=== PATIENT | female | born 1960 ===

== ENCOUNTER 2020-03-27 16:22 | Emergency (ER) | payer MEDICAID, SELFPAY ==
[2020-03-27 16:38] VITALS: BP 159/73; PULSE 74; RESP 18; TEMP 36.8; O2SAT 96; BMI 27.4
[2020-03-27 19:39] VITALS: BP 169/73; PULSE 72; RESP 18; TEMP 36.6; O2SAT 99
--- NOTE | 2020-03-27 19:58 | ED.FALL ---
HPI - Fall General Chief Complaint: Fall Stated Complaint: mechanical fall, left elbow pain Time Seen by Provider: 03/27/20 19:37 Source: patient Mode of arrival: ambulatory Limitations: no limitations History of Present Illness HPI Narrative: 60 y/o female who presents with left hip, left elbow and back pain after she was tripped up by 2 dogs and fell on the sidewalk today. She hit her head on the snow, did not lose consciousness. She is not on blood thinners. She was able to get up and run away. She reports soreness in her entire left back, hip and elbow (when she bends it fully). She denies headache or neck pain. She is able to ambulate normally. complaint: fall Onset (ago): hour(s) (6) Fall from: standing Fall witnessed: yes, by family and yes, by bystander Place fall occurred: street Loss of consciousness: none Prolonged down time: no Symptoms prior to fall: none Context: tripped/slipped Location of injury: back and pelvis Location of injury - extremities: left: shoulder and elbow Severity: mild Quality: aching Associated symptoms (after fall): denies Related Data Previous Rx's Medication Instructions Recorded cyclobenzaprine 10 mg PO TID PRN #10 tab 03/27/20 ibuprofen 600 mg PO Q8H PRN #20 tab 03/27/20 lidocaine [Lidoderm] 1 patch TOPICAL DAILY #15 ea 03/27/20 Allergies Allergy/AdvReac Type Severity Reaction Status Date / Time No Known Allergies Allergy Unverified 10/31/19 15:21 Review of Systems Review of Systems: Constitutional: No Fever, No Chills Cardiovascular: No Chest Pain, No SOB, No Orthopnea, No Edema Respiratory: No Cough, No Sputum, No Wheezing, No dyspnea Gastrointestinal: No Nausea, No Vomiting, No Diarrhea, No abdominal Pain Musculoskeletal: + joint pain, + Myalgias Skin: No Skin Lesions, No rash Neuro: No Weakness, No Numbness, No Dizziness, No Headache Psych: + Anxiety/Panic, No Depression Heme/Lymph: No Bruising, No Lymphadenopathy PMFSH Social History Social History Alcohol intake: never Smoking Status: Unknown if ever smoked Smoked in Last 30 Days: No Use of substances other than those prescribed or required for medical reasons: No Advance Directives: No Advance Directives Information Provided: No Physical Exam Vital Signs: Vital Signs: Last Vital Signs Temp 97.9 F 03/27/20 19:39 Pulse 72 03/27/20 19:39 Resp 18 03/27/20 19:39 BP 169/73 H 03/27/20 19:39 Pulse Ox 99 03/27/20 19:39 Body Mass Index 27.4 Appearance: Alert. Oriented X3. No acute distress. HEENT: normal inspection CVS: Normal heart rate and rhythm. Pulses normal. Respiratory: No respiratory distress. Skin: Skin warm and dry. Normal skin color. Normal skin turgor. No rashes. Extremities: left sided soft tissue tenderness of the hip Neuro: Oriented X 3. No motor deficit. No sensory deficit. Course Course Course Narrative: 60 y/o presenting with left sided pain after a mechanical fall outside earlier today. Given mechanism and exam findings there is very low suspicion for bony injury, fracture or traumatic intracranial injury. She is ambulating with steady gait and only has soft tissue tenderness and small abrasion to left elbow. Will treat for muscle contusions with NSAID and muscle relaxer. She has been counseled and she agrees with plan. She agrees to follow up with her PCP next week. She is stable for discharge. Critical Care Time Critical Care Time Critical Care Time: No Discharge Plan Discharge Clinical Impression: Abrasion Contusion Qualifiers: Encounter type: initial encounter Contusion area: hip Laterality: left Qualified Code(s): S70.02XA - Contusion of left hip, initial encounter Patient Disposition: Home, Self-Care Instructions: Contusion in Adults (ED), Abrasion (ED) Additional Instructions: No bending, lifting or twisting. Use ice several times per day for 20 minutes at a time for the next 48 hours and then change to heat. Take medications as prescribed to help with pain and discomfort. Follow up with your Primary Care Doctor this week. If your pain worsens, if you develop new severe, headache, numbness, tingling, weakness call 911 or come back to the ER right away for evaluation. Prescriptions: New cyclobenzaprine 10 mg tablet 10 mg PO TID PRN (Reason: muscle spasm) Qty: 10 RF: 0 lidocaine [Lidoderm] 5 % adhesive patch,medicated 1 patch topical DAILY Qty: 15 RF: 0 ibuprofen 600 mg tablet 600 mg PO Q8H PRN (Reason: pain) Qty: 20 RF: 0 Interventions: ED Discharge Assessment Last Done: 03/27/20 20:12 Print Language: English
[2020-03-27] MEDS: Acetaminophen 325 MG TABLET 975 MG PO (20:10)
[2020-03-27] MEDS: Ibuprofen 600 MG TABLET PO (20:10)
== END 2020-03-27 20:18 | disposition home or self-care (01) ==
PROVIDERS: Emergency Provider Emergency Medicine; PCP Nurse Practitioner Family
DX: S70.02XA Contusion of left hip, initial encounter (principal); S50.312A Abrasion of left elbow, initial encounter; W01.0XXA Fall on same level from slipping, tripping and stumbling without subsequent striking against object, initial encounter; Y93.K1 Activity, walking an animal; Y92.480 Sidewalk as the place of occurrence of the external cause; Y99.9 Unspecified external cause status
CPT/HCPCS: 99283; 99284

== ENCOUNTER 2020-12-11 15:16 | Outpatient (REF) | payer MEDICAID, SELFPAY ==
[2020-12-11 16:32] LABS: MANUAL DIFF FLAG NO
[2020-12-11 17:49] LABS: Basophils Percent Auto 0.4 % (0-2); Eosinophils Absolute Auto 0.1 X10*3/uL (0.0-0.4); Eosinophils Percent Auto 1.2 % (0-4); Hematocrit 38.3 % (37-47); Hemoglobin 12.2 g/dl (12.0-16.0); Imm Gran Abs Auto 0.01 X10*3/uL (0.00-0.03); Imm Gran Pct Auto 0.1 % (0.0-0.4); Lymphocytes Absolute Auto 2.3 X10*3/uL (1.2-4.9); Lymphocytes Percent Auto 31.6 % (20-40); Mean Corpuscular HGB Conc 31.9 g/dl (31.0-35.0); Mean Corpuscular Hemoglobin 27.1 pg (27.0-33.0); Mean Corpuscular Volume 85.1 fL (80-98); Mean Platelet Volume 11.8 fL (9.4-12.3); Monocytes Absolute Auto 0.5 X10*3/uL (0.1-1.2); Monocytes Percent Auto 6.8 % (2-11); Neutrophils Absolute Auto 4.4 X10*3/uL (2.0-8.3); Neutrophils Percent Auto 59.9 % (45-73); Platelet Count 199 X10*3/uL (160-400); White Blood Count 7.4 X10*3/uL (4.8-10.8)
[2020-12-11 18:06] LABS: Alanine Aminotransferase 17 U/L (0-31); Alkaline Phosphatase 73 U/L (39-117); Anion Gap 12 (12-20); Aspartate Amino Transferase 21 U/L (5-31); Bilirubin Total 0.3 mg/dL (0.0-1.0); Blood Urea Nitrogen 12 mg/dL (9-16); Calcium 8.9 mg/dL (8.4-10.2); Carbon Dioxide 27 mmol/L (22-29); Chloride 106 mmol/L (96-108); Estimated Glomerular Filt Rate > 60; Glucose Random 102 mg/dL (60-115); Sodium 141 mmol/L (135-145); Total Protein 6.5 g/dL (6.5-8.0)
== END 2020-12-11 15:17 | disposition home or self-care (01) ==
LOC: HO.LAB 15:16
PROVIDERS: PCP Registered Nurse Community Health; Visit Provider Nurse Practitioner
DX: Z01.818 Encounter for other preprocedural examination (principal)
CPT/HCPCS: 36415; 80053; 85025; 99202

== ENCOUNTER 2021-04-22 10:02 | Outpatient (REF) | payer MEDICAID, SELFPAY ==
--- NOTE | ~2021-04-22 | XR_ITS ---
EXAMINATION: XR ANKLE, RIGHT CLINICAL INFORMATION: Pain COMPARISON: 04/21/2009 TECHNIQUE: AP, lateral, and mortise views of the right ankle. FINDINGS: No fracture or dislocation. The ankle mortise is congruent. There is prominent hypertrophic spurring of the plantar aponeurosis and Achilles insertion to the calcaneus. Mild degenerative changes of the midfoot with small osteophytes noted. No joint effusion. The soft tissues are unremarkable. XR/XR ankle RT min 3V IMPRESSION: Mild degenerative change of the midfoot. Large heel spurs.
--- NOTE | ~2021-04-22 | XR_ITS ---
EXAMINATION: XR LUMBOSACRAL SPINE CLINICAL INFORMATION: Pain COMPARISON: 02/23/2011 TECHNIQUE: Three views of the lumbosacral spine. FINDINGS: No fracture or subluxation. Vertebral body height and alignment maintained. Disc spaces are maintained. Small endplate osteophytes are seen at the mid to lower lumbar spine. The sacroiliac joints are symmetric. The visualized sacrum is intact. Normal bowel gas pattern. XR/XR lumbar spine 2-3V IMPRESSION: Mild degenerative changes of the lumbar spine. These have progressed since 2011.
--- NOTE | ~2021-04-22 | XR_ITS ---
EXAMINATION: XR KNEE, RIGHT CLINICAL INFORMATION: Right knee pain. COMPARISON: 04/21/2009 TECHNIQUE: Four views of the right knee. FINDINGS: No fracture or subluxation. Compartmental joint spaces are maintained. Small tricompartmental marginal osteophytes. No joint effusion. Enthesophyte formation of the patella. The soft tissues appear unremarkable. XR/XR knee RT 4V IMPRESSION: Mild tricompartment degenerative changes of the right knee.
== END 2021-04-22 10:03 | disposition home or self-care (01) ==
LOC: HO.XRAY 10:02
PROVIDERS: Absent Provider Registered Nurse Community Health; PCP Registered Nurse Community Health; Visit Provider Emergency Medicine
DX: M25.561 Pain in right knee (principal); M54.41 Lumbago with sciatica, right side; M79.671 Pain in right foot
CPT/HCPCS: 72100; 73564; 73610

== ENCOUNTER → 2021-05-04 14:53 | Outpatient (BNVA) | payer MEDICAID, SELFPAY | PROVIDERS: PCP Registered Nurse Community Health; Visit Provider Nurse Practitioner Family | DX: M47.816 Spondylosis without myelopathy or radiculopathy, lumbar region (principal); M25.561 Pain in right knee; M17.11 Unilateral primary osteoarthritis, right knee; M54.50 Low back pain, unspecified; M53.3 Sacrococcygeal disorders, not elsewhere classified; M25.562 Pain in left knee | CPT/HCPCS: 99202 ==

== ENCOUNTER 2021-05-25 06:07 | Outpatient (REF) | payer MEDICAID, SELFPAY | END 2021-05-25 06:08 | disposition home or self-care (01) | LOC: HO.RADIR 06:07 | PROVIDERS: Visit Provider Anesthesiology | DX: Z13.89 Encounter for screening for other disorder (principal) ==

== ENCOUNTER 2021-06-15 10:53 | Outpatient (REF) | payer MEDICAID, SELFPAY ==
--- NOTE | ~2021-06-15 | MM_ITS ---
EXAMINATION: MM SCREENING DIGITAL BREAST TOMOSYNTHESIS, BILATERAL CLINICAL INFORMATION: Screening. Asymptomatic. The lifetime risk of breast cancer based on the Tyrer-Cuzick Model is 4%. COMPARISON: Mammography: 12/18/2018, 09/12/2017, 08/03/2016 TECHNIQUE: Digital breast tomosynthesis is performed in both the craniocaudal and mediolateral oblique views along with computer-aided detection (CAD). Synthesized 2D images are generated from the tomosynthesis. FINDINGS: There are scattered areas of fibroglandular density (ACR BI-RADS breast composition Category b). There are no significant masses, abnormal calcifications, or other abnormalities. Parenchymal pattern is similar to prior studies. The axilla and skin contours are unremarkable. MM/MM tomosynthesis screening BI IMPRESSION: No mammographic evidence of malignancy. ASSESSMENT: BI-RADS 1: Negative RECOMMENDATION: Routine annual mammography screening. This patient's information was entered into a reminder system with a target due date for their next mammogram.
== END 2021-06-15 10:54 | disposition home or self-care (01) ==
LOC: HO.MAMMO 10:53
PROVIDERS: PCP Registered Nurse Community Health; Visit Provider Registered Nurse Community Health
DX: Z12.31 Encounter for screening mammogram for malignant neoplasm of breast (principal)
CPT/HCPCS: 77063; 77067

== ENCOUNTER 2021-07-09 06:10 | Outpatient (REF) | payer MEDICAID, SELFPAY ==
--- NOTE | ~2021-07-09 | FL_ITS ---
EXAMINATION: XR FLUOROSCOPY WITH IMAGES CLINICAL INFORMATION: Unilateral primary osteoarthritis right knee. COMPARISON: Right knee 04/22/2021 TECHNIQUE: Fluoroscopy performed by Dalia Foley NP Fluoroscopy time: 0.1 minutes DAP: 0.179 Gycm2 Images: 2 FINDINGS: There are 2 digital images obtained revealing needle positioned along the medial and lateral distal femur and medial proximal tibia for pain management. Visualized joint space appears unremarkable. There is mild anterior-superior patellar enthesophyte. No loose body seen. FL/FL guidance in treatment room IMPRESSION: Fluoroscopy guidance was provided to the referrer for pain management of right knee.
== END 2021-07-09 06:11 | disposition home or self-care (01) ==
LOC: HO.RADIR 06:10
PROVIDERS: Visit Provider Internal Medicine
DX: M17.11 Unilateral primary osteoarthritis, right knee (principal)
CPT/HCPCS: 64450; 64454; J2795

== ENCOUNTER → 2021-08-03 13:44 | Outpatient (BNVA) | payer MEDICAID, SELFPAY | PROVIDERS: PCP Registered Nurse Community Health; Visit Provider Nurse Practitioner Family | DX: M70.61 Trochanteric bursitis, right hip (principal); M70.62 Trochanteric bursitis, left hip; M17.11 Unilateral primary osteoarthritis, right knee; M25.561 Pain in right knee; M47.816 Spondylosis without myelopathy or radiculopathy, lumbar region | CPT/HCPCS: 99212 ==

== ENCOUNTER 2021-08-09 07:28 | Day surgery (SDC) | payer MEDICAID, SELFPAY ==
[2021-08-04 09:58] VITALS: BMI 29.8
--- NOTE | 2021-08-06 09:42 | HO.ANESPROP2 ---
Documented by User: Nathalie Sesay NP 08/06/21 09:42 HPI - Anesthesia Eval Consult details Narrative: 61yo F for Colonoscopy PMFSH Active Problems Active Problems: All Active Problems (Updated 08/05/21 @ 19:53 by IRENA Ivory) Greater trochanteric bursitis of both hips (Acute) Colon cancer screening (Acute) Arthritis of knee, right (Acute) Right knee pain (Acute) Lumbar spondylosis (Acute) Myofascial low back pain (Acute) Sacroiliac joint dysfunction of both sides (Acute) Left knee pain (Acute) Past Medical History Medical History Anxiety Asthma Diabetes GERD (gastroesophageal reflux disease) HTN (hypertension) Hx of hemorrhoids Seasonal allergies Family History Family History Mother High blood pressure Diabetes Father High blood pressure Diabetes Social History Social History Alcohol intake: never Advance Directives: No Advance Directives Information Provided: Yes Meds Allergies Allergy/AdvReac Type Severity Reaction Status Date / Time No Known Allergies Allergy Verified 08/09/21 08:07 Home Medications Medication Instructions Recorded Confirmed Last Taken Type albuterol sulfate 90 mcg/actuation 2 puff PO Q4-6H PRN 12/11/20 Unknown History aerosol inhaler (ProAir HFA) cholecalciferol (vitamin D3) 50 50 mcg PO DAILY 12/11/20 Unknown History mcg (2,000 unit) capsule cholecalciferol (vitamin D3) 50 50 mcg PO DAILY 12/11/20 Unknown History mcg (2,000 unit) tablet fluticasone propionate 110 2 puff inhalation BID 12/11/20 Unknown History mcg/actuation HFA aerosol inhaler (Flovent HFA) fluticasone propionate 50 2 spray intranasal DAILY 12/11/20 Unknown History mcg/actuation nasal spray,suspension lisinopril 20 mg tablet 20 mg PO DAILY 12/11/20 Unknown History loratadine 10 mg tablet 10 mg PO DAILY PRN 12/11/20 Unknown History metformin 500 mg tablet 500 mg PO 12/11/20 Unknown History omeprazole 20 mg capsule,delayed mg PO QAM 12/11/20 Unknown History release risperidone 1 mg tablet 1 mg PO BEDTIME 12/11/20 Unknown History sertraline 100 mg tablet 100 mg PO DAILY 12/11/20 Unknown History tramadol 50 mg tablet 50 mg PO TID-QID 12/11/20 Unknown History Exam Exam Date and Time: August 06, 2021 0942 Height,Weight and Vital Signs: Height 5 ft 2 in Weight 73.936 kg Assessment and Plan Assessment Anesthesia Assessment: Chart Reviewed Documented by User: Cordelia Perkins MD 08/09/21 08:22 [facility] Past Medical History Medical History Anxiety Asthma Diabetes GERD (gastroesophageal reflux disease) HTN (hypertension) Hx of hemorrhoids Seasonal allergies Family History Family History Mother High blood pressure Diabetes Father High blood pressure Diabetes Family history of problems with anesthesia: No Surgical History History of Problems with Anesthesia: No Social History Social History Alcohol intake: never Advance Directives: No Advance Directives Information Provided: Yes Meds Allergies Allergy/AdvReac Type Severity Reaction Status Date / Time No Known Allergies Allergy Verified 08/09/21 08:07 Home Medications Medication Instructions Recorded Confirmed Last Taken Type albuterol sulfate 90 mcg/actuation 2 puff PO Q4-6H PRN 12/11/20 Unknown History aerosol inhaler (ProAir HFA) cholecalciferol (vitamin D3) 50 50 mcg PO DAILY 12/11/20 Unknown History mcg (2,000 unit) capsule cholecalciferol (vitamin D3) 50 50 mcg PO DAILY 12/11/20 Unknown History mcg (2,000 unit) tablet fluticasone propionate 110 2 puff inhalation BID 12/11/20 Unknown History mcg/actuation HFA aerosol inhaler (Flovent HFA) fluticasone propionate 50 2 spray intranasal DAILY 12/11/20 Unknown History mcg/actuation nasal spray,suspension lisinopril 20 mg tablet 20 mg PO DAILY 12/11/20 Unknown History loratadine 10 mg tablet 10 mg PO DAILY PRN 12/11/20 Unknown History metformin 500 mg tablet 500 mg PO 12/11/20 Unknown History omeprazole 20 mg capsule,delayed mg PO QAM 12/11/20 Unknown History release risperidone 1 mg tablet 1 mg PO BEDTIME 12/11/20 Unknown History sertraline 100 mg tablet 100 mg PO DAILY 12/11/20 Unknown History tramadol 50 mg tablet 50 mg PO TID-QID 12/11/20 Unknown History Exam Airway Mallampati Class: II (Only 3 teeth present) TM Dist: >3cm Neck ROM: Full Heart: rrr Lungs: cta Assessment and Plan Assessment Anesthesia Assessment: Anesthesia Plan Discussed and Chart Reviewed Final Anesthetic Review Family History of Problems with Anesthesia: No History of Problems with Anesthesia: No NPO: Yes ASA Class: III Final Preanesthetic Review: No Changes in Pt Med Stat, Meds/Allgs Chart Reviewed and Consent Obtained/Reviewed Patient Risk: Intermediate Procedure Risk: Intermediate Anesthetic Plan Anesthetic Plan: MAC: Disposition: Standard PACU
--- NOTE | 2021-08-09 07:22 | P.HPSUR_ITS ---
Pre-Procedural Eval Section A Date of Service: 08/09/21 The patient is an INPATIENT: No The History & Physical has been completed within 30 days and I have reviewed it.: No Section B Chief Complaint: screening Details of Present Illness: Colon cancer screening, chronic constipation Relevant Family History (Specify if Yes): No Relevant Social History: None Present Medications: see Short Stay Collaborative assessment Medical History: Significant History (Hypertension Obesity Asthma GERD Depression/anxiety Allergic rhinitis Osteoarthritis of multiple joints Overactive bladder HISTORY OF HEPATITIS C - pt denies Constipation Hemorrhoids- external Diabetes) History of Previous Operations: Relevant previous surgery/procedure and date(s) (Status post tubal ligation) Allergies: Allergies Allergy/AdvReac Type Severity Reaction Status Date / Time No Known Allergies Allergy Verified 08/03/21 13:58 Review of Systems Sugical H&P ROS: Negative: Constitution, Cardiovascular and Respiratory and Yes, Specify: Gastrointestinal (hemorrhoids) Exam Surgical H&P Exam: Normal: Heart, Normal: Lungs, Normal: Extremities and Normal: Abdomen Plan Diagnosis/Plan: Unchanged I have reviewed the history and physical and performed a pertinent physical examination on my patient. No changes have occurred unless specified.
[2021-08-09 07:43] VITALS: BMI 29.2
[2021-08-09] MEDS: Sodium Phosphate,Mono-Dibasic 133 ML ENEMA PR (07:55)
[2021-08-09 08:01] LABS: Glucose, Whole Blood 86 mg/dL (60-115)
[2021-08-09 08:05] VITALS: BP 159/83; PULSE 69; RESP 16; TEMP 36.3; O2SAT 99
[2021-08-09] MEDS: Lactated Ringers 1,000 ML 100 ML IVCONT (08:17)
--- NOTE | 2021-08-09 08:25 | PM.OP ---
Brief Operative Note Date of Service: 08/09/21 Pre-op diagnosis: Colon cancer screening, prolapsing hemorrhoids Post-op diagnosis: other (Colon polyp, diverticulosis, hemorrhoids, prominent ileocecal valve) Procedure: COLONOSCOPY TILL CECUM WITH BIOPSIES AND SNARE POLYPECTOMY Consent: Indications for the procedure and potential complications of bleeding, perforation, reaction to medications and missed diagnosis were discussed with the patient and informed consent was obtained. Instrument: Olympus PCF H 190 L variable stiffness pediatric colonoscope Monitoring: Vital signs and clinical assessment, intermittent blood pressure monitoring, continuous EKG monitoring, Pulse oximetry and Carbon Dioxide monitoring were done throughout the procedure. Colon withdrawl time was 17 minutes. Procedure: The patient was placed in the left lateral decubitis position and pre-procedure medications were administered. After a digital rectal examination of the ano-rectum, the video colonoscope was inserted into the rectum and advanced through the colon to the cecum. The colonoscope was slowly withdrawn in a retrograde panoramic fashion and the colon mucosa was carefully examined including a retroflexed view of the rectum. Findings and interventions are described below. Procedure Difficulty: Without difficulty Findings: Terminal Ileum: Not evaluated Cecum: Prominent ICV - biopsies obtained Ascending Colon: Normal Transverse Colon: Normal Descending Colon: Moderate diverticulosis Sigmoid Colon: Moderate diverticulosis Rectum: A 7-8 mm sessile polyp removed with the cold snare Ano-rectum: Moderate internal hemorrhoids Colon preparation: Good Impression and Post Procedure Diagnosis: Colonoscopy Findings: One small polyp removed Moderate diverticulosis seen in the left colon Moderate hemorrhoids on retroflexed exam. Plan: Await pathology results Patient has an appointment on 09/01/21 in the GI Clinic with Kelley Gonzalez NP. Repeat Colonoscopy interval based on path results - in 5 years if polyps are adenomatous and 10 years if polyps are hyperplastic. Above findings were reviewed with the patient and colon polyps, hemorrhoids and diverticulosis handouts were given in the discharge area. Pt was advised to use preparation H p.r.n. for hemorrhoids in case of bleeding or pain. Surgeon: Uche Montalvo MD Anesthesia: MAC (Dr Garsia) Was an Operations Project Manager used for this Procedure?: Yes Operations Project Manager: Radha Hallman Estimated blood loss (mL): 0 Pathology: other ( A. ileocecal valve bxs B. rectal polyp) Condition: stable Disposition: PACU
[2021-08-09 09:23] VITALS: BP 109/57; PULSE 65; RESP 19; TEMP 36.4; O2SAT 99
--- NOTE | 2021-08-09 09:29 | P.OP_ITS ---
Operative Note Operative Note Date of Service: 08/09/21 Narrative: Pre-op diagnosis: Colon cancer screening, prolapsing hemorrhoids Post-op diagnosis:?other (Colon polyp, diverticulosis, hemorrhoids, prominent ileocecal valve) Procedure: COLONOSCOPY TILL CECUM WITH BIOPSIES AND SNARE POLYPECTOMY Consent: Indications for the procedure and potential complications of bleeding, perforation, reaction to medications and missed diagnosis were discussed with the patient and informed consent was obtained. Instrument: Olympus PCF H 190 L variable stiffness pediatric colonoscope Monitoring: Vital signs and clinical assessment, intermittent blood pressure monitoring, continuous EKG monitoring, Pulse oximetry and Carbon Dioxide monitoring were done throughout the procedure. Colon withdrawl time was 17 minutes. Procedure: The patient was placed in the left lateral decubitis position and pre-procedure medications were administered. After a digital rectal examination of the ano-rectum, the video colonoscope was inserted into the rectum and advanced through the colon to the cecum. The colonoscope was slowly withdrawn in a retrograde panoramic fashion and the colon mucosa was carefully examined including a retroflexed view of the rectum. Findings and interventions are described below. Procedure Difficulty: Without difficulty Findings: Terminal Ileum: Not evaluated Cecum:? Prominent ICV - biopsies obtained Ascending Colon:? Normal Transverse Colon:? Normal Descending Colon:? Moderate diverticulosis Sigmoid Colon:? Moderate diverticulosis Rectum: A 7-8 mm sessile polyp removed with the cold snare Ano-rectum:? Moderate internal hemorrhoids Colon preparation:? Good? Impression and Post Procedure Diagnosis: Colonoscopy Findings: One small polyp removed Moderate diverticulosis seen in the left colon Moderate hemorrhoids on retroflexed exam. Plan: Await pathology results Patient has an appointment on 09/01/21 in the GI Clinic with? Kelley Gonzalez NP. Repeat Colonoscopy interval based on path results - in 5 years if polyps are adenomatous and 10 years if polyps are hyperplastic. Above findings were reviewed with the patient and colon polyps, hemorrhoids and diverticulosis handouts were given in the discharge area. Pt was advised to use preparation H p.r.n. for hemorrhoids in case of bleeding or pain. Surgeon: Uche Montalvo MD Anesthesia:?MAC (Dr Garsia) Was an Laydown Machine Operator used for this Procedure?:?Yes Laydown Machine Operator:?Radha Hallman Estimated blood loss (mL):?0 Pathology:?other ( A. ileocecal valve bxs? B. rectal polyp) Condition:?stable Disposition:?PACU
[2021-08-09 09:38] VITALS: BP 133/69; PULSE 53; RESP 21; O2SAT 100
[2021-08-09 09:53] VITALS: BP 138/67; PULSE 54; RESP 20; TEMP 36.4; O2SAT 100
== END 2021-08-09 11:06 | disposition home or self-care (01) ==
PROVIDERS: PCP Registered Nurse Community Health; Visit Provider Internal Medicine Gastroenterology
PROC: 0DJD8ZZ Inspection of Lower Intestinal Tract, Via Natural or Artificial Opening Endoscopic (ICD-10-PCS; CPT 45378; principal; 2021-08-09 08:30)
DX: Z12.11 Encounter for screening for malignant neoplasm of colon (principal); D12.8 Benign neoplasm of rectum; K57.30 Diverticulosis of large intestine without perforation or abscess without bleeding; K64.8 Other hemorrhoids; K59.04 Chronic idiopathic constipation; K21.9 Gastro-esophageal reflux disease without esophagitis; I10 Essential (primary) hypertension; J45.909 Unspecified asthma, uncomplicated; F41.8 Other specified anxiety disorders; E11.9 Type 2 diabetes mellitus without complications; Z79.1 Long term (current) use of non-steroidal anti-inflammatories (NSAID); Z79.51 Long term (current) use of inhaled steroids; Z79.84 Long term (current) use of oral hypoglycemic drugs; Z79.899 Other long term (current) drug therapy
CPT/HCPCS: 45385; 45380; 82947; 88305

== ENCOUNTER 2021-08-24 05:58 | Outpatient (REF) | payer MEDICAID, SELFPAY | END 2021-08-24 05:59 | disposition home or self-care (01) | LOC: HO.RADIR 05:58 | PROVIDERS: Visit Provider Anesthesiology | DX: M70.62 Trochanteric bursitis, left hip (principal); M17.11 Unilateral primary osteoarthritis, right knee; M25.562 Pain in left knee; M70.61 Trochanteric bursitis, right hip | CPT/HCPCS: 64447 ==

== ENCOUNTER → 2021-08-31 08:46 | Outpatient (BNVA) | payer MEDICAID, SELFPAY | PROVIDERS: PCP Registered Nurse Community Health; Visit Provider Nurse Practitioner Family | DX: M25.561 Pain in right knee (principal); M17.11 Unilateral primary osteoarthritis, right knee | CPT/HCPCS: 99212 ==

== ENCOUNTER → 2021-09-01 09:44 | Outpatient (BNVA) | payer MEDICAID, SELFPAY | PROVIDERS: PCP Registered Nurse Community Health; Visit Provider Nurse Practitioner | DX: D12.8 Benign neoplasm of rectum (principal); Z98.890 Other specified postprocedural states | CPT/HCPCS: 99212 ==

== ENCOUNTER 2021-11-25 11:31 | Outpatient (REF) | payer MEDICAID, SELFPAY ==
--- NOTE | ~2021-11-25 | XR_ITS ---
EXAMINATION: XR BILATERAL HIPS WITH AP PELVIS CLINICAL INFORMATION: Unilateral primary osteoarthritis. COMPARISON: None TECHNIQUE: AP view of the pelvis and single views of each hip were obtained. FINDINGS: AP pelvis: There is a normal symmetry of SI joints and hip joints. No bony erosive changes, fracture, lytic or sclerotic process seen. Right hip: 2 views of right hip reveal maintained hip joint space. No bony erosive changes. The soft tissues are normal. Left hip: 2 views of left ribs reveal no fracture, dislocation or bony erosive changes. The soft tissues are normal. XR/XR hips TEVIN min 3V IMPRESSION: 1. Unremarkable AP pelvis and bilateral hip exam. No visible acute fracture or dislocation seen in either hip.
== END 2021-11-25 11:32 | disposition home or self-care (01) ==
LOC: HO.XRAY 11:31
PROVIDERS: Visit Provider Anesthesiology
DX: M16.10 Unilateral primary osteoarthritis, unspecified hip (principal); M17.11 Unilateral primary osteoarthritis, right knee
CPT/HCPCS: 73522; 99212

== ENCOUNTER → 2022-04-13 14:20 | Outpatient (BNVA) | payer MEDICAID, SELFPAY | PROVIDERS: PCP Registered Nurse Community Health; Visit Provider Anesthesiology | DX: M76.31 Iliotibial band syndrome, right leg (principal); M46.1 Sacroiliitis, not elsewhere classified; M53.3 Sacrococcygeal disorders, not elsewhere classified; M16.11 Unilateral primary osteoarthritis, right hip; M25.561 Pain in right knee; M17.11 Unilateral primary osteoarthritis, right knee; G89.29 Other chronic pain | CPT/HCPCS: 99212 ==

== ENCOUNTER 2022-05-10 06:13 | Outpatient (REF) | payer MEDICAID, SELFPAY | END 2022-05-10 06:14 | disposition home or self-care (01) | LOC: CF 06:13 | PROVIDERS: Visit Provider Anesthesiology | DX: Z13.89 Encounter for screening for other disorder (principal) ==

== ENCOUNTER 2022-06-28 06:11 | Outpatient (REF) | payer MEDICAID, SELFPAY ==
--- NOTE | ~2022-06-28 | FL_ITS ---
EXAMINATION: XR FLUOROSCOPY WITH IMAGES CLINICAL INFORMATION: Sacrococcygeal disorders. COMPARISON: None available. TECHNIQUE: Fluoroscopy Supervised By: Dr. Gianfranco Caro. Fluoroscopy Time: 0.1 minutes. Cumulative Dose: 1.47 mGy. DAP: 0.401 Gy-cm2. Images: 1. FINDINGS: Single needle is seen overlying the right sacroiliac joint with some contrast within the soft tissues and question vascular or lymphatic. FL/FL guidance in treatment room IMPRESSION: Intraoperative fluoroscopy for pain management procedure.
== END 2022-06-28 06:12 | disposition home or self-care (01) ==
LOC: CF 06:11
PROVIDERS: Visit Provider Anesthesiology
DX: M53.3 Sacrococcygeal disorders, not elsewhere classified (principal); G89.29 Other chronic pain; M46.1 Sacroiliitis, not elsewhere classified
CPT/HCPCS: 27096

== ENCOUNTER 2022-08-12 18:32 | Emergency (ER) | payer MEDICAID, SELFPAY ==
--- NOTE | 2022-08-12 18:45 | ECG_ITS ---
Test Reason : SYNCOPE Blood Pressure : / mmHG Vent. Rate : 080 BPM Atrial Rate : 080 BPM P-R Int : 140 ms QRS Dur : 088 ms QT Int : 356 ms P-R-T Axes : 038 013 019 degrees QTc Int : 410 ms Normal sinus rhythm Minimal voltage criteria for LVH, may be normal variant ( R in aVL ) Borderline ECG No previous ECGs available Referred By: Generic ED Physician Electronically Signed By:Surjit Pate
[2022-08-12 18:46] VITALS: BP 118/66; O2SAT 93
[2022-08-12 18:50] VITALS: BP 113/71; PULSE 86; RESP 20; TEMP 36.9; O2SAT 95; BMI 33.4
[2022-08-12 19:21] LABS: Anion Gap 13 (12-20); Blood Urea Nitrogen 17 mg/dL (9-16); Calcium 9.8 mg/dL (8.4-10.2); Carbon Dioxide 25 mmol/L (22-29); Chloride 107 mmol/L (96-108); Creatinine Clr Calc Pharmacy 73.8; Estimated Glomerular Filt Rate > 60; Ethanol 21 mg/dL; Glucose Random 132 mg/dL (60-115); Potassium 4.1 mmol/L (3.3-5.1); Sodium 141 mmol/L (135-145)
[2022-08-12 19:31] LABS: MANUAL DIFF FLAG NO
[2022-08-12 19:33] LABS: Basophils Percent Auto 0.5 % (0-2); Eosinophils Absolute Auto 0.1 X10*3/uL (0.0-0.4); Eosinophils Percent Auto 0.9 % (0-4); Hematocrit 35.1 % (37.0-47.0); Hemoglobin 11.2 g/dl (12.0-16.0); Imm Gran Abs Auto 0.01 X10*3/uL (0.00-0.03); Imm Gran Pct Auto 0.2 % (0.0-0.4); Lymphocytes Absolute Auto 1.2 X10*3/uL (1.2-4.9); Lymphocytes Percent Auto 20.7 % (20-40); Mean Corpuscular HGB Conc 31.9 g/dl (31.0-35.0); Mean Corpuscular Hemoglobin 26.7 pg (27.0-33.0); Mean Corpuscular Volume 83.6 fL (80.0-98.0); Mean Platelet Volume 11.4 fL (9.4-12.3); Monocytes Absolute Auto 0.4 X10*3/uL (0.1-1.2); Monocytes Percent Auto 6.1 % (2-11); Neutrophils Absolute Auto 4.2 x10*3/uL (2.0-8.3); Neutrophils Percent Auto 71.6 % (45-73); Platelet Count 163 X10*3/uL (160-400); Red Cell Distribution Width 14.6 % (11.0-16.0); White Blood Count 5.9 X10*3/uL (4.8-10.8)
[2022-08-12 19:37] LABS: Alanine Aminotransferase 15 U/L (0-31); Alkaline Phosphatase 66 U/L (39-117); Aspartate Amino Transferase 20 U/L (5-31); Bilirubin Direct 0.1 mg/dL (0.0-0.5); Bilirubin Total 0.3 mg/dL (0.0-1.0); Total Protein 6.7 g/dL (6.5-8.0)
[2022-08-12 19:40] LABS: Troponin-I High Sensitivity < 2.7 ng/L (<3.5-17.0)
--- NOTE | 2022-08-12 20:11 | ED.SYNCOPE ---
HPI - Syncope General Chief Complaint: Syncope Stated Complaint: rt side pain loc Time Seen by Provider: 08/12/22 19:10 Source: patient and family Mode of arrival: EMS Limitations: no limitations History of Present Illness HPI narrative: Patient is a 62-year-old female who presents emergency department via EMS for a syncopal episode. Her sister is present at bedside. Reportedly patient was outdoors in the heat, she had a beer and smokes marijuana before heading inside into her home. While her sister was doing her hair she said that she suddenly felt dizzy and then had a syncopal episode. Per her sister, she was not responsive for a few seconds. She tapped the patient on her cheek and then she awoke. She was sitting in a chair when this occurred there is no fall or injury. At this time she denies any physical complaints aside from chronic right back and hip pain. She denies headache, vision changes, neck pain or neck stiffness, dizziness, lightheadedness, chest pain, shortness of breath, difficulty breathing, nausea, vomiting, abdominal pain. Related Data Home Medications Medication Instructions Recorded Confirmed albuterol sulfate 90 mcg/actuation 2 puff PO Q4-6H PRN 12/11/20 aerosol inhaler (ProAir HFA) cholecalciferol (vitamin D3) 50 50 mcg PO DAILY 12/11/20 mcg (2,000 unit) tablet fluticasone propionate 110 2 puff inhalation BID 12/11/20 mcg/actuation HFA aerosol inhaler (Flovent HFA) fluticasone propionate 50 2 spray intranasal DAILY 12/11/20 mcg/actuation nasal spray,suspension lisinopril 20 mg tablet 20 mg PO DAILY 12/11/20 loratadine 10 mg tablet 10 mg PO DAILY PRN 12/11/20 metformin 500 mg tablet 500 mg PO 12/11/20 omeprazole 20 mg capsule,delayed mg PO QAM 12/11/20 release risperidone 1 mg tablet 1 mg PO BEDTIME 12/11/20 sertraline 100 mg tablet 100 mg PO DAILY 12/11/20 Previous Rx's Medication Instructions Recorded ibuprofen 600 mg tablet 600 mg PO Q8H PRN pain #20 tabs 03/27/20 lidocaine 5 % topical patch 1 patch topical DAILY #15 ea 03/27/20 (Lidoderm) tizanidine 4 mg tablet 4 mg PO Q8H PRN for muscle spasm 07/23/21 30 days #90 tabs acetaminophen 500 mg tablet 1,000 mg PO Q8H PRN for pain #180 08/03/21 tabs hydrocortisone 1 % topical cream 1 appl topical BID-QID PRN skin 08/10/21 (Preparation H Hydrocortisone) irritation 90 days #453.6 grams Allergies Allergy/AdvReac Type Severity Reaction Status Date / Time No Known Allergies Allergy Verified 04/13/22 14:21 Review of Systems Review of Systems: Yes all other systems are reviewed and are negative [facility] Past Medical History Attestation statement: The following information was validated with the patient. Source: old records reviewed Medical History Anxiety Asthma Colon cancer screening Diabetes GERD (gastroesophageal reflux disease) HTN (hypertension) Hx of hemorrhoids Seasonal allergies Surgical History Hx of colonoscopy Family History Family History Mother High blood pressure Diabetes Father High blood pressure Diabetes Social History Social History Alcohol intake: current Alcohol intake frequency: does not drink Alcohol type: beer Patient Tobacco Use Status: Never used Tobacco Use of substances other than those prescribed or required for medical reasons: Yes Substance Use Type: Marijuana Last Used Substance: Hours (ago) Advance Directives: No Advance Directives Information Provided: No Physical Exam Vital Signs: Vital Signs: Last Vital Signs Temp 97.7 F 08/12/22 23:53 Pulse 61 08/12/22 23:53 Resp 12 08/12/22 23:53 BP 122/64 08/12/22 23:53 Pulse Ox 98 08/12/22 23:53 O2 Del Method Room Air 08/12/22 23:53 BMI result Body Mass Index 33.4 Appearance: Alert.?Oriented to person, place and time. No acute distress.?Normal affect. Eyes: Pupils equal, round and reactive to light.? ENT: Pharynx normal.?? Neck: Normal inspection.? Neck supple.?? CVS: Heart sounds normal. Normal heart rate and rhythm.? Pulses normal.?? Respiratory: No respiratory distress.? Lung sounds clear to auscultation bilaterally?? Abdomen: Soft and non-tender. Normoactive bowel sounds. No pulsatile mass.?? Skin: Skin warm and dry.? Normal skin color.? Extremities: No lower extremity edema.? No calf ttp? Neuro: Moves all extremities spontaneously. Sensation intact bilaterally. CN II-XII intact. No focal neuro deficits. Ambulates with normal steady gait. Course Reevaluation(s) Reevaluation #1: CBC reveals no leukocytosis, patient has a mild normocytic anemia, no active concerns for bleeding. CMP is overall unremarkable. Initial troponin <2.7, EKG revealing normal sinus rhythm no acute ischemic findings, not consistent with ACS/ STEMI, however given time of onset will obtain delta troponin for further evaluation. Orthostatic vital signs were negative. I suspect that the syncopal episode was likely in part due to her consumption of alcoholic beverage in addition to marijuana as she has reported that this has happened in the past when consuming both. Plan to obtain D-dimer to exclude pulmonary embolism, although she is not in any apparent respiratory distress has no hypoxia, or tachycardia. Reviewed this case with ED attending Dr. Castle, who agrees with plan of care. Time: 21:30 Reevaluation #2: Delta troponin 2.7, not consistent with ACS at this time., D-dimer 176 not consistent with pulmonary embolism. Patient has been without symptom all G while in the emergency department, she is ambulatory with a steady gait. Conscious alert and oriented x4. Stable for discharge, advised outpatient follow-up with primary care provider. Discussed strict return precautions. All questions answered. Time: 23:01 Medical Decision Making Medical Decision Making MDM Narrative: Patient is a 62-year-old female with past medical history of bilateral sacroiliitis, hip arthritis, diabetes, GERD, hypertension, asthma presenting to emergency department for evaluation after a syncopal episode without any fall or injury. At the time of my examination patient is well-appearing, nontoxic, afebrile. She is conscious alert and oriented x4, no focal neurological deficits. Will obtain CBC to evaluate for leukocytosis/ anemia, CMP and lipase to evaluate for abnormal electrolytes /abnormal renal function/ abnormal hepatic/biliary function, EKG and troponin to evaluate for ischemia/ACS. Differential Diagnosis Differential Diagnoses: The differential diagnosis associated with the presentation includes (ACS, pulmonary embolism, electrolyte abnormality, seizure, vasovagal syncope, orthostatic hypotension, polysubstance reaction) Admission/Observation Consideration of admission/observation: Escalation of care including admission/observation considered (I considered hospitalization for ACS syncope, however after review of laboratory findings and EKG as per course, do not feel that admission is warranted at this time.) Lab Data MDM Lab Attestation statement: I reviewed the patient's lab results. (Please see course for additional details) 08/12/22 18:56 08/12/22 18:56 Labs: Lab Results 08/12/22 08/12/22 08/12/22 Range/Units 18:56 18:56 18:56 WBC 5.9 (4.8-10.8) X10*3/uL RBC 4.20 (4.20-5.50) X10*6/uL Hgb 11.2 L (12.0-16.0) g/dl Hct 35.1 L (37.0-47.0) % MCV 83.6 (80.0-98.0) fL MCH 26.7 L (27.0-33.0) pg MCHC 31.9 (31.0-35.0) g/dl RDW 14.6 (11.0-16.0) % Plt Count 163 (160-400) X10*3/uL MPV 11.4 (9.4-12.3) fL Immature Gran % (Auto) 0.2 (0.0-0.4) % Neut % (Auto) 71.6 (45-73) % Lymph % (Auto) 20.7 (20-40) % [place] % (Auto) 6.1 (2-11) % Eos % (Auto) 0.9 (0-4) % Baso % (Auto) 0.5 (0-2) % Lymph # (Auto) 1.2 (1.2-4.9) X10*3/uL [place] # (Auto) 0.4 (0.1-1.2) X10*3/uL Eos # (Auto) 0.1 (0.0-0.4) X10*3/uL Baso # (Auto) 0.0 (0.0-0.2) X10*3/uL Abs Immat Gran (auto) 0.01 (0.00-0.03) X10*3/uL Absolute Neuts (auto) 4.2 (2.0-8.3) x10*3/uL Absolute Nucleated RBC 0.000 (0.0-0.012) X10*3/uL Nucleated RBC % (auto) 0.0 (0.0-0.2) /100WBC D-Dimer High Sensitivty NG/ML Sodium 141 (135-145) mmol/L Potassium 4.1 (3.3-5.1) mmol/L Chloride 107 (96-108) mmol/L Carbon Dioxide 25 (22-29) mmol/L Anion Gap 13 (12-20) BUN 17 H (9-16) mg/dL Creatinine 0.66 (0.5-1.4) mg/dL Estim Creat Clear Calc 73.8 Estimated GFR > 60 Random Glucose 132 H (60-115) mg/dL Calcium 9.8 D (8.4-10.2) mg/dL Total Bilirubin 0.3 (0.0-1.0) mg/dL Direct Bilirubin 0.1 (0.0-0.5) mg/dL AST 20 (5-31) U/L ALT 15 (0-31) U/L Alkaline Phosphatase 66 (39-117) U/L Troponin I High Sens < 2.7 (<3.5-17.0) ng/L Total Protein 6.7 (6.5-8.0) g/dL Albumin 4.0 (3.5-5.0) g/dL Ethyl Alcohol 21 mg/dL 08/12/22 08/12/22 Range/Units 21:52 21:52 WBC (4.8-10.8) X10*3/uL RBC (4.20-5.50) X10*6/uL Hgb (12.0-16.0) g/dl Hct (37.0-47.0) % MCV (80.0-98.0) fL MCH (27.0-33.0) pg MCHC (31.0-35.0) g/dl RDW (11.0-16.0) % Plt Count (160-400) X10*3/uL MPV (9.4-12.3) fL Immature Gran % (Auto) (0.0-0.4) % Neut % (Auto) (45-73) % Lymph % (Auto) (20-40) % [place] % (Auto) (2-11) % Eos % (Auto) (0-4) % Baso % (Auto) (0-2) % Lymph # (Auto) (1.2-4.9) X10*3/uL [place] # (Auto) (0.1-1.2) X10*3/uL Eos # (Auto) (0.0-0.4) X10*3/uL Baso # (Auto) (0.0-0.2) X10*3/uL Abs Immat Gran (auto) (0.00-0.03) X10*3/uL Absolute Neuts (auto) (2.0-8.3) x10*3/uL Absolute Nucleated RBC (0.0-0.012) X10*3/uL Nucleated RBC % (auto) (0.0-0.2) /100WBC D-Dimer High Sensitivty 176 NG/ML Sodium (135-145) mmol/L Potassium (3.3-5.1) mmol/L Chloride (96-108) mmol/L Carbon Dioxide (22-29) mmol/L Anion Gap (12-20) BUN (9-16) mg/dL Creatinine (0.5-1.4) mg/dL Estim Creat Clear Calc Estimated GFR Random Glucose (60-115) mg/dL Calcium (8.4-10.2) mg/dL Total Bilirubin (0.0-1.0) mg/dL Direct Bilirubin (0.0-0.5) mg/dL AST (5-31) U/L ALT (0-31) U/L Alkaline Phosphatase (39-117) U/L Troponin I High Sens < 2.7 (<3.5-17.0) ng/L Total Protein (6.5-8.0) g/dL Albumin (3.5-5.0) g/dL Ethyl Alcohol mg/dL Independent Interpretation I performed an independent interpretation of an: EKG Interpretation: Rate: 80 Rhythm:? Normal sinus rhythm [place]:? Normal Normal P waves.? Normal ARIADNA.?? Normal QRS complex.?? ST T wave :??No ST elevation, no ST depression prior studies:? None available for review The study has been interpreted contemporaneously by me. Independent Historian Clinical information obtained from an independent historian. History obtained from or confirmed by: Other (Patient's sister is present at bedside who confirms history.) Chronic Conditions Patient?s care impacted by: Diabetes and Hypertension Discharge Plan Discharge Clinical Impression: Syncope Patient Disposition: Home, Self-Care Instructions: Syncope (ED) Additional Instructions: As discussed, your blood work today was overall normal. Please refrain from drinking alcohol and smoking marijuana as this is most likely what contributed to this episode. Contact your primary care provider to arrange for a follow-up visit in 1-3 days. You may return back to emergency department any new or worsening symptoms or concerns. This includes but is not limited to persistent dizziness, lightheadedness, passing out episodes, chest pain, shortness of breath, difficulty breathing, numbness tingling of your arms or legs, weakness. Prescriptions: No Action tizanidine 4 mg tablet 4 mg PO Q8H PRN (Reason: for muscle spasm) 30 Days Qty: 90 0RF hydrocortisone [Preparation H Hydrocortisone] 1 % cream 1 appl topical BID-QID PRN (Reason: skin irritation) 90 Days Qty: 453.6 1RF lidocaine [Lidoderm] 5 % adhesive patch,medicated 1 patch topical DAILY Qty: 15 0RF Rx Instructions: leave on most painful area for up to 12 hrs ibuprofen 600 mg tablet 600 mg PO Q8H PRN (Reason: pain) Qty: 20 0RF Flovent HFA 110 mcg/actuation HFA aerosol inhaler 2 puff inhalation BID loratadine 10 mg tablet 10 mg PO DAILY PRN risperidone 1 mg tablet 1 mg PO BEDTIME sertraline 100 mg tablet 100 mg PO DAILY lisinopril 20 mg tablet 20 mg PO DAILY cholecalciferol (vitamin D3) 50 mcg (2,000 unit) tablet 50 mcg PO DAILY omeprazole 20 mg capsule,delayed release(DR/EC) PO QAM metformin 500 mg tablet 500 mg PO albuterol sulfate [ProAir HFA] 90 mcg/actuation HFA aerosol inhaler 2 puff PO Q4-6H PRN fluticasone propionate 50 mcg/actuation spray,suspension 2 spray intranasal DAILY acetaminophen 500 mg tablet 1,000 mg PO Q8H PRN (Reason: for pain) Qty: 180 3RF Referrals: [facility] [Primary Care Provider] - Interventions: ED Discharge Assessment Last Done: 08/13/22 00:08 Discharge Date/Time: 08/13/22 00:09
[2022-08-12 20:32] VITALS: BP 116/59; PULSE 78; RESP 20; TEMP 36.7; O2SAT 95
[2022-08-12 20:34] VITALS: BP 119/54; PULSE 86
[2022-08-12 20:36] VITALS: BP 108/54; PULSE 98
[2022-08-12 22:22] LABS: Troponin-I High Sensitivity < 2.7 ng/L (<3.5-17.0)
[2022-08-12 22:27] LABS: D Dimer High Sensitivity 176 NG/ML
[2022-08-12 23:53] VITALS: BP 122/64; PULSE 61; RESP 12; TEMP 36.5; O2SAT 98
== END 2022-08-13 00:09 | disposition home or self-care (01) ==
PROVIDERS: Nurse Practitioner Family; Student in an Organized Health Care Education/Training Program; Emergency Provider Emergency Medicine
DX: R55 Syncope and collapse (principal); I10 Essential (primary) hypertension; E11.9 Type 2 diabetes mellitus without complications; F12.90 Cannabis use, unspecified, uncomplicated; Z79.84 Long term (current) use of oral hypoglycemic drugs; Z79.899 Other long term (current) drug therapy
CPT/HCPCS: 36415; 80048; 80076; 80307; 84484; 85025; 85379; 93005; 99283; 99284

== ENCOUNTER 2022-10-25 14:50 | Outpatient (REF) | payer MEDICAID, SELFPAY ==
--- NOTE | ~2022-10-25 | XR_ITS ---
EXAMINATION: XR FOOT, RIGHT CLINICAL INFORMATION: Pain for years, calcaneal spur. COMPARISON: None available. TECHNIQUE: AP, lateral, and oblique views of the right foot. FINDINGS: No fracture or dislocation. Sclerosis and joint space narrowing first carpometacarpal joint. Proximal foot dorsal soft tissues swelling with tarsal spurring. Calcaneal spurring. Soft tissue prominence and calcification in the region of the Achilles tendon. XR/XR foot RT min 3V IMPRESSION: Calcaneal spurring. Achilles tendinopathy.
== END 2022-10-25 14:51 | disposition home or self-care (01) ==
LOC: HO.HHCX 14:50
PROVIDERS: Visit Provider Student in an Organized Health Care Education/Training Program
DX: M77.31 Calcaneal spur, right foot (principal)
CPT/HCPCS: 73630

== ENCOUNTER 2023-07-07 11:26 | Outpatient (REF) | payer MEDICAID, SELFPAY ==
[2023-07-07 13:45] LABS: Alanine Aminotransferase 23 U/L (0-31); Alkaline Phosphatase 72 U/L (39-117); Anion Gap 9 (12-20); Aspartate Amino Transferase 24 U/L (5-31); Bilirubin Total 0.3 mg/dL (0.0-1.0); Blood Urea Nitrogen 15 mg/dL (9-16); Calcium 8.9 mg/dL (8.4-10.2); Carbon Dioxide 27 mmol/L (22-29); Chloride 108 mmol/L (96-108); Cholesterol 127 mg/dL (<200); Estimated Glomerular Filt Rate > 60; Glucose Random 87 mg/dL (60-115); HDL Cholesterol 48 mg/dL (>40); LDL Cholesterol Calculated 57 mg/dL (<100); Potassium 4.1 mmol/L (3.3-5.1); Sodium 140 mmol/L (135-145); Total Protein 6.7 g/dL (6.5-8.0); Triglycerides 111 mg/dL (<150)
[2023-07-07 13:52] LABS: Estimated Average Glucose 114 mg/dL; Hemoglobin A1c % 5.6 % (<6.0)
== END 2023-07-07 11:27 | disposition home or self-care (01) ==
LOC: HO.HHCL 11:26
PROVIDERS: Visit Provider General Practice
DX: I10 Essential (primary) hypertension (principal)
CPT/HCPCS: 36415; 80053; 80061; 83036

== ENCOUNTER 2023-11-08 15:30 | Outpatient (REF) | payer MEDICAID, SELFPAY ==
[2023-11-08 16:24] LABS: MANUAL DIFF FLAG NO
[2023-11-08 16:29] LABS: Basophils Percent Auto 0.4 % (0-2); Eosinophils Absolute Auto 0.1 X10*3/uL (0.0-0.4); Eosinophils Percent Auto 0.9 % (0-4); Hematocrit 38.7 % (37.0-47.0); Hemoglobin 12.3 g/dl (12.0-16.0); Imm Gran Abs Auto 0.02 X10*3/uL (0.00-0.03); Imm Gran Pct Auto 0.3 % (0.0-0.4); Lymphocytes Absolute Auto 1.5 X10*3/uL (1.2-4.9); Lymphocytes Percent Auto 22.8 % (20-40); Mean Corpuscular HGB Conc 31.8 g/dl (31.0-35.0); Mean Corpuscular Hemoglobin 26.7 pg (27.0-33.0); Mean Corpuscular Volume 84.1 fL (80.0-98.0); Mean Platelet Volume 11.1 fL (9.4-12.3); Monocytes Absolute Auto 0.6 X10*3/uL (0.1-1.2); Monocytes Percent Auto 8.6 % (2-11); Neutrophils Absolute Auto 4.5 x10*3/uL (2.0-8.3); Platelet Count 192 X10*3/uL (160-400); Red Cell Distribution Width 13.8 % (11.0-16.0); White Blood Count 6.7 X10*3/uL (4.8-10.8)
[2023-11-08 16:47] LABS: Alanine Aminotransferase 21 U/L (0-31); Albumin Level 4.4 g/dL (3.5-5.0); Alkaline Phosphatase 74 U/L (39-117); Anion Gap 10 (12-20); Aspartate Amino Transferase 23 U/L (5-31); Bilirubin Total 0.3 mg/dL (0.0-1.0); Blood Urea Nitrogen 14 mg/dL (9-16); Calcium 9.8 mg/dL (8.4-10.2); Carbon Dioxide 26 mmol/L (22-29); Chloride 108 mmol/L (96-108); Estimated Glomerular Filt Rate > 60; Glucose Random 104 mg/dL (60-115); Potassium 3.9 mmol/L (3.3-5.1); Sodium 140 mmol/L (135-145); Total Protein 7.4 g/dL (6.5-8.0)
[2023-11-08 17:31] LABS: Folate 14.3 ng/mL (> or = 4.0); Vitamin B12 489 pg/mL (200-900)
[2023-11-09 05:41] LABS: HIV AB/AG Nonreactive (Nonreactive); HIV Num 1 0.05 S/CO (0.00-0.99); ~HepC Num1 1.86 S/CO (0.00-0.79); ~Hepatitis C Antibody Reactive (Nonreactive)
[2023-11-10 07:28] LABS: RPR Rapid Plasma Reagin NON-REACTIVE (NON-REACTIVE)
[2023-11-13 21:07] LABS: HCV Log PCR <1.18 NOT DETECTED Log IU/mL (NOT DETECTED); HepC Viral Load <15 NOT DETECTED IU/mL (NOT DETECTED)
== END 2023-11-08 15:31 | disposition home or self-care (01) ==
LOC: HO.HHCL 15:30
PROVIDERS: Visit Provider General Practice
DX: I10 Essential (primary) hypertension (principal); Z11.3 Encounter for screening for infections with a predominantly sexual mode of transmission; R20.2 Paresthesia of skin
CPT/HCPCS: 36415; 80053; 82607; 82746; 85025; 86592; 86803; 87389; 87522

== ENCOUNTER 2023-12-01 11:52 | Outpatient (REF) | payer MEDICAID, SELFPAY | END 2023-12-01 11:53 | disposition home or self-care (01) | LOC: HO.SH 11:52 | PROVIDERS: Visit Provider General Practice | DX: Z01.118 Encounter for examination of ears and hearing with other abnormal findings (principal); H90.6 Mixed conductive and sensorineural hearing loss, bilateral | CPT/HCPCS: 92557; 92567 ==

== ENCOUNTER 2023-12-01 16:06 | Outpatient (REF) | payer MEDICAID, SELFPAY | END 2023-12-01 16:07 | disposition home or self-care (01) | LOC: HO.HOSX 16:06 | PROVIDERS: Visit Provider Physician Assistant | DX: Z13.89 Encounter for screening for other disorder (principal) ==

== ENCOUNTER 2023-12-27 11:25 | Outpatient (REF) | payer MEDICAID, SELFPAY | END 2023-12-27 11:26 | disposition home or self-care (01) | LOC: HO.HOSX 11:25 | PROVIDERS: Visit Provider Physician Assistant | DX: M25.551 Pain in right hip (principal); M53.3 Sacrococcygeal disorders, not elsewhere classified; M70.61 Trochanteric bursitis, right hip; M70.62 Trochanteric bursitis, left hip | CPT/HCPCS: 73502; 99212 ==

== ENCOUNTER 2023-12-27 13:52 | Outpatient (AMB) | payer MEDICAID, SELFPAY ==
--- NOTE | 2023-12-27 14:00 | MHC.OFFVIS ---
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 Patient reports her pain has been present for about a year, with her right side being the worse. Patient received a hip injection through pain management with about 3 month relief. Currently she has intermittent pain. States that she has to walk to places and this increases her pain. Her pain is located at the post posterior aspect of hip as well as tingling sensation. RIGHT DIAGNOSTIC SIJ INJECTION 06/30/22 Help Desk Rep Required: Yes Help Desk Rep Services: Help Desk Rep Present Help Desk Rep Name: mauro [id number] Allergies No Known Allergies Allergy (Verified 12/27/23 14:07) Medication List - Last Reconciled 12/27/23 by Paras Dickens PA-C acetaminophen 1,000 mg (2 x 500 mg) PO Q8H PRN albuterol sulfate 90 mcg/actuation (ProAir HFA) 2 puffs PO Q4-6H PRN cholecalciferol (vitamin D3) 50 mcg PO DAILY fluticasone propionate 50 mcg/actuation 2 sprays intranasal DAILY fluticasone propionate 110 mcg/actuation (Flovent HFA) 2 puffs inhalation BID hydrocortisone 1% (Preparation H Hydrocortisone) 1 appl topical BID-QID PRN 90 days ibuprofen 600 mg PO Q8H PRN lidocaine 5% (Lidoderm) 1 patch topical DAILY lisinopril 20 mg PO DAILY loratadine 10 mg PO DAILY PRN metformin 500 mg PO omeprazole mg PO QAM risperidone 1 mg PO BEDTIME sertraline 100 mg PO DAILY tizanidine 4 mg PO Q8H PRN 30 days HPI HPI 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 She reports the pain is more so on the right side than the left side of her hip. She is unable to sleep because of the pain and has to change position. She has received injection to the back from the pain management without any relief. She denies getting physical therapy for the hips or back. ON LICENSE OF [facility] Medical History Anxiety Asthma Colon cancer screening Diabetes GERD (gastroesophageal reflux disease) HTN (hypertension) Hx of hemorrhoids Seasonal allergies Surgical History Hx of colonoscopy Family History Mother High blood pressure Diabetes Father High blood pressure Diabetes Social History Alcohol intake: current Alcohol intake frequency: does not drink Alcohol type: beer Patient Tobacco Use Status: Never used Tobacco Substance Use Type: Marijuana Review of Systems Const All systems reviewed & are unremarkable except as noted in HPI and below Physical Exam Extrem Other: Bilateral hip: Normal to inspection. No pain with ROM of the hip. Pain along the greater trochanter. No pain with hip flexion or abduction. Positive tenderness along the SI joint, Positive SLR. NVI. Results Reviewed Results Reviewed: Xrays were obtained in the office today and personally reviewed by me of bilat hip show mild oa Assessment & Plan Assessment & Plan (1) Sacroiliac joint dysfunction of both sides: Code(s): M53.3 - Sacrococcygeal disorders, not elsewhere classified Category: Medical (2) Greater trochanteric bursitis of both hips: Code(s): M70.61 - Trochanteric bursitis, right hip; M70.62 - Trochanteric bursitis, left hip Category: Medical Plan A referral to physical therapy was placed for her low back pain and bilat hip. If she continues to have pain with activities s/p therapy, Follow up with Dr. Caro for follow up on injections Scribed for Paras Dickens PA-C, by Pablo Diamond medical assistant supervisor, on 12/27/2023 at 14:00 PM EST. I, Paras Dickens PA-C, have personally reviewed and agree with the information entered by the scribe. Orders: Orders XR hip LT min 2V Today M25.552 - Pain in left hip XR hip RT min 2V Today M25.551 - Pain in right hip PT Evaluation and Treatment Today M53.3 - Sacrococcygeal disorders, not elsewhere classified, M70.61 - Trochanteric bursitis, right hip, M70.62 - Trochanteric bursitis, left hip Coding Level of Care Code Est Pt Level 3 (51138) Complex EM visit Add On G2211 Diagnoses Sacroiliac joint dysfunction of both sides M53.3 Greater trochanteric bursitis of both hips M70.61; M70.62
== END 2023-12-27 14:53 | disposition home or self-care (01) ==
PROVIDERS: Visit Provider Physician Assistant
DX: M53.3 Sacrococcygeal disorders, not elsewhere classified (principal); M70.61 Trochanteric bursitis, right hip; M70.62 Trochanteric bursitis, left hip
CPT/HCPCS: 99213

== ENCOUNTER 2024-03-19 | Outpatient (REF) | payer MEDICAID, SELFPAY ==
[2024-03-20 11:48] LABS: Appearance Urine Clear; Color Urine Yellow; Glucose Urine UA Negative (Negative); Leukocyte Esterase Urine Negative (Negative); Nitrite Urine Negative (Negative); PH 6.5 (5.0-9.0); Specific Gravity - Urine 1.025 (1.005-1.025); Urine Blood Negative (Negative); Urine Ketones Negative (Negative); Urine Protein Negative (Neg-Trace)
[2024-03-20 11:51] LABS: Bacteria Urine None Seen (None Seen); Hyaline Casts Urine 0-2 /LPF (0-2); RBC Urine 0-2 /HPF (0-2); Squamous Epithelial Cell Urine 0-2 /HPF (0-2); WBC Urine 0-5 /HPF (0-5)
--- OUTSIDE RECORDS SUMMARY | 2024-03-20 13:12 | XMS_ITS | Encounter Summary ---
Author Organization [employer] Address [address] [facility] [address] [place] [address] Care Team Providers Care Coin Machine Assembler Name Role Phone Sanaz Pope MD Primary Care Provider [phone] Encounter Details Date Type Department Care Team (Late st Contact Info) Description 03/07/2023 Orders Only [facility] MEDICINE [address], [place] [id number] Sanaz Pope MD [address] [place], [place] [phone] Primary osteoarthritis involving multiple joints (Primary Dx) Social History Tobacco Use Types Packs/Day Years Used Date Smoking Tobacco: Never Smokeless Tobacco: Never Alcohol Use Standard Drinks/Week Comments Never 0 (1 standard drink = 0.6 oz pur e alcohol) Housing Stability Answer Date Recorded What is your housing situation today? I have alverto faustin 12/01/[address] you li ve. Do you have problems with any of the following? None of the above 12/01/2022 Food Insecurity Answer Date Recorded Within the past 12 months, y ou worried that your food would run out before you got money to buy more: Never True 12/01/2022 Within the past 12 months,th e food you bought just didn't last and you didn't have enough money to get more: Never True Transportation Answer Date Recorded In the past 12 months, has l ack of transportation kept you from medical appts, meetings, work or from getting things needed for daily living? No 12/01/2022 Utilities Answer Date Recorded In the past 12 months, has t he electric, gas, oil or water company threatened to shut off services in your home? No 12/01/2022 Depression Answer Date Recorded Patient Health Questionnaire-2 Score 2 02/08/2022 Comments Unknown Sex and Gender Information Value Date Recorded Sex Assigned at Female 12/13/2021 10:15 AM EDT Legal Sex Female 10:15 AM EDT Gender Identity Female 12/13/2021 10:15 AM EDT Sexual Orientation Straight 12/13/2021 10 :15 AM EDT documented as of this encounter Plan of Treatment Upcoming Encounters Date Type Department Care Team (Late st Contact Info) Description 03/21/2024 1:00 PM EST Office Visit [facility] WALK-IN CENTER [address] [place] [address] 04/05/2024 10:30 AM EST Office Visit [facility] OPTOMETRY [address] [place] [address] Lucien, Anamika, OD [address] [place] [address] documented as of this encounter Visit Diagnoses Diagnosis Primary osteoarthritis involving multiple joints- Primary documented in this encounter Care Teams Coin Machine Assembler Relationship Specialty Start Date End Date Sanaz Pope MD [address] [place] [address] PCP - General Family Medicine 10/13/21 documented as of this encounter
--- OUTSIDE RECORDS SUMMARY | 2024-03-20 13:12 | XMS_ITS | Encounter Summary ---
Author Organization [employer] Address [address] [facility] 7t [place] [address] Care Team Providers Care Dental Hygienist Name Role Phone Sanaz Pope MD Primary Care Provider [phone] Encounter Details Date Type Department Care Team (Late Contact Info) Description 02/09/2022 Orders Only [facility] [address] [place] [address] [phone] Sanaz Pope MD [address] [place], [place] [phone] Hyperlipidemia, unspecified hyperlipidemia type (Primary Dx) Social History Tobacco Use Types Packs/Day Years Used Date Smoking Tobacco: Never Smokeless Tobacco: Never Alcohol Use Standard Drinks/Week Comments Never 0 (1 standard drink = 0.6 oz pur e alcohol) Depression Answer Date Recorded Patient Health Questionnaire-2 Score 2 02/08/2022 Comments Unknown Sex and Gender Information Value Date Recorded Sex Assigned at Female 12/13/2021 10:15 AM EDT Legal Sex Female 10:15 AM EDT Gender Identity Female 12/13/2021 10:15 AM EDT Sexual Orientation Straight 12/13/2021 10 :15 AM EDT COVID-19 Exposure Response Date Recorded In the last 10 days, have yo u been in contact with someone who was confirmed or suspected to have Coronavirus/COVID-19? No / Unsure 02/08/2022 11:01 AM EST documented as of this encounter Plan of Treatment Upcoming Encounters Date Type Department Care Team ([facility] Contact Info) Description 03/21/2024 1:00 PM EST Office Visit [facility] [address] [place], [place] [phone] 04/05/2024 10:30 AM EST Office Visit [facility] [address] [place] [address] Anamika Mcgraw, OD [address] [place] [address] documented as of this encounter Procedures Procedure Name Priority Date/Time Associated Diagnosis Comments D DIMER HIGH SENSITIVITY Routine 08/12/2022 9:52 PM EDT Hyperlipidemia, unspecified hyperlipidemia type HIGH SENSITIVITY TROPONIN I Routine 08/12/2022 9:52 PM EDT Hyperlipidemia, unspecified hyperlipidemia type HIGH SENSITIVITY TROPONIN I Routine 08/12/2022 6:56 PM EDT Hyperlipidemia, unspecified hyperlipidemia type ETHANOL Routine 08/12/2022 6:56 PM EDT Hyperlipidemia, unspecified hyperlipidemia type CBC WITH AUTO DIFFERENTIAL Routine 08/12/2022 6:56 PM EDT Hyperlipidemia, unspecified hyperlipidemia type HEPATIC FUNCTION PANEL Routine 08/12/2022 6:56 PM EDT Hyperlipidemia, unspecified hyperlipidemia type BASIC METABOLIC PANEL Routine 08/12/2022 6:56 PM EDT Hyperlipidemia, unspecified hyperlipidemia type documented in this encounter Results * D Dimer High Sensitivity (08/12/2022 9:52 PM EDT) Pathologist [facility] D Dimer High Sensitivity 176 NG/ML [facility] Comment:D-DIMER HS REFERENCE RANGENote: Our assay reports D-Dimer Units (D- DU).The cut-off value for venous thromboembolic (VTE) disease is230 ng/mL. This value has a very high negative predictivevalue when the patient has a low to moderate clinicalprobability of VTE.The upper limit of normal is 243 ng/mL. 08/12/2022 9:52 PM EDT 08/12/2022 9:57 PM EDT [facility] External Provider LAB BLO OD ORDERABLES Final Result Performing Organization Address [facility] Co de Phone Number [facility] [address] [place] [phone] * High Sensitivity Troponin I (08/12/2022 9:52 PM EDT) TROPONIN I HIGH SENSITIVITY <2.7 <3.5 - 17.0 ng/L [facility] Comment:The Mcgarry high sens itivity Troponin-I results should beused in conjunction with other diagnostic information suchas ECG, clinical observations and information, and patientsymptoms to aid in the diagnosis of [place]. 08/12/2022 9:52 PM EDT 08/12/2022 9:57 PM EDT [facility] External Provider LAB BLO OD ORDERABLES Final Result Performing Organization Address [facility] Phone Number [facility] [address] [place] [phone] * High Sensitivity Troponin I (08/12/2022 6:56 PM EDT) [facility] Signature TROPONIN I HIGH SENSITIVITY <2.7 <3.5 - 17.0 ng/L [facility] Comment:The Mcgarry high sens itivity Troponin-I results should beused in conjunction with other diagnostic information suchas ECG, clinical observations and information, and patientsymptoms to aid in the diagnosis of FL. 08/12/2022 6:56 PM EDT 08/12/2022 6:59 PM EDT [facility] External Provider LAB BLO OD ORDERABLES Final Result Performing Organization Address [facility] Co de Phone Number [facility] [address] [place] [phone] * Hepatic Function Panel (08/12/2022 6:56 PM EDT) Bilirubin, Total 0.3 0.0 - 1.0 mg/dL [facility] Bilirubin, Direct 0.1 0.0 - 0.5 mg/dL [facility] Aspartate Amino Transferase 20 5 - 31 U/L [facility] Alanine Aminotransferase 15 0 - 31 U/L [facility] Total Protein 6.7 6.5 - 8.0 g/dL [facility] Albumin Level 4.0 3.5 - 5.0 g/dL [facility] Alkaline Phosphatase 66 39 - 117 U/L [facility] 08/12/2022 6:56 PM EDT 08/12/2022 6:59 PM EDT us [facility] External Provider LAB BLO OD ORDERABLES Final Result [facility] [address] [place], [place] [phone] * (ABNORMAL) CBC auto differential (08/12/2022 6:56 PM EDT) White Blood Count 5.9 4.8 - 10.8 X10*3/uL [facility] Red Blood Count 4.20 4.20 - 5.50 X10*6/uL [facility] Hemoglobin 11.2(L) 12.0 - 16.0 g/dl [facility] Hematocrit 35.1(L) 37.0 - 47.0 % [facility] Mean Corpuscular Volume 83.6 80.0 - 98.0 fL [facility] Mean Corpuscular Hemoglobin 26.7(L) 27.0 - 33.0 pg [facility] Mean Corpuscular HGB Conc 31.9 31.0 - 35.0 g/dl [facility] Red Cell Distribution Width 14.6 11.0 - 16.0 % [facility] Platelet Count 163 160 - 400 X10*3/uL [facility] Mean Platelet Volume 11.4 9.4 - 12.3 fL [facility] Neutrophils Percent Auto 71.6 45 - 73 % [facility] Imm Gran Pct Auto 0.2 0.0 - 0.4 % [facility] Lymphocytes Percent Auto 20.7 20 - 40 % [facility] Monocytes Percent Auto 6.1 2 - 11 % [facility] Eosinophils Percent Auto 0.9 0 - 4 % [facility] Basophils Percent Auto 0.5 0 - 2 % [facility] NRBC Pct Auto 0.0 0.0 - 0.2 /100WBC [facility] Neutrophils Absolute Auto 4.2 2.0 - 8.3 x10*3/uL [facility] Imm Gran Abs Auto 0.01 0.00 - 0.03 X10*3/uL [facility] Lymphocytes Absolute Auto 1.2 1.2 - 4.9 X10*3/uL [facility] Monocytes Absolute Auto 0.4 0.1 - 1.2 X10*3/uL [facility] Eosinophils Absolute Auto 0.1 0.0 - 0.4 X10*3/uL [facility] Basophils Absolute Auto 0.0 0.0 - 0.2 X10*3/uL [facility] NRBC Abs Auto 0.000 0.0 - 0.012 X10*3/uL [facility] 08/12/2022 6:56 PM EDT 08/12/2022 7:29 PM EDT us [facility] External Provider LAB BLO OD ORDERABLES Final Result [facility] [address] [place] [phone] * Ethanol (08/12/2022 6:56 PM EDT) ETHANOL (MG/DL) IN SER/PLAS 21 mg/dL [facility] Comment:Serum/plasma ethanol results are to be used formedical/treatment purposes only. 08/12/2022 6:56 PM EDT 08/12/2022 6:59 PM EDT [facility] External Provider LAB BLO OD ORDERABLES Final Result [facility] [address] [place] [phone] * (ABNORMAL) Basic Metabolic Panel (08/12/2022 6:56 PM EDT) Sodium 141 135 - 145 mmol/L [facility] Potassium 4.1 3.3 - 5.1 mmol/L [facility] Chloride 107 96 - 108 mmol/L [facility] Carbon Dioxide 25 22 - 29 mmol/L [facility] Anion Gap 13 12 - 20 [facility] Urea Nitrogen (BUN) 17(H) 9 - 16 mg/dL [facility] Creatinine, Serum 0.66 0.5 - 1.4 mg/dL [facility] Creatinine Clr Calc Pharmacy 73.8 [facility] Comment:Provided height and weight: 147.32 cm,72.575 kg.eGFR (calculated from the MDRD study equation) and eCrCl(calculated from the Cockcroft-Gault equation) are based ondifferent parameters and may not yield comparable results.If eCrCl result is absurd, please check patient'sheight/weight. Estimated Glomerular Filt Rate >60 [facility] Comment:NOTE: For -Am erican individuals, multiply the result by 1.210.Chronic Kidney Disease: Estimated GFR < 60 mL/min/[id number] Kidney Disease: Estimated GFR < 15 mL/min/1.73m2 Glucose 132(H) 60 - 115 mg/dL [facility] Calcium 9.8 8.4 - 10.2 mg/dL [facility] 08/12/2022 6:56 PM EDT 08/12/2022 6:59 PM EDT [facility] External Provider LAB BLO OD ORDERABLES Final Result [facility] [address] [place] [phone] documented in this encounter Visit Diagnoses Diagnosis Hyperlipidemia, unspecified hyperlipidemia type- Primary documented in this encounter Care Teams Dental Hygienist Relationship Specialty Start Date End Date Sanaz Pope MD [address] [place] [address] PCP - General Family Medicine 10/13/21 documented as of this encounter
--- OUTSIDE RECORDS SUMMARY | 2024-03-20 13:12 | XMS_ITS | Encounter Summary ---
Author Organization [facility] [facility] Address [address] [facility] 7t [place] [address] Care Team Providers Care Plastics Scientist Name Role Phone Sanaz Pope MD Primary Care Provider [phone] Reason for Referral * Consultation (Routine) - Closed Specialty Diagnoses / Procedures Referred By Contac t Referred To Contact Otolaryngology Diagnoses Mixed conductive and sensorineural hearing loss of both ears Sanaz Pope MD [address] [place] [address] Phone: tel: fax: [facility] [address] Phone: tel: fax: Referral ID Status Reason Start Date Expiration Date V isits Requested Visits Authorized [id number] Closed Specialty Services Required 01/29/2024 01/28/2025 6 6 Encounter Details Date Type Department Care Team (Late st Contact Info) Description 01/21/2024 Orders Only [facility] [address] [place], [place] [phone] Sanaz Pope MD [address] [place], [place] [phone] Mixed conductive and sensorineural hearing loss of both ears (Primary Dx) Social History Tobacco Use Types Packs/Day Years Used Date Smoking Tobacco: Never Smokeless Tobacco: Never Alcohol Use Standard Drinks/Week Comments Never 0 (1 standard drink = 0.6 oz pur e alcohol) Depression Answer Date Recorded Patient Health Questionnaire-9 Score 11 07/07/2023 Patient Health Questionnaire-9 Score 11 07/07/2023 Last PHQ-9: Questionnaire Data Not on file 0 07/07/2023 Housing Stability Answer Date Recorded What is your housing situation today? I have alverto faustin 11/08/[address] you li ve. Do you have problems with any of the following? None of the above 11/08/2023 Food Insecurity Answer Date Recorded Within the past 12 months, y ou worried that your food would run out before you got money to buy more: Sometimes True 2023 Within the past 12 months,th e food you bought just didn't last and you didn't have enough money to get more: Sometimes True 11/08/2023 Transportation Answer Date Recorded In the past 12 months, has l ack of transportation kept you from medical appts, meetings, work or from getting things needed for daily living? No 11/08/2023 Utilities Answer Date Recorded In the past 12 months, has t he electric, gas, oil or water company threatened to shut off services in your home? No 11/08/2023 Depression Answer Date Recorded Patient Health Questionnaire-2 Score 6 07/07/2023 Internet Access Answer Date Recorded Internet Access Q1 Yes 11/08/2023 Internet Access Q2 Not on file 11/08/2023 Comments Unknown Sex and Gender Information Value [...] Description 03/21/2024 1:00 PM EST Office Visit [facility] [address] [place], [place] [phone] 04/05/2024 10:30 AM EST Office Visit [facility] [address] [place] [address] Lucien, Anamika, OD [address] [place] [address] Scheduled Referrals Name Type Priority Associated Diagnoses Orde r Schedule Referral to ENT Outpatient Referral Routine Mixed conductive and sensorineural hearing loss of both ears Expected: 01/21/2024 (Approximate), Expires: 01/20/2025 documented as of this encounter Visit Diagnoses Diagnosis Mixed conductive and sensorineural hearing loss of both ears- Primary documented in this encounter Additional Health Concerns Assessment Noted Time PHQ-9 Depression Total Score: 11 024 11:56 AM EDT documented as of this encounter Care Teams Plastics Scientist Relationship Specialty Start Date End Date Sanaz Pope MD [address] [place] [phone] PCP - General Family Medicine 10/13/21 documented as of this encounter
--- OUTSIDE RECORDS SUMMARY | 2024-03-20 13:12 | XMS_ITS | Encounter Summary ---
Author Organization [employer] Address [address] [facility] 7t [place] [address] Care Team Providers Care Blackjack Pit Boss Name Role Phone Sanaz Pope MD Primary Care Provider [phone] Encounter Details Date Type Department Care Team (Late Contact Info) Description 06/29/2022 Telephone [facility] [address] [place], [place] [phone] Nimco Lopez RN Social History Tobacco Use Types Packs/Day Years [...] suspected to have Coronavirus/COVID-19? No / Unsure 06/14/2022 10:19 AM EDT documented as of this encounter Plan of Treatment Upcoming Encounters Date Type Department Care Team ([facility] Contact Info) Description 03/21/2024 1:00 PM EST Office Visit [facility] [address] [place], [place] [phone] 04/05/2024 10:30 AM EST Office Visit [facility] [address] [place], [place] [phone] Anamika Mcgraw, OD [address] [place] [address] documented as of this encounter Visit Diagnoses Not on filedocumented in this encounter Care Teams Blackjack Pit Boss Relationship Specialty Start Date End Date Sanza Pope MD [address] [place] [address] PCP - General Family Medicine 10/13/21 documented as of this encounter
--- OUTSIDE RECORDS SUMMARY | 2024-03-20 13:12 | XMS_ITS | Encounter Summary ---
Author Organization [employer] Address [address] [facility] 7t [place] [address] Care Team Providers Care Correction[facility] Facility Psychiatrist Name Role Phone Sanaz Pope MD Primary Care Provider [phone] Encounter Details Date Type Department Care Team ([facility] st Contact Info) Description 03/07/2023 Orders Only [facility] [address] [place], [place] [phone] Sanaz Pope MD [address] [place], [place] [phone] Social History Tobacco Use Types Packs/Day Years Used Date Smoking Tobacco: Never Smokeless Tobacco: Never Alcohol Use Standard Drinks/Week Comments Never 0 (1 standard drink = 0.6 oz pur e alcohol) Housing Stability Answer Date Recorded What is your housing situation today? I have alvertoyoung faustin 12/01/[address] you [...] Description 03/21/2024 1:00 PM EST Office Visit [facility] [address] [place] [address] 04/05/2024 10:30 AM EST Office Visit [facility] [address] [place] [address] Anamika Mcgraw, OD [address] [place] [address] documented as of this encounter Visit Diagnoses Not on filedocumented in this encounter Care Teams [facility] Psychiatrist Relationship Specialty Start Date End Date Sanaz Pope MD [address] [place] [address] PCP - General Family Medicine 10/13/21 documented as of this encounter
--- OUTSIDE RECORDS SUMMARY | 2024-03-20 13:12 | XMS_ITS | Encounter Summary ---
Author Organization [employer] Address [address] [facility] 7[address] [place] [address] Care Team Providers Care Cloth Seconds Sorter Name Role Phone Sanaz Pope MD Primary Care Provider [phone] Reason for Visit * Reason Comments Pelvic Pain Encounter Details Date Type Department Care Team ([facility] st Contact Info) Description 03/19/2024 5:40 PM EST Office Visit [facility] [address] [place], [place] [phone] Velma Yung MD [address] [place], [place] [phone] Pelvic pain (Primary Dx); PID (acute pelvic inflammatory disease) Social History Tobacco Use Types Packs/Day Years Used Date Smoking Tobacco: Never Passive Smoke Exposure: Never Smokeless Tobacco: Never Tobacco Cessation:Counseling Given: Not Answered Alcohol Use Standard Drinks/Week Comments Never 0 [...] AM EDT documented as of this encounter Last Filed Vital Signs Vital Sign Reading Time Taken Comments Blood Pressure 136/76 03/19/2024 5:33 PM EST Pulse 74 03/19/2024 5:33 PM EST Temperature 37.2 ??C (98.9 ??F) 03/19/2024 5:33 PM ES T Respiratory Rate 18 03/19/2024 5:33 PM EST Oxygen Saturation 96% 03/19/2024 5:33 PM EST Inhaled Oxygen Concentration - - Weight 70.5 kg (155 lb 8 oz) 03/19/2024 5:33 PM EST Height 147.3 cm (4' 10 ) 03/19/2024 5:33 PM EST Body Mass Index 32.5 03/19/2024 5:33 PM EST documented in this encounter Progress Notes * Velma Yung MD - 03/19/2024 5:40 PM EST Subjective Patient ID: Mirtha Menchaca is a 64 y.o. female who presents to walk in clinic for Pelvic Pain. PT reports 5 days of increasing lower pelvic pain with some dysuria. She denies fevers or chills. Has had unprotected intercourse with one new male partner. Normal bowel movements and oral intake. Urine described as dark yellow. Pelvic Pain Associated symptoms: no fever Review of Systems Constitutional: Negative for chills and fever. Genitourinary: Positive for dysuria and pelvic pain. Negative for flank pain, genital sores, vaginal bleeding and vaginal discharge. Objective Visit Vitals BP 136/76 (BP Location: Left arm, Patient Position: Sitting, BP Cuff Size: Adult) Pulse 74 Temp 98.9 ??F (37.2 ??C) (Oral) Resp 18 Body mass index is 32.5 kg/m??. Physical Exam Constitutional: Appearance: Normal appearance. Cardiovascular: Rate and Rhythm: Normal rate and regular rhythm. Heart sounds: Normal heart sounds. Pulmonary: Effort: Pulmonary effort is normal. Breath sounds: Normal breath sounds. Abdominal: Tenderness: There is abdominal tenderness. Comments: + lower pelvic pain without localization to side. Genitourinary: Comments: + cervical motion tenderness, no obvious discharge Musculoskeletal: Cervical back: Normal range of motion and neck supple. Neurological: General: No focal deficit present. Mental Status: She is alert. Psychiatric: Behavior: Behavior normal. Problem List Items Addressed This Visit Pelvic pain - Primary Differenital includes diverticulitis, PID, UTI -treat for possible PID with: -ceftriaxone 500mg IM now -doxy bid x 14 days satarted 03/19/24 -metronidazole bid for 14 days started 03/19/24 GC chl cultures -strict ER precautions for worsening pain, fever, or other concerns -return in 48 hours for revaluation Relevant Orders POCT Urinalysis (Completed) Chlamydia/N. Gonorrhoeae RNA, TMA, Urogenitial Urinalysis, Complete, with Reflex to Culture Other Visit Diagnoses PID (acute pelvic inflammatory disease) Relevant Medications cefTRIAXone (Rocephin) vial 500 mg (Start on 03/19/2024 6:15 PM) doxycycline (Vibramycin) 100 MG capsule metroNIDAZOLE (Flagyl) 500 MG tablet No follow-ups on file. documented in this encounter Miscellaneous Notes * Assessment & Plan Note - Velma Yung MD - 03/19/2024 6:10 PM EST Associated Problem(s): Pelvic pain Differenital includes diverticulitis, PID, UTI -treat for possible PID with: -ceftriaxone 500mg IM now -doxy bid x 14 days satarted 03/19/24 -metronidazole bid for 14 days started 03/19/24 GC chl cultures -strict ER precautions for worsening pain, fever, or other concerns -return in 48 hours for revaluation documented in this encounter Plan of Treatment Upcoming Encounters Date Type Department Care Team (Late st Contact Info) Description 03/21/2024 1:00 PM EST Office Visit [facility] [address] [place] [address] 04/05/2024 10:30 AM EST Office Visit [facility] [address] [place], [place] [phone] Lucien, Anamika, OD [address] [place] [address] Scheduled Orders Name Type Priority Associated Diagnoses Orde r Schedule Chlamydia/N. Gonorrhoeae RNA, TMA, Urogenitial Microbiology Routine Pelvic pain Ordered: 03/19/2024 documented as of this encounter Procedures Procedure Name Priority Date/Time Associated Diagnosis Comments URINALYSIS, COMPLETE, WITH REFLEX TO CULTURE Routine 03/19/2024 5:53 PM EST Pelvic pain POCT URINALYSIS DIPSTICK Routine 03/19/2024 5:42 PM EST Pelvic pain documented in this encounter Results * Urinalysis, Complete, with Reflex to Culture (03/19/2024 5:53 PM EST) Color Urine Yellow [facility] Appearance Urine Clear [facility] PH 6.5 5.0 - 9.0 [facility] Glucose Urine UA Negative Negative mg/dL [facility] Urine Blood Negative Negative [facility] Specific Cardale - Urine 1.025 1.005 - 1.025 [facility] Urine Protein Negative Neg-Trace mg/dL [facility] Urine Ketones Negative Negative mg/dL [facility] Nitrite Urine Negative Negative [facility] Leukocyte Esterase Urine Negative Negative [facility] RBC Urine 0-2 0 - 2 /HPF [facility] Urine WBC 0-5 0 - 5 /HPF [facility] Urine Squamous Epithelial Cell 0-2 0 - 2 /HPF [facility] Urine Bacteria None Seen None Seen [facility] Hyaline Casts, Urine 0-2 0 - 2 /LPF [facility] Urine Urine specimen obtained by clean catch procedure / Unknown 03/19/2024 5:53 PM EST 03/20/2024 11:27 AM EST Narrative [facility] - 03/20/2024 11:51 AM EST Urine, Clean Catch Velma Yung MD LAB URINE ORDERABLES Final Result [facility] [address] [place] [phone] * POCT Urinalysis (03/19/2024 5:42 PM EST) Color, UA Light Yellow Clarity, UA Clear Glucose, UA Negative Bilirubin, UA Negative Ketones, UA Negative Spec Grav, UA 1.020 Blood, UA Negative Negative, None Detected pH, UA 7.0 Protein, UA Negative Urobilinogen, UA 1.0 Leukocytes, UA Negative Negative, Rare, Trace Nitrite, UA Negative Negative, None Detected Appearance, UA clear QC Media Lot # [id number] Lot# Expiration Date Urine 03/19/2024 5:42 PM EST Velma Yung MD POINT OF CARE TEST ENTER/E DIT ORDERABLES Final Result documented in this encounter Visit Diagnoses Diagnosis Pelvic pain- Primary PID (acute pelvic inflammatory disease) Acute parametritis and pelvic cellulitis documented in this encounter Administered Medications Inactive Administered Medications - up to 3 most recent administrations Medication Order MAR Action Action Date Dose Rate Site cefTRIAXone (Rocephin) vial 500 mg 500 mg, Intramuscular, Once, On Mon03/19/24 at 1815, For 1 dose, Suspected Indication (Select all that apply): Sexually Transmitted Infection, Type of Therapy: EmpiricIndications:PID (acute pelvic inflammatory disease) Given 03/19/2024 6:15 PM EST 500 mg Right Deltoid lidocaine (Xylocaine) 1 % injection 10 mg 10 mg (1 mL), Injection, Once, On Mon03/19/24 at 1830, For 1 doseIndications:PID (acute pelvic inflammatory disease) Given 03/19/2024 6:30 PM EST 10 mg documented in this encounter Additional Health Concerns Assessment Noted Time PHQ-9 Depression Total Score: 11 024 11:56 AM EDT documented as of this encounter Care Teams Cloth Seconds Sorter Relationship Specialty Start Date End Date Sanaz Pope MD [address] [place] [address] PCP - General Family Medicine 10/13/21 documented as of this encounter
--- OUTSIDE RECORDS SUMMARY | 2024-03-20 13:12 | XMS_ITS | Encounter Summary ---
Author Organization [employer] Address [address] [facility] [address] [place] [address] Care Team Providers Care Production Service Manager Name Role Phone Sanaz Pope MD Primary Care Provider [phone] Encounter Details Date Type Department Care Team (Late st Contact Info) Description 06/22/2023 Orders Only [facility] [address] [place], [place] [phone] ProviderAlisa MD Social History Tobacco Use Types Packs/Day Years [...] Description 03/21/2024 1:00 PM EST Office Visit [facility] [address] [place] [address] 04/05/2024 10:30 AM EST Office Visit [facility] [address] [place], [place] [phone] Lucien, Anamika, OD [address] [place] [address] documented as of this encounter Procedures Procedure Name Priority Date/Time Associated Diagnosis Comments HM COLONOSCOPY Routine 08/09/2021 3:46 PM EDT documented in this encounter Results * Hm Colonoscopy (08/09/2021 3:46 PM EDT) us Historical Provider HEALTH MAINTENANCE Final Result documented in this encounter Visit Diagnoses Not on filedocumented in this encounter Care Teams Production Service Manager Relationship Specialty Start Date End Date Sanaz Pope MD [address] [place] [address] PCP - General Family Medicine 10/13/21 documented as of this encounter
--- OUTSIDE RECORDS SUMMARY | 2024-03-20 13:12 | XMS_ITS | Clinical Summary ---
Author Organization [employer] Address [address] [facility] 7[address] [place] [address] Care Team Providers Care Steam Table Attendant Name Role Phone Sanaz Pope MD Primary Care Provider [phone] Allergies No known active allergies Medications albuterol 108 (90 Base) MCG/ACT inhaler Inhale 2 puffs every 4 (four) hours if needed. Every 4-6 hours as needed 11/19/19 21 Active fluticasone (Flonase) 50 MCG/ACT nasal spray Administer 2 sprays into each nostril 1 (one) time each day. 05/12/19 22 Active loratadine (Claritin) 10 MG tablet Take 1 tablet by mouth if needed each day. 11/19/19 21 Active witch tabitha-glycerin (Tucks) pad Apply 1 each topically if needed. Use as directed 08/26/19 21 Active Respiratory Therapy Supplies (Nebulizer/Tubing /Mouthpiece) kit Act joseph Blood Pressure kit Medium and Large Cuff Active fluticasone (Flovent) 110 MCG/ACT inhaler Inhale 2 puffs every 12 (twelve) hours. Rinse mouth out afterwards 36 g 1 05/12/19 23 Active lisinopril 20 MG tabletIndications :Essential hypertension Take 1 tablet (20 mg) by mouth Once per day. 90 tablet 3 07/07/19 24 Active omeprazole (PriLOSEC) [address] capsule Take 1 capsule (20 mg) by mouth in the morning. 90 capsule 3 07/07/19 24 Active meloxicam (Mobic) 7.5 MG tablet Take 1 tablet (7.5 mg) by mouth Once per day. For arthritis 90 tablet 3 07/07/19 24 2024 Active cromolyn (Opticrom) 4 % ophthalmic solutionIndicatio ns:Allergic conjunctivitis of both eyes 1-2 drops to the both eyes 4x/day for 7 days (Guinean label please) 10 mL 08/22/19 24 Active risperiDONE (RisperDAL) 1 MG tabletIndications :Anxiety TAKE 1 TABLET BY MOUTH AT BEDTIME 90 tablet 09/12/19 24 Active simvastatin (Zocor) 20 MG tabletIndications :Hyperlipidemia, unspecified hyperlipidemia type Take 1 tablet (20 mg) by mouth Once per day. 90 tablet 09/12/19 24 Active Acetaminophen Extra Strength 500 MG tabletIndications :Unilateral primary osteoarthritis, right knee,Pain in right knee TAKE 2 TABLETS BY MOUTH EVERY 8 HOURS NEEDED FOR PAIN 180 tablet 3 09/18/19 24 Active D3 Super Strength 50 MCG (2000 UT) capsule Take 50 mcg by mouth Once per day. 07/07/19 24 Active SUMAtriptan (Imitrex) 25 MG tablet Take 1 tablet (25 mg) by mouth 1 (one) time if needed for migraine for up to 36 doses. May repeat dose once in 2 hours if no relief. Do not exceed 2 doses in 24 hours. 9 tablet 3 11/15/19 24 Active Diclofenac Sodium 1 % gel APPLY TOPICALLY TO THE AFFECTED AREA(S) TWICE DAILY IN THE MORNING AND AT BEDTIME NEEDED FOR PAIN 100 g 1 01/24/20 24 Active doxycycline (Vibramycin) 100 MG capsuleIndication s:PID (acute pelvic inflammatory disease) Take 1 capsule (100 mg) by mouth 2 times daily for 14 days. Take with at least 8 ounces (large glass) of water, do not lie down for 30 minutes after 28 capsule 03/19/19 25 2024 Active metroNIDAZOLE (Flagyl) 500 MG tabletIndications :PID (acute pelvic inflammatory disease) Take 1 tablet (500 mg) by mouth 2 times daily for 14 days. 28 tablet 03/19/19 25 2024 Active doxycycline (Vibramycin) 100 MG capsuleIndication s:PID (acute pelvic inflammatory disease) Take 1 capsule (100 mg) by mouth 2 times daily for 10 days. Take with at least 8 ounces (large glass) of water, do not lie down for 30 minutes after 20 capsule 03/19/19 25 2024 Discontinued metroNIDAZOLE (Flagyl) 500 MG tabletIndications :PID (acute pelvic inflammatory disease) Take 1 tablet (500 mg) by mouth 2 times daily for 10 days. 20 tablet 03/19/19 25 2024 Discontinued Hospital, Clinic, or Other Facility Administered Medication Ordered Dose Route Frequency Start Date End Date Status cefTRIAXone (Rocephin) vial 500 mgIndications:PID (acute pelvic inflammatory disease) 500 mg IM Once 03/19/2024 03/19/2024 Ended lidocaine (Xylocaine) 1 % injection 10 mgIndications:PID (acute pelvic inflammatory disease) 10 mg IJ Once 03/19/2024 03/19/2024 Ended Active Problems Problem Noted Date Diagnosed Date Pelvic pain 03/19/2024 Assessment & Plan (03/19/2024 6:10 PM EST): Differenital includes diverticulitis, PID, UTI -treat for possible PID with: -ceftriaxone 500mg IM now -doxy bid x 14 days satarted 03/19/24 -metronidazole bid for 14 days started 03/19/24 GC chl cultures -strict ER precautions for worsening pain, fever, or other concerns -return in 48 hours for revaluation Hepatitis C antibody positive in blood Primary osteoarthritis of both hips 11/09/2023 Vitamin D deficiency 06/21/2017 Allergic rhinitis 04/06/2015 Anxiety 04/06/2015 Essential hypertension 04/06/2015 Assessment & Plan (11/09/2023 11:10 AM EDT): Continue Lisinopril 20mg daily Continue checking BPs daily Low Na diet, walk daily Cr normal followup in 4-6 months or sooner as needed Assessment & Plan (07/10/2023 8:16 AM EDT): Continue Lisinopril 20mg daily Continue checking BPs daily Low Na diet, walk daily Cr normal followup in 4-6 months or sooner as needed Assessment & Plan (07/30/2022 9:48 AM EDT): Continue Lisinopril 20mg daily Continue checking BPs daily Low Na diet Cr normal followup in 4-6 months or sooner as needed Assessment & Plan (02/08/2022 11:48 AM EST): Continue Lisinopril 20mg daily Continue checking BPs daily Low Na diet Check labs today followup in 4-6 months or sooner as needed Gastroesophageal reflux disease without esophagi tis 04/06/2015 Mild persistent asthma 04/06/2015 Assessment & Plan (07/30/2022 9:48 AM EDT): Continue JODIE prn Continue Flovent as controller medication Will write script for nebulizer as pt's is broken currently Assessment & Plan (02/08/2022 11:45 AM EST): Continue JODIE prn Continue Flovent as controller medication OAB (overactive bladder) 04/06/2015 Obesity 04/06/2015 Primary osteoarthritis involving multiple joints 04/06/2015 Assessment & Plan (04/11/2023 1:31 PM EST): History of chronic pain associated with OA of various joints including low back and hips Following with [facility]. Previously w/ COT, not currently. Goal to increase distance of ambulation before experiencing pain. Good engagement and participation with Group Medical Visit model - today was first visit. Encouraged multifactorial approach to pain control including pharm and non-pharm modalities Assessment & Plan (02/03/2023 1:38 PM EST): Reviewed alternative treatments such as movement therapies and acupuncture Suggested considering group visits for chronic pain as well at end of February 2023 Does not want injections of surgeries as offered in Pain Mgmt Assessment & Plan (07/30/2022 9:49 AM EDT): Reviewed alternative treatments such as movement therapies and acupuncture continue Tramadol 50mg three times a day as needed Continue POLICE INSPECTOR appointments followup with Pain Mgmt for other treatment modalities Assessment & Plan (02/08/2022 11:47 AM EST): continue Tramadol 50mg three times a day as needed Continue POLICE INSPECTOR appointments followup with Pain Mgmt to see if they can offer her the implantable device Encounters Date Type Department Care Team Description 03/19/2024 5:40 PM EST Office Visit [facility] [address] [place] [phone] Velma Yung MD Pelvic pain (Primary Dx); PID (acute pelvic inflammatory disease) 01/29/2024 Telephone [facility] [address] [place] [phone] Sanaz Pope MD 01/24/2024 Refill [facility] [address] [place] [address] [phone] Sanaz Pope MD 01/21/2024 Orders Only [facility] [address] [place] [address] [phone] Sanaz Pope MD Mixed conductive and sensorineural hearing loss of both ears (Primary Dx) from Last 3 Months Immunizations Name Administration Dates Next Due Hep B, adult 09/19/2011,08/23/2010,07/20/2010 Influenza injectable quadriv alent IIV4 with preservative 01/26/2017,11/12/2015 Influenza injectable quadriv alent preservative free 11/10/2014 Influenza, IIV3, injectable 11/18/2013,0 10/25/2010,12/10/2001,01/12 Influenza, Split (incl. patt fied surface antigen) 10/25/2012,01/18/2012 Influenza, seasonal, injecta ble, preservative free 11/08/2023 MMR 04/13/1992 Pfizer Covid-19 Vaccine 12+ 11/08/2023,,05/27/2020 Pneumococcal Conjugate PCV 20 11/08/2023 Pneumococcal Polysaccharide PPSV23 06/30/2010 TD (adult), 2 Lf tetanus tox oid, preservative free, adsorbed 06/11/2001,04/13/1992 Tdap 09/09/2021,06/24/2010 Zoster, Recombinant 07/27/2022,05/25/2022 Social History Tobacco Use Types Packs/Day Years [...] Orientation Straight 12/13/2021 10 :15 AM EDT Last Filed Vital Signs Vital Sign Reading [...] Mass Index 32.5 03/19/2024 5:33 PM EST Plan of Treatment Upcoming Encounters Date Type Department Care Team (Late st Contact Info) Description 03/21/2024 1:00 PM EST Office Visit [facility] [address] [place], [place] [phone] 04/05/2024 10:30 AM EST Office Visit [facility] OPT[facility] [address] [place] [address] Anamika Mcgraw, OD [address] [place] [address] Health Maintenance Due Date Last Done Comments CT Colonography 1959 FIT DNA/Cologuard 1959 FIT 1959 FOBT 1959 Sigmoidoscopy 1959 Alcohol/Substance Use Screening 1971 Dental Prophylaxis 05/13/2010 11/12/2009 Dental X-Ray: Bitewings 06/16/2010 06/15/2009 Dental Oral Exam 02/03/2017 08/03/2016, 08/03/2016 RSV Patients and Patients Aged 60 years or older (1 - Risk 60-74 years 1-dose series) 2019 Dental X-Ray: Full Mouth 08/05/2019 08/03/2016, 04/2009 Mammogram 06/16/2023 06/15/2021, 06/2018, 09/13/2017 Depression Monitoring (PHQ-9) 01/07/2024 07/07/2023, 07/07/2023 Depression Screening 07/06/2024 07/07/2023, 07/07/19 SDOH Screening 11/07/2024 11/08/2023 Tobacco Screening 03/19/2025 03/19/2024 Cervical Cancer Screening 07/21/2025 HPV/Cotest 07/21/2025 07/21/2020 Pap Smear 07/21/2025 07/21/2020 Colonoscopy 08/09/2026 08/09/2021 Colorectal Cancer Screening 08/09/2026 Lipid Panel 07/06/2028 07/07/2023, 01/14, 07/13/2021 DTaP/Tdap/Td Vaccines (3 - Td or Tdap) 09/10/2031 09/09/2021, 06/24/2010, 06/11/2001, Additional history exists Hepatitis B Vaccines Completed 09/19/2011, 08/23/2010, 07/20/2010 Zoster Vaccines Completed 07/27/2022, 05/25/2022 COVID-19 Vaccine Completed 11/08/2023, 11/2020, 05/27/2020 Hepatitis C Screening Completed 11/08/2023 , 11/08/2023, 07/13/2021 Influenza Vaccine Completed 11/08/2023, , 11/12/2015, Additional history exists Pneumococcal Vaccine: 50+ Years Completed 11/08/2023, 06/30/2010 HIB Vaccines Aged Out No longer eligi ble based on patient's age to complete this topic HPV Vaccines Aged Out No longer eligi ble based on patient's age to complete this topic Hepatitis A Vaccines Aged Out No long er eligible based on patient's age to complete this topic IPV Vaccines Aged Out No longer eligi ble based on patient's age to complete this topic Meningococcal Vaccine Aged Out No karol jc eligible based on patient's age to complete this topic RSV under 20 months Aged Out No longe r eligible based on patient's age to complete this topic Rotavirus Vaccines Aged Out No longer eligible based on patient's age to complete this topic Procedures Procedure Name Priority Date/Time Associated Diagnosis Comments URINALYSIS, COMPLETE, WITH REFLEX TO CULTURE Routine 03/19/2024 5:53 PM EST Pelvic pain POCT URINALYSIS DIPSTICK Routine 03/19/2024 5:42 PM EST Pelvic pain HEPATITIS C AB W/REFL TO HCV RNA, QN, PCR Routine 11/08/2023 3:33 PM EDT Screening examination for STI LIPID PANEL, STANDARD Routine 07/07/2023 11:28 AM EDT Essential hypertension HM COLONOSCOPY Routine 08/09/2021 3:46 PM EDT MAMMOGRAM GENERIC Routine 06/15/2021 11: 35 AM EDT HPV MRNA E6/E7 Routine 07/21/2020 1:07 PM EDT THINPREP PAP Routine 07/21/2020 1:07 PM EDT PANORAMIC RADIOGRAPHIC IMAGE Routine 08/03/2016 12:00 AM EDT COMPREHENSIVE ORAL EVALUATION - NEW OR ESTABLISHED PATIENT Routine 08/03/2016 12:00 AM EDT PROPHYLAXIS - ADULT Routine 11/12/2009 1 2:00 AM EDT DIAGNOSTIC - DIAGNOSTIC IMAGING - INTRAORAL - COMPREHENSIVE SERIES OF RADIOGRAPHIC IMAGES Routine 06/15/2009 12:00 AM EDT from Last 3 Months or Most Recently Relevant to Health Maintenance Results * Urinalysis, Complete, with Reflex to Culture (03/19/2024 5:53 PM EST) Color Urine Yellow [facility] Appearance Urine Clear [facility] PH 6.5 5.0 - 9.0 [facility] Glucose Urine UA Negative Negative mg/dL [facility] Urine Blood Negative Negative [facility] Specific [place] - Urine 1.025 1.005 - 1.025 [facility] Urine Protein Negative Neg-Trace mg/dL [facility] Urine Ketones Negative Negative mg/dL [facility] Nitrite Urine Negative Negative [facility] Leukocyte Esterase Urine Negative Negative [facility] RBC Urine 0-2 0 - 2 /HPF [facility] Urine WBC 0-5 0 - 5 /HPF [facility] Urine Squamous Epithelial Cell 0-2 0 - 2 /HPF [facility] Urine Bacteria None Seen None Seen [facility] Hyaline Casts, Urine 0-2 0 - 2 /LPF [facility] Urine Urine specimen obtained by clean catch procedure / Unknown 03/19/2024 5:53 PM EST 03/20/2024 11:27 AM EST Narrative [facility] - 03/20/2024 11:51 AM EST Urine, Clean Catch us Velma Yung MD LAB URINE ORDERABLES Final Result [facility] [address] [place] [phone] * POCT Urinalysis (03/19/2024 5:42 PM [...] CARE TEST ENTER/E DIT ORDERABLES Final Result * (ABNORMAL) Hepatitis C Antibody with Reflex to HCV, RNA, Quantitative, Real- Time PCR (11/08/2023 3:33 PM EDT) Pathologist [facility] Hepatitis C Antibody Reactive( A) Nonreactive [facility] Comment:Presumptive evidence of antibodies to HCV. Blood Venous blood specimen / Unknown 11/08/2023 3:33 PM EDT 11/08/2023 4:21 PM EDT Sanaz Pope MD LAB BLOOD ORDERABLES Final Res ult [facility] [address] [place] [phone] * Lipid Panel, Standard (07/07/2023 11:28 AM EDT) Triglycerides 111 <150 mg/dL [facility] Comment:Desirable Triglyceri de: less than 150 mg/dLBorderline High Triglyceride 150-199 mg/dLHigh Triglyceride: 200-499 mg/dLVery High Triglyceride: greater than or equal to 5OO mg/dL Cholesterol 127 <200 mg/dL [facility] Comment:Desirable Cholestero l: less than 200 mg/dLBorderline High Cholesterol: 200-239 mg/dLHigh Cholesterol: greater than 239 mg/dL LDL Cholesterol Calculated 57 <100 mg/dL [facility] Comment:Desirable LDL: less than 100 mg/dLNear Optimal/Above Optimal LDL: 110- 129 mg/dLBorderline High LDL: 130-159 mg/dLHigh LDL: 160-189 mg/dLVery High LDL: greater than or equal to 190 mg/dL HDL Cholesterol 48 >40 mg/dL [facility] Comment:Desirable HDL: great er than 40 mg/dL Note: This HDL assay may give artificially low results in patients with liver disease. Blood Venous blood specimen / Unknown 07/07/2023 11:28 AM EDT 07/07/2023 1:13 PM EDT Sanaz Pope MD LAB BLOOD ORDERABLES Final Res ult [facility] [address] [place] [phone] * Hm Colonoscopy (08/09/2021 3:46 PM EDT) Historical Provider HEALTH MAINTENANCE Final Result * Mammography Report 1 (06/15/2021 11:35 AM EDT) Anatomical Region Laterality Modality Breast Bilateral Mammography 06/15/2021 11:3 5 AM EDT Narrative 06/16/2021 4:29 PM EDT Refer to the Notes tab for result details [facility] Procedure: Mammography Report 1 Procedure Note Provider, MD Alisa - 05/08/2022 Refer to the Notes tab for result details [facility] Procedure: Mammography Report 1 Kayla Resendez FUSE CUP EXPANDER IMG BI PROCEDURES Final Result * THINPREP PAP (07/21/2020 1:07 PM EDT) Clinical Information: None given [facility] COMMENT [facility] Comment: EXPLANATORY NOTE: ? The Pap is a screening test for cervical cancer. It is ?? not a diagnostic test and is subject to false negative ?? and false positive results. It is most reliable when a ?? satisfactory sample, regularly obtained, is submitted ?? with relevant clinical findings and history, and when ?? the Pap result is evaluated along with historic and ?? current clinical information. ?? [employer]: [facility] Comment: RXB, CT(ASCP) CT screening location: [address] ??[id number] Interpretation/Res ult: [facility] Comment: Negative for intraepithelial lesion or malignancy. Atrophic pattern; predominantly parabasal cells LMP: NONE [facility] Prev. BX: NONE [facility] Prev. PAP: NONE [facility] SOURCE: None given [facility] Statement Of Adequacy: SATISFACTORY FOR EVALUATION [facility] 07/21/2020 1:07 PM EDT [employer] CMO & PRESIDENT LAB PATHOLOGY ORDERABLES Fi nal Result Performing Organization Address [facility] [address]/[facility] de Phone Number [facility] [address] * HPV mRNA E6/E7 (07/21/2020 1:07 PM EDT) HPV nRNA E6/E7 Not Detected Not Detected [facility] Comment: Methodology: [employer] Clerk-Mediated Amplification This assay detects E6/E7 viral messenger RNA (mRNA) from 14 high-risk HPV types (16,18,31,33,35,39,45,51,52,56,58,59,66,68). ? The analytical performance characteristics of this assay have been determined by [employer]. The modifications have not been cleared or approved by the FDA. This assay has been validated pursuant to the CLIA regulations and is used for clinical purposes. ?? For additional information, please refer to http://education.[employer]/faq/QMD979l6 (This link if provided for information/ educational purposes only.) 07/21/2020 1:07 PM EDT [email or web address] LAB BLOOD ORDERABLES Final Result Performing Organization Address [facility] [address]/[employer] de Phone Number [facility] [address] [place] [phone], from Last 3 Months or Most Recently Relevant to Health Maintenance Insurance [facility] STANDARD Care Teams Steam Table Attendant Relationship Specialty Start Date End Date Sanaz Pope MD [address] [place], [place] PCP - General Family Medicine 10/13/21
--- OUTSIDE RECORDS SUMMARY | 2024-03-20 13:12 | XMS_ITS | Encounter Summary ---
Author Organization [employer] Address [address] [facility] [address] [place] [address] Care Team Providers Care Poultry And Fish Butcher Name Role Phone Sanaz Pope MD Primary Care Provider [phone] Reason for Visit * Reason Comments Med Refill Encounter Details Date Type Department Care Team (Late st Contact Info) Description 09/20/2022 Refill [facility] [address] [place] [address] Lashawn Martines MD [address] [place], [place] [phone] Cervicalgia Social History Tobacco Use Types Packs/Day Years [...] AM EDT documented as of this encounter Miscellaneous Notes * Telephone Encounter - Ramona Lara RN - 09/20/2022 11:54 AM EDT Pt was a 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 TC via P/I#[id number], someone answered call X2, each time hanging up after I was introduced. Called back a 3rd time, no answer. L/M stating she needs to call back to reschedule her FIELD OBSERVER appt she NCNS for 08/04/22. Phone number provided. Will send message to PCP requesting hold on Tramadol RX until she reschedules FIELD OBSERVER RV appt. documented in this encounter Plan of Treatment Upcoming Encounters Date Type Department Care Team (Late st Contact Info) Description 03/21/2024 1:00 PM EST Office Visit [facility] [address] [place] [address] 04/05/2024 10:30 AM EST Office Visit [facility] [address] [place] [address] Anamika Mcgraw, OD [address] [place] [address] documented as of this encounter Visit Diagnoses Diagnosis Cervicalgia documented in this encounter Care Teams Poultry And Fish Butcher Relationship Specialty Start Date End Date Sanaz Pope MD [address] [place] [address] PCP - General Family Medicine 10/13/21 documented as of this encounter
[2024-03-20 14:05] LABS: CT PCR NOT DETECTED (Not Detect.); NG PCR NOT DETECTED (Not Detect.)
== END 2024-03-19 00:01 | disposition home or self-care (01) ==
LOC: HO.HHCLNP
PROVIDERS: Visit Provider Family Medicine
DX: R10.2 Pelvic and perineal pain (principal)
CPT/HCPCS: 81001; 87491; 87591

== ENCOUNTER 2024-03-25 15:47 | Outpatient (REF) | payer MEDICAID, SELFPAY ==
--- OUTSIDE RECORDS SUMMARY | 2024-03-25 16:30 | XMS_ITS | Encounter Summary ---
Author Organization [employer] Address [address] [facility] [address] [place] [address] Care Team Providers Care Licensed Esthetician Name Role Phone Sanaz Pope MD Primary Care Provider [phone] Encounter Details Date Type Department Care Team (Late st Contact Info) Description 03/21/2024 Telephone [facility] [address] [place], [place] [phone] Velma Yung MD [address] [place], [place] [phone] Social History Tobacco Use Types Packs/Day Years Used Date Smoking Tobacco: Never Passive Smoke Exposure: Never Smokeless Tobacco: Never Alcohol Use Standard [...] encounter Miscellaneous Notes * Telephone Encounter - Joanna Mario RN - 03/21/2024 9:15 AM EST Patient contacted to status check pelvic pain per last Walk In Center visit on 03/19/[address] Yung. No answer at [phone] and no voicemail available to leave a message. Call also attempted [phone] but the number is not a working number at this time. Please reattempt. NOTE: Patient was treated for possible PID with Ceftriaxone 500mg x1 in office visit, Doxycycline 100mg BID x14 days (started 03/19/24), and Metronidazole 500mg BID x14 days started 03/19/24). CT/ NG cultures were negative. Patient was advised to present to the ED for worsening pain, fever, or other concerns, and was scheduled to return today, 03/21/[address] Yung at [address]. Dr Yung will not bein this afternoon. Per Dr Yung- status check via telephone call will determine follow up plan (continue current tx plan vs reschedule appt). documented in this encounter Plan of Treatment Upcoming Encounters Date Type Department Care Team (Late st Contact Info) Description 04/05/2024 10:30 AM EST Office Visit [facility] [address] [place] [address] [phone] Anamika Mcgraw OD [address] [place] [address] documented as of this encounter Visit Diagnoses Not on filedocumented in this encounter Additional Health Concerns Assessment Noted Time PHQ-9 Depression Total Score: 11 024 11:56 AM EDT documented as of this encounter Care Teams Licensed Esthetician Relationship Specialty Start Date End Date Sanaz Pope MD [address] [place] [address] PCP - General Family Medicine 10/13/21 documented as of this encounter
--- OUTSIDE RECORDS SUMMARY | 2024-03-25 16:30 | XMS_ITS | Encounter Summary ---
Author Organization [facility] Address [address] [facility] [address] [place] [address] Care Team Providers Care Manager Of Tax Name Role Phone Sanaz Pope MD Primary Care Provider [phone] Encounter Details Date Type Department Care Team (Late Contact Info) Description 02/09/2022 Orders Only [facility] MEDICINE [address] [place], [place] [phone] Sanaz Pope MD [address] [place] [address] Hyperlipidemia, unspecified hyperlipidemia type (Primary Dx) Social [...] Upcoming Encounters Date Type Department Care Team ([facility] Contact Info) Description 04/05/2024 10:30 AM EST Office Visit [facility] OPT[facility] [address] [place], [place] [phone] Anamika Mcgraw, OD [address] [facility] [place] [address] documented as of this encounter Procedures Procedure [...] Dimer High Sensitivity (08/12/2022 9:52 PM EDT) D Dimer High Sensitivity 176 NG/ML [facility] Comment:D-DIMER HS REFERENCE RANGENote: Our assay reports D-Dimer Units (D- DU).The cut-off value for venous thromboembolic (VTE) disease is230 ng/mL. This value has a very high negative predictivevalue when the patient has a low to moderate clinicalprobability of VTE.The upper limit of normal is 243 ng/mL. 08/12/2022 9:52 PM EDT 08/12/2022 9:57 PM EDT us [facility] External Provider LAB BLO OD ORDERABLES Final Result [facility] [address] [place] [address] [phone] * High Sensitivity Troponin I (08/12/2022 9:52 PM EDT) [facility] TROPONIN I HIGH SENSITIVITY <2.7 <3.5 - 17.0 ng/L [facility] Comment:The Mcgarry high sens itivity Troponin-I results should beused in conjunction with other diagnostic information suchas ECG, clinical observations and information, and patientsymptoms to aid in the diagnosis of MO. 08/12/2022 9:52 PM EDT 08/12/2022 9:57 PM EDT [facility] External Provider LAB BLO OD ORDERABLES Final Result Performing Organization Address [facility] Co de Phone Number [facility] [address] [place] [address] [phone] * High Sensitivity Troponin I (08/12/2022 6:56 PM EDT) [facility] TROPONIN I HIGH SENSITIVITY <2.7 <3.5 - 17.0 ng/L [facility] Comment:The Mcgarry high sens itivity Troponin-I results should beused in conjunction with other diagnostic information suchas ECG, clinical observations and information, and patientsymptoms to aid in the diagnosis of MO. 08/12/2022 6:56 PM EDT 08/12/2022 6:59 PM EDT [facility] External Provider LAB BLO OD ORDERABLES Final Result Performing Organization Address [facility]/ZIP Co de Phone Number [facility] [address] [place] [address] [phone] * Hepatic Function Panel (08/12/2022 6:56 PM EDT) [facility] Bilirubin, Total 0.3 0.0 - 1.0 mg/dL [facility] Bilirubin, Direct 0.1 0.0 - 0.5 mg/dL [facility] Aspartate Amino Transferase 20 5 - 31 U/L [facility] Alanine Aminotransferase 15 0 - 31 U/L [facility] Total Protein 6.7 6.5 - 8.0 g/dL [facility] Albumin Level 4.0 3.5 - 5.0 g/dL [facility] Alkaline Phosphatase 66 39 - 117 U/L [facility] 08/12/2022 6:56 PM EDT 08/12/2022 6:59 PM EDT us [facility] External Provider LAB BLO OD ORDERABLES Final Result [facility] [address] [place] [address] [phone] * (ABNORMAL) CBC auto differential (08/12/2022 6:56 PM EDT) White Blood Count 5.9 4.8 - 10.8 X10*3/uL [facility] Red Blood Count 4.20 4.20 - 5.50 X10*6/uL [facility] Hemoglobin 11.2(L) 12.0 - 16.0 g/dl [facility] Hematocrit 35.1(L) 37.0 - 47.0 % [facility] Mean Corpuscular Volume 83.6 80.0 - 98.0 fL [facility] Mean Corpuscular Hemoglobin 26.7(L) 27.0 - 33.0 pg [facility] Mean Corpuscular HGB Conc 31.9 31.0 - 35.0 g/dl [facility] Red Cell Distribution Width 14.6 11.0 - 16.0 % [facility] Platelet Count 163 160 - 400 X10*3/uL [facility] Mean Platelet Volume 11.4 9.4 - 12.3 fL [facility] Neutrophils Percent Auto 71.6 45 - 73 % [facility] Imm Gran Pct Auto 0.2 0.0 - 0.4 % [facility] Lymphocytes Percent Auto 20.7 20 - 40 % [facility] Monocytes Percent Auto 6.1 2 - 11 % [facility] Eosinophils Percent Auto 0.9 0 - 4 % [facility] Basophils Percent Auto 0.5 0 - 2 % [facility] NRBC Pct Auto 0.0 0.0 - 0.2 /100WBC [facility] Neutrophils Absolute Auto 4.2 2.0 - 8.3 x10*3/uL [facility] Imm Gran Abs Auto 0.01 0.00 - 0.03 X10*3/uL [facility] Lymphocytes Absolute Auto 1.2 1.2 - 4.9 X10*3/uL [facility] Monocytes Absolute Auto 0.4 0.1 - 1.2 X10*3/uL [facility] Eosinophils Absolute Auto 0.1 0.0 - 0.4 X10*3/uL [facility] Basophils Absolute Auto 0.0 0.0 - 0.2 X10*3/uL [facility] NRBC Abs Auto 0.000 0.0 - 0.012 X10*3/uL [facility] 08/12/2022 6:56 PM EDT 08/12/2022 7:29 PM EDT [facility] External Provider LAB BLO OD ORDERABLES Final Result Performing Organization Address [facility]/ZIP Co de Phone Number [facility] [address] [place] [phone] * Ethanol (08/12/2022 6:56 PM EDT) ETHANOL (MG/DL) IN SER/PLAS 21 mg/dL [facility] Comment:Serum/plasma ethanol results are to be used formedical/treatment purposes only. 08/12/2022 6:56 PM EDT 08/12/2022 6:59 PM EDT [facility] External Provider LAB BLO OD ORDERABLES Final Result [facility] [address] [place] [address] [phone] * (ABNORMAL) Basic Metabolic Panel (08/12/2022 6:56 PM EDT) Sodium 141 135 - 145 mmol/L [facility] Potassium 4.1 3.3 - 5.1 mmol/L [facility] Chloride 107 96 - 108 mmol/L [facility] Carbon Dioxide 25 22 - 29 mmol/L [facility] Anion Gap 13 12 - 20 [facility] Urea Nitrogen (BUN) 17(H) 9 - 16 mg/dL [facility] Creatinine, Serum 0.66 0.5 - 1.4 mg/dL [facility] Creatinine Clr Calc Pharmacy 73.8 [facility] Comment:Provided height and weight: 147.32 cm,72.575 kg.eGFR (calculated from the MDRD study equation) and eCrCl(calculated from the Cockcroft-Gault equation) are based ondifferent parameters and may not yield comparable results.If eCrCl result is absurd, please check patient'sheight/weight. Estimated Glomerular Filt Rate >60 [facility] Comment:NOTE: For -Am erican individuals, multiply the result by 1.210.Chronic Kidney Disease: Estimated GFR < 60 mL/min/[id number] Kidney Disease: Estimated GFR < 15 mL/min/1.73m2 Glucose 132(H) 60 - 115 mg/dL [facility] Calcium 9.8 8.4 - 10.2 mg/dL [facility] 08/12/2022 6:56 PM EDT 08/12/2022 6:59 PM EDT [facility] External Provider LAB BLO OD ORDERABLES Final Result [facility] [address] [place] [address] [phone] documented in this encounter Visit Diagnoses Diagnosis Hyperlipidemia, unspecified hyperlipidemia type- Primary documented in this encounter Care Teams Manager Of Tax Relationship Specialty Start Date End Date Sanaz Pope MD [address] [place] [address] PCP - General Family Medicine 10/13/21 documented as of this encounter
--- OUTSIDE RECORDS SUMMARY | 2024-03-25 16:30 | XMS_ITS | Encounter Summary ---
Author Organization [facility] Address [address] [facility] 7t [place] [address] Care Team Providers Care Art History Professor Name Role Phone Sanaz Pope MD Primary Care Provider Reason for Referral * Consultation (Routine) - Closed Specialty Diagnoses / Procedures Referred By Contac t Referred To Contact Otolaryngology Diagnoses Mixed conductive and sensorineural hearing loss of both ears Sanaz Pope MD [address] [place] [address] Phone: tel: fax: [facility] [address] Phone: tel: fax: Referral ID Status Reason Start Date Expiration Date V isits Requested Visits Authorized [id number] Closed Specialty Services Required 01/29/2024 01/28/2025 6 6 Encounter Details Date Type Department Care Team (Late st Contact Info) Description 01/21/2024 Orders Only [facility] MEDICINE [address] [place], [place] [phone] Sanaz Pope MD [address] [place], [place] [phone] Mixed conductive and sensorineural hearing loss of [...] Description 04/05/2024 10:30 AM EST Office Visit [facility] OPTOMETRY [address] [place] [address] Lucien, Anamika, OD [address] [place] [address] Scheduled Referrals Name Type Priority Associated Diagnoses [...] documented as of this encounter Care Teams Art History Professor Relationship Specialty Start Date End Date Sanaz Pope MD [address] [place] [address] PCP - General Family Medicine 10/13/21 documented as of this encounter
--- OUTSIDE RECORDS SUMMARY | 2024-03-25 16:30 | XMS_ITS | Encounter Summary ---
Author Organization [facility] Address [address] [facility] [address]t [place] [address] Care Team Providers Care Warp Drawer Name Role Phone Sanaz Pope MD Primary Care Provider [phone] Reason for Visit * Reason Comments Pelvic Pain Encounter Details Date Type Department Care Team ([facility] st Contact Info) Description 03/19/2024 5:40 PM EST Office Visit [facility] [address] [place], [place] [phone] Velma Yung MD [address] [place], [place] [phone] Pelvic pain (Primary Dx); PID (acute pelvic [...] Description 04/05/2024 10:30 AM EST Office Visit [facility] OPTOMETRY [address] [place] [address] Lucien, Anamika, OD [address] [place] [address] documented as of this encounter Procedures Procedure Name Priority Date/Time Associated Diagnosis Comments URINALYSIS, COMPLETE, WITH REFLEX TO CULTURE Routine 03/19/2024 5:53 PM EST Pelvic pain CHLAMYDIA/N. GONORRHOEAE RNA, TMA, UROGENITAL Routine 03/19/2024 5:51 PM EST Pelvic pain POCT URINALYSIS DIPSTICK Routine 03/19/2024 5:42 PM EST Pelvic pain documented in this encounter Results * Urinalysis, Complete, with Reflex to Culture (03/19/2024 5:53 PM EST) Color Urine Yellow [facility] Appearance Urine Clear [facility] PH 6.5 5.0 - 9.0 [facility] Glucose Urine UA Negative Negative mg/dL [facility] Urine Blood Negative Negative [facility] Specific [place] - Urine 1.025 1.005 - 1.025 [facility] Urine Protein Negative Neg-Trace mg/dL [facility] Urine Ketones Negative Negative mg/dL [facility] Nitrite Urine Negative Negative [facility] Leukocyte Esterase Urine Negative Negative [facility] RBC Urine 0-2 0 - 2 /HPF [facility] Urine WBC 0-5 0 - 5 /HPF [facility] Urine Squamous Epithelial Cell 0-2 0 - 2 /HPF [facility] Urine Bacteria None Seen None Seen [facility] Hyaline Casts, Urine 0-2 0 - 2 /LPF [facility] Urine Urine specimen obtained by clean catch procedure / Unknown 03/19/2024 5:53 PM EST 03/20/2024 11:27 AM EST Narrative [facility] - 03/20/2024 11:51 AM EST Urine, Clean Catch Velma Yung MD LAB URINE ORDERABLES Final Result [facility] [address] [place] [phone] * Chlamydia/N. Gonorrhoeae RNA, TMA, Urogenitial (03/19/2024 5:51 PM EST) CT PCR NOT DETECTED Not Detect. [facility] Comment:A not detected test result does not exclude the possibilityof infection because test results can be affected byimproper specimen collection, concurrent antibiotic therapy,or the number of organisms in the specimen which may bebelow the sensitivity of the test. As with many diagnostictests, results from the Xpert CT/NG assay should beinterpreted in conjunction with other laboratory andclinical data available to the clinician.Xpert CT/NG performance has not been evaluated in patientsless than 14 years of age. The assay should not be used forthe evaluationof suspected sexual abuse or for other medico-legalindications. Additional testing is recommended in anycircumstance when false positive or false negative resultscould lead to adverse medical, social or psychologicalconsequences. NG PCR NOT DETECTED Not Detect. [facility] Comment:A not detected test result does not exclude the possibilityof infection because test results can be affected byimproper specimen collection, concurrent antibiotic therapy,or the number of organisms in the specimen which may bebelow the sensitivity of the test. As with many diagnostictests, results from the Xpert CT/NG assay should beinterpreted in conjunction with other laboratory andclinical data available to the clinician.Xpert CT/NG performance has not been evaluated in patientsless than 14 years of age. The assay should not be used forthe evaluationof suspected sexual abuse or for other medico-legalindications. Additional testing is recommended in anycircumstance when false positive or false negative resultscould lead to adverse medical, social or psychologicalconsequences. Swab (Vaginal Swab) 03/19/2024 5:51 PM EST 03/20/2024 11:56 AM EST Narrative [facility] - 03/20/2024 2:05 PM EST Vaginal us Velma Yung MD LAB MICROBIOLOGY - GENERAL ORDERABLES Final Result [facility] [address] [place] [phone] * POCT Urinalysis (03/19/2024 5:42 PM EST) [...] documented as of this encounter Care Teams Warp Drawer Relationship Specialty Start Date End Date Sanaz Pope MD [address] [place] [phone] PCP - General Family Medicine 10/13/21 documented as of this encounter
--- OUTSIDE RECORDS SUMMARY | 2024-03-25 16:30 | XMS_ITS | Encounter Summary ---
Author Organization [employer] Address [address] [facility] [address] [place] [address] Care Team Providers Care Manager Product Support Name Role Phone Sanaz Pope MD Primary Care Provider [phone] Encounter Details Date Type Department Care Team ([facility] Contact Info) Description 06/29/2022 Telephone [facility] MEDICINE [address] [place], [place] [phone] Nimco Lopez RN Social History Tobacco Use [...] Upcoming Encounters Date Type Department Care Team ([facility] Contact Info) Description 04/05/2024 10:30 AM EST Office Visit [facility] OPTOMETRY [address] [place], [place] [phone] Lucien, Anamika, OD [address] [place], [place] [phone] documented as of this encounter Visit Diagnoses Not on filedocumented in this encounter Care Teams Manager Product Support Relationship Specialty Start Date End Date Sanaz Pope MD [address] [place] [address] PCP - General Family Medicine 10/13/21 documented as of this encounter
--- OUTSIDE RECORDS SUMMARY | 2024-03-25 16:30 | XMS_ITS | Clinical Summary ---
Author Organization [employer] Address 75 [facility] 7t [place] [address] Care Team Providers Care Ambulette Driver Name Role Phone Sanaz Pope MD Primary Care Provider [phone] Allergies No known active allergies Medications fluticasone (Flonase) 50 MCG/ACT nasal spray Administer 2 sprays into each nostril 1 (one) time each day. 022 Active loratadine (Claritin) 10 MG tablet Take 1 tablet by mouth if needed each day. 021 Active witch tabitha-glycerin (Tucks) pad Apply 1 each topically if needed. Use as directed 021 Active Respiratory Therapy Supplies (Nebulizer/Tubing /Mouthpiece) kit Act joseph Blood Pressure kit Medium and Large Cuff Active fluticasone (Flovent) 110 MCG/ACT inhaler Inhale 2 puffs every 12 (twelve) hours. Rinse mouth out afterwards 36 g 1 023 Active lisinopril 20 MG tabletIndications :Essential hypertension Take 1 tablet (20 mg) by mouth Once per day. 90 tablet 3 024 Active omeprazole (PriLOSEC) [address] capsule Take 1 capsule (20 mg) by mouth in the morning. 90 capsule 3 024 Active meloxicam (Mobic) 7.5 MG tablet Take 1 tablet (7.5 mg) by mouth Once per day. For arthritis 90 tablet 3 024 2024 Active cromolyn (Opticrom) 4 % ophthalmic solutionIndicatio ns:Allergic conjunctivitis of both eyes 1-2 drops to the both eyes 4x/day for 7 days (Thai label please) 10 mL 024 Active risperiDONE (RisperDAL) 1 MG tabletIndications :Anxiety TAKE 1 TABLET BY MOUTH AT BEDTIME 90 tablet 024 Active simvastatin (Zocor) 20 MG tabletIndications :Hyperlipidemia, unspecified hyperlipidemia type Take 1 tablet (20 mg) by mouth Once per day. 90 tablet 024 Active Acetaminophen Extra Strength 500 MG tabletIndications :Unilateral primary osteoarthritis, right knee,Pain in right knee TAKE 2 TABLETS BY MOUTH EVERY 8 HOURS NEEDED FOR PAIN 180 tablet 3 024 Active D3 Super Strength 50 MCG (2000 UT) capsule Take 50 mcg by mouth Once per day. 024 Active SUMAtriptan (Imitrex) 25 MG tablet Take 1 tablet (25 mg) by mouth 1 (one) time if needed for migraine for up to 36 doses. May repeat dose once in 2 hours if no relief. Do not exceed 2 doses in 24 hours. 9 tablet 3 024 Active Diclofenac Sodium 1 % gel APPLY TOPICALLY TO THE AFFECTED AREA(S) TWICE DAILY IN THE MORNING AND AT BEDTIME NEEDED FOR PAIN 100 g 1 024 Active doxycycline (Vibramycin) 100 MG capsuleIndication s:PID (acute pelvic inflammatory disease) Take 1 capsule (100 mg) by mouth 2 times daily for 14 days. Take with at least 8 ounces (large glass) of water, do not lie down for 30 minutes after 28 capsule 025 2024 Active metroNIDAZOLE (Flagyl) 500 MG tabletIndications :PID (acute pelvic inflammatory disease) Take 1 tablet (500 mg) by mouth 2 times daily for 14 days. 28 tablet 025 2024 Active albuterol 108 (90 Base) MCG/ACT inhaler Inhale 2 puffs every 4 (four) hours if needed for shortness of breath. Every 4-6 hours as needed 18 g 11 025 Active albuterol 108 (90 Base) MCG/ACT inhaler Inhale 2 puffs every 4 (four) hours if needed. Every 4-6 hours as needed 021 2024 Discontinued(R eorder (will not trigger notification to Pharmacy)) doxycycline (Vibramycin) 100 MG capsuleIndication s:PID (acute pelvic inflammatory disease) Take 1 capsule (100 mg) by mouth 2 times daily for 10 days. Take with at least 8 ounces (large glass) of water, do not lie down for 30 minutes after 20 capsule 025 2024 Discontinued metroNIDAZOLE (Flagyl) 500 MG tabletIndications :PID (acute pelvic inflammatory disease) Take 1 tablet (500 mg) by mouth 2 times daily for 10 days. 20 tablet 025 2024 Discontinued Hospital, Clinic, or Other Facility [...] including low back and hips Following with [facility] Pain Management. Previously w/ COT, not currently. [...] three times a day as needed Continue DENTAL FRONT OFFICE ASSISTANT appointments followup with Pain Mgmt for other treatment modalities Assessment & Plan (02/08/2022 11:47 AM EST): continue Tramadol 50mg three times a day as needed Continue DENTAL FRONT OFFICE ASSISTANT appointments followup with Pain Mgmt to see if they can offer her the implantable device Encounters Date Type Department Care Team Description 03/25/2024 3:30 PM EST Office Visit [facility] [address] [place] [phone] Sanaz Pope MD Sexually transmitted infection (Primary Dx); Mild persistent asthma without complication; Essential hypertension 03/25/2024 Travel 03/21/2024 Telephone [facility] [address] [place] [phone] Sanaz Pope MD Reschedule Appointment 03/21/2024 Telephone [facility] [address] [place] [phone] Velma Yung MD 03/21/2024 Travel 03/19/2024 5:40 PM EST Office Visit [facility] [address] [place] [phone] Velma Yung MD Pelvic pain (Primary Dx); PID (acute pelvic inflammatory disease) 01/29/[address] [address] Sanaz Pope MD 01/24/[address] [address] Sanaz Pope MD 01/21/2024 Orders Only [address] [phone] Sanaz Pope MD Mixed conductive and sensorineural [...] Sign Reading Time Taken Comments Blood Pressure 134/95 03/25/2024 3:30 PM EST Pulse 79 03/25/2024 3:30 PM EST Temperature 36 ??C (96.8 ??F) 03/25/2024 3:30 PM EST Respiratory Rate 17 03/25/2024 3:30 PM EST Oxygen Saturation 96% 03/19/2024 5:33 PM EST Inhaled Oxygen Concentration - - Weight 72.9 kg (160 lb 12.8 oz) 025 3:30 PM EST Height 147.3 cm (4' 10 ) 03/25/2024 3:30 PM EST Body Mass Index 33.61 03/25/2024 3:30 PM EST Plan of Treatment Upcoming Encounters Date Type Department Care Team (Late st Contact Info) Description 04/05/2024 10:30 AM EST Office Visit [facility] OPTOMETRY [address] [place] [address] Lucien, Anamika, OD [address] [place] [address] Health Maintenance Due Date Last Done Comments CT Colonography 1959 FIT DNA/Cologuard 1959 FIT 1959 FOBT 1959 Sigmoidoscopy 1959 Alcohol/Substance Use Screening 1971 Dental Prophylaxis 05/13/2010 11/12/2009 Dental X-Ray: Bitewings 06/16/2010 06/15/2009 Dental Oral Exam 02/03/2017 08/03/2016, 08/03/2016 RSV Patients and Patients Aged 60 years or older (1 - Risk 60-74 years 1-dose series) 2019 Dental X-Ray: Full Mouth 08/05/2019 08/03/2016, 050 04/2009 Mammogram 06/16/2023 06/15/2021, 110 06/2018, 09/13/2017 Depression Monitoring (PHQ-9) 01/07/2024 07/07/2023, 07/07/2023 Depression Screening 07/06/2024 07/07/2023, 07/07/19 SDOH Screening 11/07/2024 11/08/2023 Tobacco Screening 03/25/2025 03/25/2024 Cervical Cancer Screening 07/21/2025 HPV/Cotest 07/21/2025 07/21/2020 [...] (03/19/2024 5:53 PM EST) Color Urine Yellow [facility] Appearance Urine Clear [facility] PH 6.5 5.0 - 9.0 [facility] Glucose Urine UA Negative Negative mg/dL [facility] Urine Blood Negative Negative [facility] Specific Leckrone - Urine 1.025 1.005 - 1.025 [facility] Urine Protein Negative Neg-Trace mg/dL [facility] Urine Ketones Negative Negative mg/dL [facility] Nitrite Urine Negative Negative [facility] Leukocyte Esterase Urine Negative Negative [facility] RBC Urine 0-2 0 - 2 /HPF [facility] Urine WBC 0-5 0 - 5 /HPF [facility] Urine Squamous Epithelial Cell 0-2 0 - 2 /HPF [facility] Urine Bacteria None Seen None Seen [facility] Hyaline Casts, Urine 0-2 0 - 2 /LPF [facility] Urine Urine specimen obtained by clean catch procedure / Unknown 03/19/2024 5:53 PM EST 03/20/2024 11:27 AM EST Narrative [facility] - 03/20/2024 11:51 AM EST Urine, Clean Catch Velma Yung MD LAB URINE ORDERABLES Final Result [facility] [address] [place] [phone] * Chlamydia/N. Gonorrhoeae RNA, TMA, Urogenitial (03/19/2024 5:51 PM EST) CT PCR NOT DETECTED Not Detect. [facility] Comment:A not detected test result does [...] psychologicalconsequences. NG PCR NOT DETECTED Not Detect. [facility] Comment:A not detected test result does [...] PM EST 03/20/2024 11:56 AM EST Narrative [facility] - 03/20/2024 2:05 PM EST Vaginal Velma Yung MD LAB MICROBIOLOGY - GENERAL ORDERABLES Final Result [facility] [address] [place] [phone] * POCT Urinalysis (03/19/2024 5:42 PM [...] Real- Time PCR (11/08/2023 3:33 PM EDT) Hepatitis C Antibody Reactive( A) Nonreactive [facility] Comment:Presumptive evidence of antibodies to HCV. Blood Venous blood specimen / Unknown 11/08/2023 3:33 PM EDT 11/08/2023 4:21 PM EDT Sanaz Pope MD LAB BLOOD ORDERABLES Final Res ult Performing Organization Address [facility] de Phone Number [facility] [address] [place] [phone] * Lipid Panel, Standard (07/07/2023 11:28 AM EDT) Triglycerides 111 <150 mg/dL [facility] Comment:Desirable Triglyceri de: less than 150 mg/dLBorderline High Triglyceride 150-199 mg/dLHigh Triglyceride: 200-499 mg/dLVery High Triglyceride: greater than or equal to 5OO mg/dL Cholesterol 127 <200 mg/dL [facility] Comment:Desirable Cholestero l: less than 200 mg/dLBorderline High Cholesterol: 200-239 mg/dLHigh Cholesterol: greater than 239 mg/dL LDL Cholesterol Calculated 57 <100 mg/dL [facility] Comment:Desirable LDL: less than 100 mg/dLNear Optimal/Above Optimal LDL: 110- 129 mg/dLBorderline High LDL: 130-159 mg/dLHigh LDL: 160-189 mg/dLVery High LDL: greater than or equal to 190 mg/dL HDL Cholesterol 48 >40 mg/dL [facility] Comment:Desirable HDL: great er than 40 mg/dL Note: This HDL assay may give artificially low results in patients with liver disease. Blood Venous blood specimen / Unknown 07/07/2023 11:28 AM EDT 07/07/2023 1:13 PM EDT Sanaz Pope MD LAB BLOOD ORDERABLES Final Res ult Performing Organization Address [facility]/ZIP Co de Phone Number [facility] [address] [place] [phone] * Hm Colonoscopy (08/09/2021 3:46 PM [...] result details Legacy Procedure: Mammography Report 1 us Kayla Resendez HARVESTING MANAGER IMG BI PROCEDURES Final Result * THINPREP PAP (07/21/2020 1:07 PM EDT) Clinical Information: None given [facility] COMMENT SEE COMMENT [facility] [...] historic and ?? current clinical information. ?? Switchboard Inspector: SEE COMMENT [facility] Comment: RXB, CT(ASCP) CT screening location: [address] ??[phone] Interpretation/Res ult: SEE COMMENT [facility] Comment: Negative for intraepithelial lesion or malignancy. Atrophic pattern; predominantly parabasal cells LMP: NONE GIVEN [facility] Prev. BX: NONE GIVEN [facility] Prev. PAP: NONE GIVEN [facility] SOURCE: None given [facility] Statement Of Adequacy: SATISFACTORY FOR EVALUATION [facility] 07/21/2020 1:07 PM EDT us Taryn Huang INFORMATION TECHNOLOGY COORDINATOR LAB PATHOLOGY ORDERABLES Fi nal Result [facility] [address] * HPV mRNA E6/E7 (07/21/2020 1:07 PM EDT) HPV nRNA E6/E7 Not Detected Not Detected [facility] Comment: Methodology: Retail Business Manager-Mediated Amplification This assay detects E6/E7 viral messenger RNA (mRNA) from 14 high-risk HPV types (16,18,31,33,35,39,45,51,52,56,58,59,66,68). ? The analytical performance characteristics of this assay have been determined by [employer]. The modifications have not been cleared or approved by the FDA. This assay has been validated pursuant to the CLIA regulations and is used for clinical purposes. ?? For additional information, please refer to http://education.Taodangpu/faq/QDV340p9 (This link if provided for information/ educational purposes only.) 07/21/2020 1:07 PM EDT us Taryn Huang INFORMATION TECHNOLOGY COORDINATOR LAB BLOOD ORDERABLES Final Result Performing Organization Address City/State/[facility] Co de Phone Number [facility] [address] from Last 3 Months or Most Recently Relevant to Health Maintenance Insurance [facility] STANDARD Care Teams Ambulette Driver Relationship Specialty Start Date End Date Sanaz Pope MD [address] [place] [phone] PCP - General Family Medicine 10/13/21
--- OUTSIDE RECORDS SUMMARY | 2024-03-25 16:30 | XMS_ITS | Encounter Summary ---
Author Organization [employer] Address [address] [facility] 7t [place] [address] Care Team Providers Care Veneer Cutter Name Role Phone Sanaz Pope MD Primary Care Provider [phone] Reason for Visit * Reason Onset Date Comments Reschedule Appointment 03/21/2024 Encounter Details Date Type Department Care Team ([facility] st Contact Info) Description 03/21/2024 Telephone [facility] [address] [place], [place] [phone] Sanaz Pope MD [address] [place], [place] [phone] Reschedule Appointment Social History Tobacco Use Types Packs/Day Years [...] encounter Miscellaneous Notes * Telephone Encounter - Martha Blank - 03/21/2024 10:41 AM EST Incoming call from patient. Patient states her phone was on silent in addition that is why she was unable to be reached. Patient reports she started her antibiotics on 03/20/24, symptoms are improving however she is unable to attend today's appt due to the inclement weather. Patient walks to her appts. Patient has requested to follow up with PCP. [employer] was able to schedule patient for Monday03/25/24 @ 3:30pm with PCP. Patient verbalized agreement. [employer] Regional D[employer] informed Walk In Coordinator Of Online Programs who isalso in agreement. documented in this encounter Plan of Treatment Upcoming Encounters Date Type Department Care Team (Late st Contact Info) Description 04/05/2024 10:30 AM EST Office Visit [facility] OPTOMETRY [address] [place] [address] Anamika Mcgraw, OD [address] [place] [address] documented as of this encounter Visit Diagnoses Not on filedocumented in this encounter Additional Health Concerns Assessment Noted Time PHQ-9 Depression Total Score: 11 024 11:56 AM EDT documented as of this encounter Care Teams Veneer Cutter Relationship Specialty Start Date End Date Sanaz Pope MD [address] [place] [address] PCP - General Family Medicine 10/13/21 documented as of this encounter
--- OUTSIDE RECORDS SUMMARY | 2024-03-25 16:30 | XMS_ITS | Encounter Summary ---
Author Organization [employer] Address [address] [facility] 7t [place] [address] Care Team Providers Care Lube Technician Name Role Phone Sanaz Pope MD Primary Care Provider [phone] Encounter Details Date Type Department Care Team (Late st Contact Info) Description 03/07/2023 Orders Only [facility] [address] [place], [place] [phone] Sanaz Pope MD [address] [place], [place] [phone] Primary osteoarthritis involving multiple joints (Primary Dx) [...] Description 04/05/2024 10:30 AM EST Office Visit [facility] OPTOMETRY [address] [place] [address] Anamika Mcgraw, OD [address] [place] [address] documented as of this encounter Visit Diagnoses Diagnosis Primary osteoarthritis involving multiple joints- Primary documented in this encounter Care Teams Lube Technician Relationship Specialty Start Date End Date Sanaz Pope MD [address] [place] [address] PCP - General Family Medicine 10/13/21 documented as of this encounter
--- OUTSIDE RECORDS SUMMARY | 2024-03-25 16:30 | XMS_ITS | Encounter Summary ---
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 TC via P/I#[id number], someone answered call X2, each time hanging up after I was introduced. Called back a 3rd time, no answer. L/M stating she needs to call back to reschedule her PRODUCTION WORKER appt she NCNS for 08/04/22. Phone number provided. Will send message to PCP requesting hold on Tramadol RX until she reschedules PRODUCTION WORKER RV appt. documented in this encounter Plan of Treatment Upcoming Encounters Date Type Department Care Team (Late st Contact Info) Description 04/05/2024 10:30 AM EST Office Visit [facility] OPTOMETRY [address] [place], [place] [phone] Anamika Mcgraw, OD [address] [place] [address] documented as of this encounter Visit Diagnoses Diagnosis Cervicalgia documented in this encounter Care Teams Salesperson Books Relationship Specialty Start Date End Date Sanaz Pope MD [address] [place] [address] PCP - General Family Medicine 10/13/21 documented as of this encounter
--- OUTSIDE RECORDS SUMMARY | 2024-03-25 16:30 | XMS_ITS | Encounter Summary ---
Author Organization [employer] Address [address] [facility] [address] 7t [place] [address] Care Team Providers Care Seo Specialist Name Role Phone Sanaz Pope MD Primary Care Provider [phone] Encounter Details Date Type Department Care Team (Latest Contact Info) Description 03/25/2024 Travel Social History Tobacco Use Types Packs/Day Years [...] 10:30 AM EST Office Visit [facility] OPTOMETRY [address] [place], [place] [phone] Anamika Mcgraw, OD [address] [place] [address] documented as of this encounter Visit Diagnoses Not on filedocumented in this encounter Additional Health Concerns Assessment Noted Time PHQ-9 Depression Total Score: 11 024 11:56 AM EDT documented as of this encounter Care Teams Seo Specialist Relationship Specialty Start Date End Date Sanaz Pope MD [address] [place], [place] [phone] PCP - General Family Medicine 10/13/21 documented as of this encounter
--- OUTSIDE RECORDS SUMMARY | 2024-03-25 16:30 | XMS_ITS | Encounter Summary ---
Author Organization [employer] Address 75 [facility] 7t [place] [address] Care Team Providers Care Neurology Tech Name Role Phone Sanaz Pope MD Primary Care Provider [phone] Encounter Details Date Type Department Care Team (Late st Contact Info) Description 06/22/2023 Orders Only [facility] [address] [place], [place] [phone] ProviderAlisa MD Social History Tobacco Use Types [...] 10:30 AM EST Office Visit [facility] [address] [place], [place] [phone] Anamika Mcgraw, OD [address] [place] [address] documented as of this encounter Procedures Procedure Name Priority Date/Time Associated Diagnosis Comments HM COLONOSCOPY Routine 08/09/2021 3:46 PM EDT documented in this encounter Results * Hm Colonoscopy (08/09/2021 3:46 PM EDT) Historical Provider HEALTH MAINTENANCE Final Result documented in this encounter Visit Diagnoses Not on filedocumented in this encounter Care Teams Neurology Tech Relationship Specialty Start Date End Date Sanaz Pope MD [address] [place] [address] PCP - General Family Medicine 10/13/21 documented as of this encounter
--- OUTSIDE RECORDS SUMMARY | 2024-03-25 16:30 | XMS_ITS | Encounter Summary ---
Author Organization [employer] Address 75 [facility] 7t [place] [address] Care Team Providers Care Awning Craftsperson Name Role Phone Sanaz Pope MD Primary Care Provider [phone] Encounter Details Date Type Department Care Team ([facility] st Contact Info) Description 03/25/2024 3:30 PM EST Office Visit [facility] MEDICINE [address] [place], [place] [phone] Sanaz Pope MD [address] [place], [place] [phone] Sexually transmitted infection (Primary Dx); Mild persistent asthma without complication; Essential hypertension Social History Tobacco Use Types Packs/Day Years [...] housing situation today? I have alvertoyoung faustin 11/08/[address] [...] 17 03/25/2024 3:30 PM EST Oxygen Saturation - - Inhaled Oxygen Concentration - - Weight 72.9 kg (160 lb 12.8 oz) 03/25/2024 3:30 PM EST Height 147.3 cm (4' 10 ) 03/25/2024 3:30 PM EST Body Mass Index 33.61 03/25/2024 3:30 PM EST documented in this encounter Plan of Treatment Upcoming Encounters Date Type Department Care Team (Late st Contact Info) Description 04/05/2024 10:30 AM EST Office Visit [facility] OPTOMETRY [address] [place] [address] Lucien, Anamika, OD [address] [place] [address] Scheduled Orders Name Type Priority Associated Diagnoses Orde r Schedule Lipid Panel, Standard Lab Routine Essential hypertension Expected: 03/25/2024 (Approximate), Expires: 03/25/2025 HIV-1/2 Antigen and Antibodies, Fourth Generation, with Reflexes Lab Routine Sexually transmitted infection Expected: 03/25/2024 (Approximate), Expires: 03/25/2025 RPR (Monitor) with Reflex to??Titer Lab Routine Sexually transmitted infection Expected: 03/25/2024, Expires: 03/25/2025 Hepatitis C Antibody with Reflex to HCV, RNA, Quantitative, Real-Time PCR Lab Routine Sexually transmitted infection Expected: 03/25/2024, Expires: 03/25/2025 Hemoglobin A1c Lab Routine Essential hypertension Expected: 03/25/2024 (Approximate), Expires: 03/25/2025 documented as of this encounter Visit Diagnoses Diagnosis Sexually transmitted infection- Primary Mild persistent asthma without complication Essential hypertension Unspecified essential hypertension documented in this encounter Additional Health Concerns Assessment Noted Time PHQ-9 Depression Total Score: 11 024 11:56 AM EDT documented as of this encounter Care Teams Awning Craftsperson Relationship Specialty Start Date End Date Sanaz Pope MD [address] [place] [phone] PCP - General Family Medicine 10/13/21 documented as of this encounter
--- OUTSIDE RECORDS SUMMARY | 2024-03-25 16:30 | XMS_ITS | Encounter Summary ---
Author Organization [employer] Address 75 [facility] [address]t [place] [address] Care Team Providers Care Search Marketing Coordinator Name Role Phone Sanaz Pope MD Primary Care Provider [phone] Encounter Details Date Type Department Care Team ([facility] st Contact Info) Description 03/07/2023 Orders Only [facility] [address] [place], [place] [phone] Sanaz Pope MD [address] [place], [place] [phone] Social History Tobacco Use Types Packs/Day Years [...] Visit [facility] OPTOMETRY [address] [place] [address] Anamika Mcgraw, OD [address] [place] [address] documented as of this encounter Visit Diagnoses Not on filedocumented in this encounter Care Teams Search Marketing Coordinator Relationship Specialty Start Date End Date Sanaz Pope MD [address] [place] [address] PCP - General Family Medicine 10/13/21 documented as of this encounter
--- OUTSIDE RECORDS SUMMARY | 2024-03-25 16:30 | XMS_ITS | Encounter Summary ---
Author Organization [employer] Address [address] [facility] [address]t [place] [address] Care Team Providers Care Physician/Internist Name Role Phone Sanaz Pope MD Primary Care Provider [phone] Encounter Details Date Type Department Care Team (Latest Contact Info) Description 03/21/2024 Travel Social History Tobacco Use Types Packs/Day [...] Visit [facility] OPTOMETRY [address] [place], [place] [phone] Anamika Mcgraw, OD [address] [place] [address] documented as of this encounter Visit Diagnoses Not on filedocumented in this encounter Additional Health Concerns Assessment Noted Time PHQ-9 Depression Total Score: 11 024 11:56 AM EDT documented as of this encounter Care Teams Physician/Internist Relationship Specialty Start Date End Date Sanaz Pope MD [address] [place], [place] [phone] PCP - General Family Medicine 10/13/21 documented as of this encounter
[2024-03-25 18:15] LABS: Cholesterol 102 mg/dL (<200); HDL Cholesterol 43 mg/dL (>40); LDL Cholesterol Calculated 44 mg/dL (<100); Triglycerides 79 mg/dL (<150)
[2024-03-26 04:41] LABS: HIV AB/AG Nonreactive (Nonreactive); HIV Num 1 0.08 S/CO (0.00-0.99); ~Hepatitis C Antibody Reactive (Nonreactive)
[2024-03-26 05:19] LABS: Estimated Average Glucose 114 mg/dL; Hemoglobin A1C 111.7408 umol/L; Hemoglobin A1c % 5.6 % (<6.0); Total Hemoglobin (HGBA1C) 2943.8844 umol/L
[2024-03-27 12:28] LABS: RPR Rapid Plasma Reagin NON-REACTIVE (NON-REACTIVE)
[2024-03-28 16:04] LABS: HCV Log PCR <1.18 NOT DETECTED Log IU/mL (NOT DETECTED); HepC Viral Load <15 NOT DETECTED IU/mL (NOT DETECTED)
== END 2024-03-25 15:48 | disposition home or self-care (01) ==
LOC: HO.HHCL 15:47
PROVIDERS: Visit Provider General Practice
DX: A64 Unspecified sexually transmitted disease (principal); I10 Essential (primary) hypertension
CPT/HCPCS: 36415; 80061; 83036; 86592; 86803; 87389; 87522

== ENCOUNTER 2024-11-08 10:15 | Outpatient (REF) | payer MEDICAID, SELFPAY ==
--- OUTSIDE RECORDS SUMMARY | 2024-11-08 09:45 | XMS_ITS | Encounter Summary ---
Author Organization [employer] Address 75 [facility] 7t [place] [address] Care Team Providers Care Agricultural And Forestry Supervisor Name Role Phone Sanaz Pope MD Primary Care Provider [phone] Reason for Referral * Medications - Closed Specialty Diagnoses / Procedures Referred By Ludwig dominguez Referred To Contact Diagnoses Osteoarthritis, unspecified osteoarthritis type, unspecified site Dona Guzman NP [address] [place] [address] Phone: tel: fax: Referral ID Status Reason Start Date Expiration Date Visits Re quested Visits Authorized [id number] Closed 1 1 * Consultation (Routine) - Pending Review Specialty Diagnoses / Procedures Referred By Ludwig dominguez Referred To Contact Orthopaedic Surgery Diagnoses Osteoarthritis, unspecified osteoarthritis type, unspecified site Arthritis of knee Dona Guzman NP [address] [place] [address] Phone: tel: fax: Referral ID Status Reason Start Date Expiration Date Visits Requested Visits Authorized [id number] Pending Review Specialty Services Required 11/08/2024 11/08/2025 1 1 Encounter Details Date Type Department Care Team (Latest Contact Info) Description 11/08/2024 9:45 AM EDT Office Visit [facility] MEDICINE [address] [place] [address] Dona Guzman NP [address] [place], [place] [phone] Osteoarthritis, unspecified osteoarthritis type, unspecified site (Primary Dx); Essential hypertension; Arthritis of knee; Hypertension, unspecified type Social History Tobacco Use Types Packs/Day Years Used Date Smoking Tobacco: Never Passive Smoke Exposure: Never Smokeless Tobacco: Never Alcohol Use Standard Drinks/Week Comments Never 0 (1 standard drink = 0.6 oz pur e alcohol) Depression Answer Date Recorded Patient Health Questionnaire-9 Score 5 10/12/2024 Patient Health Questionnaire-9 Score 5 10/12/2024 Last PHQ-9: Questionnaire Data Not on file 0 10/12/2024 Housing Stability Answer Date Recorded What is [...] got money to buy more: Never True 07/23/2024 Within the past 12 months,th e food you bought just didn't last and you didn't have enough money to get more: Never True 11/2024 Transportation Answer Date Recorded In the past 12 months, has l ack of transportation kept you from medical appts, meetings, work or from getting things needed for daily living? Yes, it has kept me from non-medical meetings, work, or getting things that I need 07/23/2024 Utilities Answer Date Recorded In the past 12 months, has t he electric, gas, oil or water company threatened to shut off services in your home? No 11/08/2023 Depression Answer Date Recorded Patient Health Questionnaire-2 Score 2 10/12/2024 Internet Access Answer Date Recorded Internet Access [...] Sign Reading Time Taken Comments Blood Pressure 182/90 11/08/2024 9:46 AM EDT Pulse 76 11/08/2024 9:46 AM EDT Temperature 36.7 C (98 F) 11/08/2024 9:46 AM EDT Respiratory Rate 18 11/08/2024 9:46 AM EDT Oxygen Saturation 97% 11/08/2024 9:46 AM EDT Inhaled Oxygen Concentration - - Weight 67.1 kg (148 lb) 11/08/2024 9:46 AM EDT Height 150.1 cm (4' 11.11 ) 11/08/2024 9:46 AM E DT Body Mass Index 29.79 11/08/2024 9:46 AM EDT documented in this encounter Miscellaneous Notes * Assessment & Plan Note - Dona Guzman NP - 11/08/2024 9:45 AM EDTAssociated Problem(s): Essential hypertension Orders: lisinopril 20 MG tablet; Take 1 tablet (20 mg) by mouth Once per day. * Assessment & Plan Note - Dona Guzman NP - 11/08/2024 9:45 AM EDTAssociated Problem(s): Osteoarthritis Orders: Referral to Orthopaedic Surgery; Future lidocaine (Lidoderm) 5 % patch; Apply 1 patch topically Once per day. Remove & discard patch within 12 hours or as directed by MD. * Assessment & Plan Note - Dona Guzman NP - 11/08/2024 9:45 AM EDTAssociated Problem(s): Arthritis of knee Orders: Referral to Orthopaedic Surgery; Future * Assessment & Plan Note - Dona Guzman NP - 11/08/2024 9:45 AM EDTAssociated Problem(s): Hypertension Orders: Hemoglobin A1c; Future Comprehensive Metabolic Panel; Future Lipid Panel, Standard; Future documented in this encounter Plan of Treatment Upcoming Encounters Date Type Department Care Team (Late st Contact Info) Description 11/11/2024 10:45 AM EDT Office Visit [facility] MEDICINE [address] [place] [address] Scheduled Orders Name Type Priority Associated Diagnoses Orde r Schedule Hemoglobin A1c Lab Routine Hypertension, unspecified type Expected: 11/08/2024 (Approximate), Expires: 11/08/2025 Comprehensive Metabolic Panel Lab Routine Hypertension, unspecified type Expected: 11/08/2024 (Approximate), Expires: 11/08/2025 Lipid Panel, Standard Lab Routine Hypertension, unspecified type Expected: 11/08/2024 (Approximate), Expires: 11/08/2025 Scheduled Referrals Name Type Priority Associated Diagnoses Orde r Schedule Referral to Orthopaedic Surgery Outpatient Referral Routine Osteoarthritis, unspecified osteoarthritis type, unspecified site Arthritis of knee Expected: 11/08/2024 (Approximate), Expires: 11/08/2025 documented as of this encounter Visit Diagnoses Diagnosis Osteoarthritis, unspecified osteoarthritis type, unspecified site- Primary Essential hypertension Unspecified essential hypertension Arthritis of knee Unspecified arthropathy, lower leg Hypertension, unspecified type documented in this encounter Additional Health Concerns Assessment Noted Time PHQ-9 Depression Total Score: 5 10/13/19 25 4:52 PM EDT documented as of this encounter Care Teams Agricultural And Forestry Supervisor Relationship Specialty Start Date End Date Sanaz Pope MD [address] [place] [address] PCP - General Family Medicine 10/13/21 documented as of this encounter
--- OUTSIDE RECORDS SUMMARY | 2024-11-08 11:30 | XMS_ITS | Encounter Summary ---
Author Organization [employer] Address [address] [facility] [facility] [address] 7[address] [place] [address] Care Team Providers Care Consumer Services Advisor Name Role Phone Sanaz Pope MD Primary Care Provider [phone] Encounter Details Date Type Department Care Team (Latest Contact Info) Description 11/08/2024 Travel Social History Tobacco Use Types Packs/Day [...] Description 11/11/2024 10:45 AM EDT Office Visit [facility] MEDICINE [address] [place] [address] documented as of this encounter Visit Diagnoses Not on filedocumented in this encounter Additional Health Concerns Assessment Noted Time PHQ-9 Depression Total Score: 5 10/13/19 25 4:52 PM EDT documented as of this encounter Care Teams Consumer Services Advisor Relationship Specialty Start Date End Date Sanaz Pope MD [address] [place] [address] PCP - General Family Medicine 10/13/21 documented as of this encounter
--- OUTSIDE RECORDS SUMMARY | 2024-11-08 11:30 | XMS_ITS | Encounter Summary ---
Author Organization [employer] Address 75 [facility] 7t [place] [address] Care Team Providers Care Ship Loader Name Role Phone Sanaz Pope MD Primary Care Provider [phone] Encounter Details Date Type Department Care Team ([facility] Contact Info) Description 02/09/2022 Orders Only [facility] MEDICINE [address] [place] [phone] Sanaz Pope MD [address] [place] [address] [phone] Hyperlipidemia, unspecified hyperlipidemia type (Primary Dx) Social [...] Encounters Date Type Department Care Team (Late Contact Info) Description 11/11/2024 10:45 AM EDT Office Visit [facility] MEDICINE [address] [place] [address] [phone] documented as of this encounter Procedures Procedure [...] Dimer High Sensitivity (08/12/2022 9:52 PM EDT) [facility] D Dimer High Sensitivity 176 NG/ML [facility] Comment:D-DIMER HS REFERENCE RANGENote: Our assay reports D-Dimer Units (D- DU).The cut-off value for venous thromboembolic (VTE) disease is230 ng/mL. This value has a very high negative predictivevalue when the patient has a low to moderate clinicalprobability of VTE.The upper limit of normal is 243 ng/mL. 08/12/2022 9:52 PM EDT 08/12/2022 9:57 PM EDT us [facility] External Provider LAB BLO OD ORDERABLES Final Result [facility] [address] [place] [phone] * High Sensitivity Troponin I (08/12/2022 9:52 PM EDT) [facility] TROPONIN I HIGH SENSITIVITY <2.7 <3.5 - 17.0 ng/L [facility] Comment:The Mcgarry high sens itivity Troponin-I results should beused in conjunction with other diagnostic information suchas ECG, clinical observations and information, and patientsymptoms to aid in the diagnosis of AR. 08/12/2022 9:52 PM EDT 08/12/2022 9:57 PM EDT [facility] External Provider LAB BLO OD ORDERABLES Final Result Performing Organization Address [facility] Co de Phone Number [facility] [address] [place] [phone] * High Sensitivity Troponin I (08/12/2022 6:56 PM EDT) [facility] TROPONIN I HIGH SENSITIVITY <2.7 <3.5 - 17.0 ng/L [facility] Comment:The Mcgarry high sens itivity Troponin-I results should beused in conjunction with other diagnostic information suchas ECG, clinical observations and information, and patientsymptoms to aid in the diagnosis of AR. 08/12/2022 6:56 PM EDT 08/12/2022 6:59 PM EDT [facility] External Provider LAB BLO OD ORDERABLES Final Result Performing Organization Address City/[facility] Co de Phone Number [facility] [address] [place] [phone] * Hepatic Function Panel (08/12/2022 6:56 PM EDT) [facility] Bilirubin, Total 0.3 0.0 - 1.0 mg/dL [facility] Bilirubin, Direct 0.1 0.0 - 0.5 mg/dL [facility] Aspartate Amino Transferase 20 5 - 31 U/L [facility] Alanine Aminotransferase 15 0 - 31 U/L [facility] Total Protein 6.7 6.5 - 8.0 g/dL [facility] Albumin Level 4.0 3.5 - 5.0 g/dL [facility] Alkaline Phosphatase 66 39 - 117 U/L [facility] 08/12/2022 6:56 PM EDT 08/12/2022 6:59 PM EDT us [facility] External Provider LAB BLO OD ORDERABLES Final Result [facility] [address] [place] [phone] * (ABNORMAL) CBC auto differential (08/12/2022 6:56 PM EDT) White Blood Count 5.9 4.8 - 10.8 X10*3/uL [facility] Red Blood Count 4.20 4.20 - 5.50 X10*6/uL [facility] Hemoglobin 11.2(L) 12.0 - 16.0 g/dl [facility] Hematocrit 35.1(L) 37.0 - 47.0 % [facility] Mean Corpuscular Volume 83.6 80.0 - 98.0 fL [facility] Mean Corpuscular Hemoglobin 26.7(L) 27.0 - 33.0 pg [facility] Mean Corpuscular HGB Conc 31.9 31.0 - 35.0 g/dl [facility] Red Cell Distribution Width 14.6 11.0 - 16.0 % [facility] Platelet Count 163 160 - 400 X10*3/uL [facility] Mean Platelet Volume 11.4 9.4 - 12.3 fL [facility] Neutrophils Percent Auto 71.6 45 - 73 % [facility] Imm Gran Pct Auto 0.2 0.0 - 0.4 % [facility] Lymphocytes Percent Auto 20.7 20 - 40 % [facility] Monocytes Percent Auto 6.1 2 - 11 % [facility] Eosinophils Percent Auto 0.9 0 - 4 % [facility] Basophils Percent Auto 0.5 0 - 2 % [facility] NRBC Pct Auto 0.0 0.0 - 0.2 /100WBC [facility] Neutrophils Absolute Auto 4.2 2.0 - 8.3 x10*3/uL [facility] Imm Gran Abs Auto 0.01 0.00 - 0.03 X10*3/uL [facility] Lymphocytes Absolute Auto 1.2 1.2 - 4.9 X10*3/uL [facility] Monocytes Absolute Auto 0.4 0.1 - 1.2 X10*3/uL [facility] Eosinophils Absolute Auto 0.1 0.0 - 0.4 X10*3/uL [facility] Basophils Absolute Auto 0.0 0.0 - 0.2 X10*3/uL [facility] NRBC Abs Auto 0.000 0.0 - 0.012 X10*3/uL [facility] 08/12/2022 6:56 PM EDT 08/12/2022 7:29 PM EDT [facility] External Provider LAB BLO OD ORDERABLES Final Result Performing Organization Address City/[facility]/ZIP Co de Phone Number [facility] [address] [place] [phone] * Ethanol (08/12/2022 6:56 PM EDT) ETHANOL (MG/DL) IN SER/PLAS 21 mg/dL [facility] Comment:Serum/plasma ethanol results are to be used formedical/treatment purposes only. 08/12/2022 6:56 PM EDT 08/12/2022 6:59 PM EDT [facility] External Provider LAB BLO OD ORDERABLES Final Result Performing Organization Address [facility]/ZIP Co de Phone Number [facility] [address] [place] [phone] * (ABNORMAL) Basic Metabolic Panel (08/12/2022 6:56 PM EDT) Sodium 141 135 - 145 mmol/L [facility] Potassium 4.1 3.3 - 5.1 mmol/L [facility] Chloride 107 96 - 108 mmol/L [facility] Carbon Dioxide 25 22 - 29 mmol/L [facility] Anion Gap 13 12 - 20 [facility] Urea Nitrogen (BUN) 17(H) 9 - 16 mg/dL [facility] Creatinine, Serum 0.66 0.5 - 1.4 mg/dL [facility] Creatinine Clr Calc Pharmacy 73.8 [facility] Comment:Provided height and weight: 147.32 cm,72.575 kg.eGFR (calculated from the MDRD study equation) and eCrCl(calculated from the Cockcroft-Gault equation) are based ondifferent parameters and may not yield comparable results.If eCrCl result is absurd, please check patient'sheight/weight. Estimated Glomerular Filt Rate >60 [facility] Comment:NOTE: For -Am erican individuals, multiply the result by 1.210.Chronic Kidney Disease: Estimated GFR < 60 mL/min/[id number] Kidney Disease: Estimated GFR < 15 mL/min/1.73m2 Glucose 132(H) 60 - 115 mg/dL [facility] Calcium 9.8 8.4 - 10.2 mg/dL [facility] 08/12/2022 6:56 PM EDT 08/12/2022 6:59 PM EDT us [facility] External Provider LAB BLO OD ORDERABLES Final Result [facility] [address] [place] [phone] documented in this encounter Visit Diagnoses Diagnosis Hyperlipidemia, unspecified hyperlipidemia type- Primary documented in this encounter Care Teams Ship Loader Relationship Specialty Start Date End Date Sanaz Pope MD [address] [place] [phone] PCP - General Family Medicine 10/13/21 documented as of this encounter
--- OUTSIDE RECORDS SUMMARY | 2024-11-08 11:30 | XMS_ITS | Encounter Summary ---
Author Organization [employer] Address 75 [facility] 7t [place] [address] Care Team Providers Care Chef De Froid Name Role Phone Sanaz Pope MD Primary Care Provider [phone] Reason for Visit * Reason Comments Med Refill Encounter Details Date Type Department Care Team ([facility] st Contact Info) Description 09/20/2022 Refill [facility] MEDICINE [address] [place] [address] Lashawn Martines MD [address] [place] [address] Cervicalgia Social History Tobacco Use Types Packs/Day [...] AM EDT Pt was a NCNS for MACHINING ASSOCIATE RV 08/04/22 and has not rescheduled. TC via P/I#[id number], someone answered call X2, each time hanging up after I was introduced. Called back a 3rd time, no answer. L/M stating she needs to call back to reschedule her MACHINING ASSOCIATE appt she NCNS for 08/04/22. Phone number provided. Will send message to PCP requesting hold on Tramadol RX until she reschedules MACHINING ASSOCIATE RV appt. documented in this encounter Plan of Treatment Upcoming Encounters Date Type Department Care Team ([facility] st Contact Info) Description 11/11/2024 10:45 AM EDT Office Visit [facility] MEDICINE [address] [place] [address] documented as of this encounter Visit Diagnoses Diagnosis Cervicalgia documented in this encounter Care Teams Chef De Froid Relationship Specialty Start Date End Date Sanaz Pope MD [address] [place] [phone] PCP - General Family Medicine 10/13/21 documented as of this encounter
--- OUTSIDE RECORDS SUMMARY | 2024-11-08 11:30 | XMS_ITS | Encounter Summary ---
Author Organization [employer] Address 75 [facility] 7t [place] [address] Care Team Providers Care Rn Orthopaedics Name Role Phone Sanaz Pope MD Primary Care Provider [phone] Reason for Referral * Consultation (Routine) - Closed Specialty Diagnoses / Procedures Referred By Contshahram t Referred To Contact Otolaryngology Diagnoses Mixed conductive and sensorineural hearing loss of both ears Sanaz Pope MD [address] [place] [address] Phone: tel: fax: [facility] [address] Phone: tel: fax: Referral ID Status Reason Start Date Expiration Date V isits Requested Visits Authorized [id number] Closed Specialty Services Required 01/29/2024 01/28/2025 6 6 Encounter Details Date Type Department Care Team (Late st Contact Info) Description 01/21/2024 Orders Only [facility] MEDICINE [address] [place], [place] [phone] Sanaz Pope MD [address] [place], [place] [phone] Mixed conductive and sensorineural hearing loss of [...] Description 11/11/2024 10:45 AM EDT Office Visit [facility] MEDICINE [address] [place] [phone] Scheduled Referrals Name Type Priority Associated Diagnoses [...] documented as of this encounter Care Teams Rn Orthopaedics Relationship Specialty Start Date End Date Sanaz Pope MD [address] [place] [address] PCP - General Family Medicine 10/13/21 documented as of this encounter
--- OUTSIDE RECORDS SUMMARY | 2024-11-08 11:30 | XMS_ITS | Clinical Summary ---
Author Organization [employer] Address [address] [place] [address] [address] [place] [address] Care Team Providers Care Leather Coverer Name Role Phone Sanaz Pope MD Primary Care Provider [phone] Allergies No known active allergies Medications fluticasone [...] out afterwards 36 g 1 023 Active cromolyn (Opticrom) 4 % ophthalmic solutionIndicatio ns:Allergic conjunctivitis of both eyes 1-2 drops to the both eyes 4x/day for 7 days (Urdu label please) 10 mL 024 Active risperiDONE [...] 50 mcg by mouth Once per day. Active albuterol 108 (90 Base) MCG/ACT inhaler Inhale 2 puffs every 4 (four) hours if needed for shortness of breath. Every 4-6 hours as needed 18 g 11 Active omeprazole (PriLOSEC) [address] capsule TAKE 1 CAPSULE BY MOUTH EVERY DAY IN THE MORNING 90 capsule 3 Active meloxicam (Mobic) 7.5 MG tablet TAKE 1 TABLET BY MOUTH EVERY DAY 90 tablet 3 Active Diclofenac Sodium 1 % gel APPLY TOPICALLY TO THE AFFECTED AREA(S) TWICE DAILY IN THE MORNING AND AT BEDTIME NEEDED FOR PAIN 100 g 1 Active SUMAtriptan (Imitrex) 25 MG tablet TAKE 1 TABLET BY MOUTH AT ONSET OF MIGRAINE. MAY REPEAT ONCE AFTER 2 HOURS IF NEEDED, DO NOT EXCEED 2 TABLETS / 24 HOURS 9 tablet 3 Active lisinopril 20 MG tabletIndications :Essential hypertension Take 1 tablet (20 mg) by mouth Once per day. 90 tablet 3 Active lidocaine (Lidoderm) 5 % patchIndications: Osteoarthritis, unspecified osteoarthritis type, unspecified site Apply 1 patch topically Once per day. Remove & discard patch within 12 hours or as directed by . 30 patch 2024 Active lisinopril 20 MG tabletIndications :Essential hypertension TAKE 1 TABLET BY MOUTH EVERY DAY 90 tablet 3 025 2024 Discontinued(R eorder (will not trigger notification to Pharmacy)) Active Problems Problem Noted Date Diagnosed Date Osteoarthritis 11/08/2024 Assessment & Plan (11/08/2024 10:08 AM EDT): Orders: Referral to Orthopaedic Surgery; Future lidocaine (Lidoderm) 5 % patch; Apply 1 patch topically Once per day. Remove & discard patch within 12 hours or as directed by MD. Arthritis of knee 11/08/2024 Assessment & Plan (11/08/2024 10:08 AM EDT): Orders: Referral to Orthopaedic Surgery; Future Hypertension 11/08/2024 Assessment & Plan (11/08/2024 10:08 AM EDT): Orders: Hemoglobin A1c; Future Comprehensive Metabolic Panel; Future Lipid Panel, Standard; Future Visual impairment 10/12/2024 Pelvic pain 03/19/2024 Assessment & Plan (03/19/2024 [...] 04/06/2015 Essential hypertension 04/06/2015 Assessment & Plan (11/08/2024 10:08 AM EDT): Orders: lisinopril 20 MG tablet; Take 1 tablet (20 mg) by mouth Once per day. Assessment & Plan (11/09/2023 11:10 AM EDT): [...] as controller medication OAB (overactive bladder) 04/06/2015 Primary osteoarthritis involving multiple joints 04/06/2015 Assessment & Plan (04/11/2023 1:31 PM EST): History of chronic pain associated with OA of various joints including low back and hips Following with [facility]. Previously w/ COT, not currently. [...] three times a day as needed Continue BEVEL MILL OPERATOR appointments followup with Pain Mgmt for other treatment modalities Assessment & Plan (02/08/2022 11:47 AM EST): continue Tramadol 50mg three times a day as needed Continue BEVEL MILL OPERATOR appointments followup with Pain Mgmt to see if they can offer her the implantable device Resolved Problems Problem Noted Date Diagnosed Date Resolved Date Obesity 04/06/2015 10/12/2024 Encounters Date Type Department Care Team Description 11/08/2024 9:45 AM EDT Office Visit [address] [address] Dona Guzman NP Osteoarthritis, unspecified osteoarthritis type, unspecified site (Primary Dx); Essential hypertension; Arthritis of knee; Hypertension, unspecified type 11/08/2024 Travel 10/11/2024 3:45 PM EDT Office Visit [facility] [address] [place] [phone] Sanaz Pope MD Primary osteoarthritis involving multiple joints (Primary Dx); Essential hypertension; Visual impairment 10/11/2024 Travel 10/09/2024 Telephone [facility] [address] [place] [phone] Sanaz Pope MD chart prep 10/03/2024 Patient Outreach [address] [address] Sanaz Pope MD Pre-visit Planning (SDWA completed on 07/23/2024) 09/17/2024 Refill [facility] [address] [place] [phone] Sanaz Pope MD 09/15/2024 Refill [facility] [address] [place] [phone] Sanaz Pope MD from Last 3 Months Immunizations Immunization Administration Dates Next Due Hep B, adult [...] Mass Index 29.79 11/08/2024 9:46 AM EDT Plan of Treatment Upcoming Encounters Date Type Department Care Team (Late st Contact Info) Description 11/11/2024 10:45 AM EDT Office Visit [facility] [address] [place] [phone] Health Maintenance Due Date Last Done Comments [...] 04/2009 Mammogram 06/16/2023 06/15/2021, 110 06/2018, 09/13/2017 COVID-19 Vaccine ( season) 2024 11/08/2023, 06/22/2020, 05/27/2020 Influenza Vaccine (#1) 2024 , 01/26/2017, 11/12/2015, Additional history exists Cervical Cancer Screening 07/21/2025 HPV/Cotest 07/21/2025 07/21/2020 Pap Smear 07/21/2025 07/21/2020 SDOH Screening 07/23/2025 07/23/2024 Depression Screening 10/12/2025 10/12/2024, 10/13/19 Tobacco Screening 11/08/2025 11/08/2024 Colonoscopy 08/09/2026 08/09/2021 Colorectal Cancer Screening 08/09/2026 Lipid Panel 03/25/2029 03/25/2024, 06/14, 02/08/2022, Additional history exists DTaP/Tdap/Td Vaccines (3 - Td or Tdap) 09/10/2031 09/09/2021, 06/24/2010, 06/11/2001, Additional history exists Hepatitis B Vaccines Completed 09/19/2011, 08/23/2010, 07/20/2010 Zoster Vaccines Completed 07/27/2022, 05/25/2022 Pneumococcal Vaccine: 50+ Years Completed 11/08/2023, 06/30/2010 Hepatitis C Screening Completed 03/25/2024 , 03/25/2024, 11/08/2023, Additional history exists HIB Vaccines Aged Out No longer eligi [...] patient's age to complete this topic Meningococcal B Vaccine Aged Out No l onger eligible based on patient's age to complete [...] Procedure Name Priority Date/Time Associated Diagnosis Comments HEPATITIS C AB W/REFL TO HCV RNA, QN, PCR Routine 03/25/2024 3:50 PM EST Sexually transmitted infection LIPID PANEL, STANDARD Routine 03/25/2024 3:50 PM EST Essential hypertension HM COLONOSCOPY Routine 08/09/2021 3:46 PM EDT MAMMOGRAM GENERIC Routine 06/15/2021 11: 35 AM EDT HPV MRNA E6/E7 Routine 07/21/2020 1:07 PM EDT THINPREP PAP Routine 07/21/2020 1:07 PM EDT PANORAMIC RADIOGRAPHIC IMAGE Routine 08/03/2016 12:00 AM EDT COMPREHENSIVE ORAL EVALUATION - NEW OR ESTABLISHED PATIENT Routine 08/03/2016 12:00 AM EDT PROPHYLAXIS - ADULT Routine 11/12/2009 1 2:00 AM EDT INTRAORAL - COMPLETE SERIES OF RADIOGRAPHIC IMAGES Routine 06/15/2009 12:00 AM EDT from Last 3 Months or Most Recently Relevant to Health Maintenance Results * (ABNORMAL) Hepatitis C Antibody with Reflex to HCV, RNA, Quantitative, Real- Time PCR (03/25/2024 3:50 PM EST) Hepatitis C Antibody Reactive( A) Nonreactive [facility] Comment:Presumptive evidence of antibodies to HCV. Blood Venous blood specimen / Unknown 03/25/2024 3:50 PM EST 03/25/2024 5:49 PM EST us Sanaz Pope MD LAB BLOOD ORDERABLES Final Res ult [facility] [address] [place] [phone] * Lipid Panel, Standard (03/25/2024 3:50 PM EST) Triglycerides 79 <150 mg/dL [facility] Comment:Desirable Triglyceri de: less than 150 mg/dLBorderline High Triglyceride 150-199 mg/dLHigh Triglyceride: 200-499 mg/dLVery High Triglyceride: greater than or equal to 5OO mg/dL Cholesterol 102 <200 mg/dL [facility] Comment:Desirable Cholestero l: less than 200 mg/dLBorderline High Cholesterol: 200-239 mg/dLHigh Cholesterol: greater than 239 mg/dL LDL Cholesterol Calculated 44 <100 mg/dL [facility] Comment:Desirable LDL: less than 100 mg/dLNear Optimal/Above Optimal LDL: 110- 129 mg/dLBorderline High LDL: 130-159 mg/dLHigh LDL: 160-189 mg/dLVery High LDL: greater than or equal to 190 mg/dL HDL Cholesterol 43 >40 mg/dL [facility] Comment:Desirable HDL: great er than 40 mg/dL Note: This HDL assay may give artificially low results in patients with liver disease. Blood Venous blood specimen / Unknown 03/25/2024 3:50 PM EST 03/25/2024 5:49 PM EST Sanaz Pope MD LAB BLOOD ORDERABLES Final Res ult [facility] [address] [place] [phone] * Hm Colonoscopy (08/09/2021 3:46 PM EDT) Historical Provider HEALTH MAINTENANCE Final Result * Mammography Report 1 (06/15/2021 11:35 AM EDT) Anatomical Region Laterality Modality Breast Bilateral Mammography 06/15/2021 11:3 5 AM EDT Narrative 06/16/2021 4:29 PM EDT Refer to the Notes tab for result details [facility] Procedure: Mammography Report 1 Procedure Note Provider, Alisa, - 05/08/2022 Refer to the Notes tab for result details [facility] Procedure: Mammography Report 1 Result [facility] Kayla Resendez ONLINE SERVICES MANAGER IMG BI PROCEDURES Final Result * THINPREP PAP (07/21/2020 1:07 PM EDT) Clinical Information: None given [facility] COMMENT SEE COMMENT [facility] Comment: EXPLANATORY NOTE: The Pap is a screening test for cervical cancer. It is not a diagnostic test and is subject to false negative and false positive results. It is most reliable when a satisfactory sample, regularly obtained, is submitted with relevant clinical findings and history, and when the Pap result is evaluated along with historic and current clinical information. Street Roller Engineer: SEE COMMENT [facility] Comment: RXB, CT(ASCP) CT screening location: [address] [address] Interpretation/Res ult: [facility] Comment: Negative for intraepithelial lesion or malignancy. Atrophic pattern; predominantly parabasal cells LMP: NONE [facility]IV[facility] Prev. BX: NONE [facility]IV[facility] Prev. PAP: NONE [facility]IV[facility] SOURCE: None given [facility] Statement Of Adequacy: SATISFACTORY FOR EVALUATION [facility] 07/21/2020 1:07 PM EDT Daezel Lacanlale ELECTRIC CRANE OPERATOR LAB PATHOLOGY ORDERABLES Fi nal Result Performing Organization Address [facility] Co de Phone Number [facility] [address] * HPV mRNA E6/E7 (07/21/2020 1:07 PM EDT) HPV nRNA E6/E7 Not Detected Not Detected [facility] Comment: Methodology: Senior Materials Planner-Mediated Amplification This assay detects E6/E7 viral messenger RNA (mRNA) from 14 high-risk HPV types (16,18,31,33,35,39,45,51,52,56,58,59,66,68). The analytical performance characteristics of this assay have been determined by [facility]. The modifications have not been cleared or approved by the FDA. This assay has been validated pursuant to the CLIA regulations and is used for clinical purposes. For additional information, please refer to http://education.[employer].Sold/faq/FFA561e7 (This link if provided for information/ educational purposes only.) 07/21/2020 1:07 PM EDT [employer] ELECTRIC CRANE OPERATOR LAB BLOOD ORDERABLES Final Result Performing Organization Address [facility] Co de Phone Number [facility] [address] from Last 3 Months or Most Recently Relevant to Health Maintenance Insurance [id number] OPTIONS (HMO D-SNP) [place] [id number] , [place] [address] Care Teams Leather Coverer Relationship Specialty Start Date End Date Sanaz Pope MD [address] [place] [phone] PCP - General Family Medicine 10/13/21
--- OUTSIDE RECORDS SUMMARY | 2024-11-08 11:30 | XMS_ITS | Encounter Summary ---
Author Organization [employer] Address [address] [place] [address] Care Team Providers Care Design/Animation Instructor Name Role Phone Sanaz Pope MD Primary Care Provider [phone] Encounter Details Date Type Department Care Team (Late st Contact Info) Description 06/22/2023 Orders Only [facility] [address] [place], [place] [phone] Provider, MD Alisa Social History Tobacco Use Types Packs/Day Years Used Date Smoking Tobacco: Never Smokeless Tobacco: Never Alcohol Use Standard Drinks/Week Comments Never 0 (1 standard drink = 0.6 oz pur e alcohol) Housing Stability Answer Date Recorded What is your housing situation today? I have alverto ramin 12/01/[address] you li [...] Description 11/11/2024 10:45 AM EDT Office Visit [facility] [address] [place] [address] documented as of this encounter Procedures Procedure Name Priority Date/Time Associated Diagnosis Comments HM COLONOSCOPY Routine 08/09/2021 3:46 PM EDT documented in this encounter Results * Hm Colonoscopy (08/09/2021 3:46 PM EDT) Historical Provider HEALTH MAINTENANCE Final Result documented in this encounter Visit Diagnoses Not on filedocumented in this encounter Care Teams Design/Animation Instructor Relationship Specialty Start Date End Date Sanaz Pope MD [address] [place] [address] PCP - General Family Medicine 10/13/21 documented as of this encounter
--- OUTSIDE RECORDS SUMMARY | 2024-11-08 11:30 | XMS_ITS | Encounter Summary ---
Author Organization [employer] Address [address] [facility] [address] [place] [address] Care Team Providers Care Fitting Room Operator Name Role Phone Sanaz Pope MD Primary Care Provider [phone] Encounter Details Date Type Department Care Team (Late st Contact Info) Description 03/07/2023 Orders Only [facility] [address] [place], [place] [phone] Sanaz Pope MD [address] [place], [place] [phone] Primary osteoarthritis involving multiple joints (Primary Dx) [...] Description 11/11/2024 10:45 AM EDT Office Visit [facility] [address] [place] [address] documented as of this encounter Visit Diagnoses Diagnosis Primary osteoarthritis involving multiple joints- Primary documented in this encounter Care Teams Fitting Room Operator Relationship Specialty Start Date End Date Sanaz Pope MD [address] [place] [phone] PCP - General Family Medicine 10/13/21 documented as of this encounter
--- OUTSIDE RECORDS SUMMARY | 2024-11-08 11:30 | XMS_ITS | Encounter Summary ---
Author Organization [employer] Address [address] [facility] [address] [place] [address] Care Team Providers Care Ginner Name Role Phone Sanaz Pope MD Primary Care Provider Encounter Details Date Type Department Care Team (Late st Contact Info) Description 03/07/2023 Orders Only [facility] [address] [place], [place] [phone] Sanaz Pope MD [address] [place], [place] [phone] Social History Tobacco Use Types Packs/Day Years [...] Office Visit [facility] [address] [place] [address] documented as of this encounter Visit Diagnoses Not on filedocumented in this encounter Care Teams Ginner Relationship Specialty Start Date End Date Sanaz Pope MD [address] [place] [address] PCP - General Family Medicine 10/13/21 documented as of this encounter
[2024-11-08 11:56] LABS: Hemoglobin A1C 122.9090 umol/L; Total Hemoglobin (HGBA1C) 3133.0470 umol/L
[2024-11-08 12:00] LABS: Alanine Aminotransferase 21 U/L (0-31); Albumin Level 4.2 g/dL (3.5-5.0); Alkaline Phosphatase 63 U/L (39-117); Anion Gap 9 (12-20); Aspartate Amino Transferase 26 U/L (5-31); Blood Urea Nitrogen 11 mg/dL (9-16); Calcium 8.9 mg/dL (8.4-10.2); Carbon Dioxide 28 mmol/L (22-29); Chloride 109 mmol/L (96-108); Cholesterol 152 mg/dL (<200); Estimated Glomerular Filt Rate > 60; HDL Cholesterol 51 mg/dL (>40); Potassium 4.0 mmol/L (3.3-5.1); Sodium 142 mmol/L (135-145); Total Protein 6.7 g/dL (6.5-8.0); Triglycerides 63 mg/dL (<150)
== END 2024-11-08 10:16 | disposition home or self-care (01) ==
LOC: HO.HHCL 10:15
PROVIDERS: PCP General Practice; Visit Provider Nurse Practitioner Family
DX: I10 Essential (primary) hypertension (principal)
CPT/HCPCS: 36415; 80053; 80061; 83036

== ENCOUNTER 2024-12-25 18:19 | Outpatient (REF) | payer OTHER, SELFPAY | END 2024-12-25 18:20 | disposition home or self-care (01) | LOC: HO.HOSX 18:19 | PROVIDERS: Visit Provider Physician Assistant | DX: Z13.89 Encounter for screening for other disorder (principal) ==

== ENCOUNTER 2024-12-26 08:44 | Outpatient (REF) | payer OTHER, SELFPAY | END 2024-12-26 08:45 | disposition home or self-care (01) | LOC: HO.HOSX 08:44 | PROVIDERS: Visit Provider Physician Assistant | DX: Z13.89 Encounter for screening for other disorder (principal) ==

== ENCOUNTER 2024-12-27 08:58 | Outpatient (REF) | payer OTHER, SELFPAY ==
--- NOTE | ~2024-12-27 | XR_ITS ---
EXAMINATION: XR KNEE, RIGHT CLINICAL INFORMATION: M17.11 - Unilateral primary osteoarthritis, right knee COMPARISON: X-ray 04/22/2021 TECHNIQUE: Two views of the right knee. Bilateral knees one view FINDINGS: Right knee: No acute fracture or dislocation. Mild medial and lateral compartment joint space loss. Marginal osteophytes. No effusion. No abnormal soft tissue calcification. Left knee: Minimal medial compartment joint space narrowing. XR/XR knee RT 3V IMPRESSION: Right knee: Mild medial and lateral compartment arthritis. Electronically signed by: Ifeanyi Gibbs MD 12/27/2024 02:56 PM EST
== END 2024-12-27 08:59 | disposition home or self-care (01) ==
LOC: HO.HOSX 08:58
PROVIDERS: PCP General Practice; Visit Provider Physician Assistant
DX: M17.11 Unilateral primary osteoarthritis, right knee (principal); Z79.899 Other long term (current) drug therapy
CPT/HCPCS: 73562; 99212

== ENCOUNTER 2024-12-27 08:58 | Outpatient (AMB) | payer OTHER, SELFPAY ==
--- NOTE | 2024-12-27 09:02 | MHC.OFFVIS ---
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 Patient was seen by [facility] for her right knee, nerve block was also done with 3 days of relief. At today's visit she states constant pain at the anterior aspect of knee that radiates up the lateral side of her leg. Complaints of throbbing pain with going up the stairs. No recent treatment. Finds little relief with Tylenol and ibuprofen. Denies injury. Heat Treat Furnace Operator Required: Yes Heat Treat Furnace Operator Services: Heat Treat Furnace Operator Present Heat Treat Furnace Operator Name: Alexandra ID#[id number] Allergies No Known Allergies Allergy (Verified 12/27/24 09:32) Medication List - Last Reconciled 12/27/24 by Paras Dickens PA-C acetaminophen 1,000 mg (2 x 500 mg) PO Q8H PRN albuterol sulfate 90 mcg/actuation (ProAir HFA) 2 puffs PO Q4-6H PRN celecoxib (Celebrex) 200 mg PO BID 30 days diclofenac sodium 1% grams topical fluticasone propionate 50 mcg/actuation 2 sprays intranasal DAILY fluticasone propionate 110 mcg/actuation (Flovent HFA) 2 puffs inhalation BID hydrocortisone 1% (Preparation H Hydrocortisone) 1 appl topical BID-QID PRN 90 days ibuprofen 600 mg PO Q8H PRN lidocaine 5% (Lidoderm) 1 patch topical DAILY lisinopril 20 mg PO DAILY loratadine 10 mg PO DAILY PRN omeprazole mg PO QAM sertraline 100 mg PO DAILY sumatriptan succinate mg PO HPI HPI 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 She has been experiencing pain for several years. She states she had has injection in the knee, approx 3 years ago which was helpful. She was seen by pain mgmnt , they did a nerve block which was not helpful [facility] Medical History Anxiety Asthma Colon cancer screening Diabetes GERD (gastroesophageal reflux disease) HTN (hypertension) Hx of hemorrhoids Seasonal allergies Surgical History Hx of colonoscopy Family History Mother High blood pressure Diabetes Father High blood pressure Diabetes Social History Alcohol intake: current Alcohol intake frequency: does not drink Alcohol type: beer Patient Tobacco Use Status: Never used Tobacco Substance Use Type: Marijuana Review of Systems Const All systems reviewed & are unremarkable except as noted in HPI and below Physical Exam Extrem Other: Right knee is normal To inspection she has full range of motion with crepitus and lateral retropatellar in his to palpation. No joint effusion present. Tenderness over the medial joint line. Calf supple nontender neurovascularly intact. Results Reviewed Results Reviewed: X-rays of the right knee obtained in the office today and reviewed by me show mild medial compartment and patellofemoral arthritis Assessment & Plan Assessment & Plan (1) Osteoarthritis of right knee: Code(s): M17.11 - Unilateral primary osteoarthritis, right knee Category: Medical Plan: We discussed options today which includes conservative treatment with physical therapy and NSAIDs. I did send a prescription for Celebrex to the pharmacy along with a physical therapy order. I did give her the information to call and make an appointment. We will hold off on steroid injection today however if symptoms persist or worsen over the next several weeks she can contact our office to schedule an injection otherwise she will follow up as needed. Orders: Orders XR knee RT 3V Today M17.11 - Unilateral primary osteoarthritis, right knee PT Evaluation and Treatment Today M17.11 - Unilateral primary osteoarthritis, right knee Medications: New celecoxib (Celebrex) 200 mg PO BID 60 caps 3RF 30 days Coding Level of Care Code Est Pt Level 3 (60578) Complex EM visit Add On G2211 Diagnoses Osteoarthritis of right knee M17.11
--- OUTSIDE RECORDS SUMMARY | 2024-12-27 09:28 | XMS_ITS | Encounter Summary ---
Author Organization [employer] Address [address] [facility] 7[address] [place] [address] Care Team Providers Care Vacuum Spindle Sander Name Role Phone Sanaz Pope MD Primary Care Provider [phone] Encounter Details Date Type Department Care Team (Late st Contact Info) Description 02/09/2022 Orders Only [facility] [address] [place], [place] [phone] Sanaz Pope MD [address] [place], [place] [phone] Hyperlipidemia, unspecified hyperlipidemia type (Primary Dx) Social [...] as of this encounter Plan of Treatment Not on file documented as of this encounter Procedures Procedure [...] Dimer High Sensitivity (08/12/2022 9:52 PM EDT) [facility] D Dimer High Sensitivity 176 NG/ML [facility] Comment:D-DIMER HS REFERENCE RANGENote: Our assay reports D-Dimer Units (D- DU).The cut-off value for venous thromboembolic (VTE) disease is230 ng/mL. This value has a very high negative predictivevalue when the patient has a low to moderate clinicalprobability of VTE.The upper limit of normal is 243 ng/mL. 08/12/2022 9:52 PM EDT 08/12/2022 9:57 PM EDT [facility] External Provider LAB BLO OD ORDERABLES Final Result [facility] [address] [place] [address] [phone] * High Sensitivity Troponin I (08/12/2022 9:52 PM EDT) [facility] TROPONIN I HIGH SENSITIVITY <2.7 <3.5 - 17.0 ng/L [facility] Comment:The Mcgarry high sens itivity Troponin-I results should beused in conjunction with other diagnostic information suchas ECG, clinical observations and information, and patientsymptoms to aid in the diagnosis of WI. 08/12/2022 9:52 PM EDT 08/12/2022 9:57 PM EDT [facility] External Provider LAB BLO OD ORDERABLES Final Result Performing Organization Address [facility] Co de Phone Number [facility] [address] [place] [phone] * High Sensitivity Troponin I (08/12/2022 6:56 PM EDT) TROPONIN I HIGH SENSITIVITY <2.7 <3.5 - 17.0 ng/L [facility] Comment:The [employer] high sens itivity Troponin-I results should beused in conjunction with other diagnostic information suchas ECG, clinical observations and information, and patientsymptoms to aid in the diagnosis of WI. 08/12/2022 6:56 PM EDT 08/12/2022 6:59 PM EDT [facility] External Provider LAB BLO OD ORDERABLES Final Result Performing Organization Address [facility] de Phone Number [facility] [address] [place] [phone] * Hepatic Function Panel (08/12/2022 6:56 PM EDT) Bilirubin, Total 0.3 0.0 - 1.0 mg/dL [facility] Bilirubin, Direct 0.1 0.0 - 0.5 mg/dL [facility] Aspartate Amino Transferase 20 5 - 31 U/L [facility] Alanine Aminotransferase 15 0 - 31 U/L [facility] Total Protein 6.7 6.5 - 8.0 g/dL [facility] Albumin Level 4.0 3.5 - 5.0 g/dL [facility] Alkaline Phosphatase 66 39 - 117 U/L [facility] 08/12/2022 6:56 PM EDT 08/12/2022 6:59 PM EDT us [facility] External Provider LAB BLO OD ORDERABLES Final Result [facility] [address] [place] [phone] * (ABNORMAL) CBC auto differential (08/12/2022 6:56 PM EDT) White Blood Count 5.9 4.8 - 10.8 X10*3/uL [facility] Red Blood Count 4.20 4.20 - 5.50 X10*6/uL [facility] Hemoglobin 11.2(L) 12.0 - 16.0 g/dl [facility] Hematocrit 35.1(L) 37.0 - 47.0 % [facility] Mean Corpuscular Volume 83.6 80.0 - 98.0 fL [facility] Mean Corpuscular Hemoglobin 26.7(L) 27.0 - 33.0 pg [facility] Mean Corpuscular HGB Conc 31.9 31.0 - 35.0 g/dl [facility] Red Cell Distribution Width 14.6 11.0 - 16.0 % [facility] Platelet Count 163 160 - 400 X10*3/uL [facility] Mean Platelet Volume 11.4 9.4 - 12.3 fL [facility] Neutrophils Percent Auto 71.6 45 - 73 % [facility] Imm Gran Pct Auto 0.2 0.0 - 0.4 % [facility] Lymphocytes Percent Auto 20.7 20 - 40 % [facility] Monocytes Percent Auto 6.1 2 - 11 % [facility] Eosinophils Percent Auto 0.9 0 - 4 % [facility] Basophils Percent Auto 0.5 0 - 2 % [facility] NRBC Pct Auto 0.0 0.0 - 0.2 /100WBC [facility] Neutrophils Absolute Auto 4.2 2.0 - 8.3 x10*3/uL [facility] Imm Gran Abs Auto 0.01 0.00 - 0.03 X10*3/uL [facility] Lymphocytes Absolute Auto 1.2 1.2 - 4.9 X10*3/uL [facility] Monocytes Absolute Auto 0.4 0.1 - 1.2 X10*3/uL [facility] Eosinophils Absolute Auto 0.1 0.0 - 0.4 X10*3/uL [facility] Basophils Absolute Auto 0.0 0.0 - 0.2 X10*3/uL [facility] NRBC Abs Auto 0.000 0.0 - 0.012 X10*3/uL [facility] 08/12/2022 6:56 PM EDT 08/12/2022 7:29 PM EDT [facility] External Provider LAB BLO OD ORDERABLES Final Result Performing Organization Address City/[facility]/ZIP Co de Phone Number [facility] [address] [place] [phone] * Ethanol (08/12/2022 6:56 PM EDT) Pathologist [facility] ETHANOL (MG/DL) IN SER/PLAS 21 mg/dL [facility] Comment:Serum/plasma ethanol results are to be used formedical/treatment purposes only. 08/12/2022 6:56 PM EDT 08/12/2022 6:59 PM EDT [facility] External Provider LAB BLO OD ORDERABLES Final Result Performing Organization Address [facility]/ZIP Co de Phone Number [facility] [address] [place] [address] [phone] * (ABNORMAL) Basic Metabolic Panel (08/12/2022 6:56 PM EDT) Pathologist [facility] Sodium 141 135 - 145 mmol/L [facility] Potassium 4.1 3.3 - 5.1 mmol/L [facility] Chloride 107 96 - 108 mmol/L [facility] Carbon Dioxide 25 22 - 29 mmol/L [facility] Anion Gap 13 12 - 20 [facility] Urea Nitrogen (BUN) 17(H) 9 - 16 mg/dL [facility] Creatinine, Serum 0.66 0.5 - 1.4 mg/dL [facility] Creatinine Clr Calc Pharmacy 73.8 [facility] Comment:Provided height and weight: 147.32 cm,72.575 kg.eGFR (calculated from the MDRD study equation) and eCrCl(calculated from the Cockcroft-Gault equation) are based ondifferent parameters and may not yield comparable results.If eCrCl result is absurd, please check patient'sheight/weight. Estimated Glomerular Filt Rate >60 [facility] Comment:NOTE: For -Am erican individuals, multiply the result by 1.210.Chronic Kidney Disease: Estimated GFR < 60 mL/min/1.48q9Fnspie Kidney Disease: Estimated GFR < 15 mL/min/1.73m2 Glucose 132(H) 60 - 115 mg/dL [facility] Calcium 9.8 8.4 - 10.2 mg/dL [facility] 08/12/2022 6:56 PM EDT 08/12/2022 6:59 PM EDT us [facility] External Provider LAB BLO OD ORDERABLES Final Result [facility] [address] [place] [phone] documented in this encounter Visit Diagnoses Diagnosis Hyperlipidemia, unspecified hyperlipidemia type- Primary documented in this encounter Care Teams Vacuum Spindle Sander Relationship Specialty Start Date End Date Sanaz Pope MD [address] [place] [address] PCP - General Family Medicine 10/13/21 documented as of this encounter
--- OUTSIDE RECORDS SUMMARY | 2024-12-27 09:28 | XMS_ITS | Encounter Summary ---
Author Organization [employer] Address [address] [facility] 7t [place] [address] Care Team Providers Care Therapeutic Recreation Specialist Name Role Phone Sanaz Pope MD Primary Care Provider [phone] Encounter Details Date Type Department Care Team (Late st Contact Info) Description 03/07/2023 Orders Only [facility]ICINE [address] [place], [place] [phone] Sanaz Pope MD [address] [place], [place] [phone] Primary osteoarthritis involving multiple joints (Primary Dx) [...] on file documented as of this encounter Visit Diagnoses Diagnosis Primary osteoarthritis involving multiple joints- Primary documented in this encounter Care Teams Therapeutic Recreation Specialist Relationship Specialty Start Date End Date Sanaz Pope MD [address] [place] [address] PCP - General Family Medicine 10/13/21 documented as of this encounter
--- OUTSIDE RECORDS SUMMARY | 2024-12-27 09:28 | XMS_ITS | Clinical Summary ---
Author Organization [employer] Address [address] [place] [address] 7[address] [place] [address] Care Team Providers Care Bag Hanger Name Role Phone Sanaz Pope MD Primary Care Provider Allergies No known active allergies Medications fluticasone (Flonase) 50 MCG/ACT nasal spray Administer 2 sprays into each nostril 1 (one) time each day. 05/12/19 22 Active loratadine (Claritin) 10 MG tablet Take 1 tablet by mouth if needed each day. 11/19/19 21 Active witch tabitha-glycerin (Tucks) pad Apply 1 each topically if needed. Use as directed 08/26/19 21 Active Respiratory Therapy Supplies (Nebulizer/Tubing/ Mouthpiece) kit Acti ve Blood Pressure kit Medium and Large Cuff Active fluticasone (Flovent) 110 MCG/ACT inhaler Inhale 2 puffs every 12 (twelve) hours. Rinse mouth out afterwards 36 g 1 05/12/19 23 Active cromolyn (Opticrom) 4 % ophthalmic solutionIndication s:Allergic conjunctivitis of both eyes 1-2 drops to the both eyes 4x/day for 7 days (Pashto label please) 10 mL 08/22/19 24 Active risperiDONE (RisperDAL) 1 MG tabletIndications: Anxiety TAKE 1 TABLET BY MOUTH AT BEDTIME 90 tablet 09/12/19 24 Active simvastatin (Zocor) 20 MG tabletIndications: Hyperlipidemia, unspecified hyperlipidemia type Take 1 tablet (20 mg) by mouth Once per day. 90 tablet 09/12/19 24 Active Acetaminophen Extra Strength 500 MG tabletIndications: Unilateral primary osteoarthritis, right knee,Pain in right knee TAKE 2 TABLETS BY MOUTH EVERY 8 HOURS NEEDED FOR PAIN 180 tablet 3 09/18/19 24 Active D3 Super Strength 50 MCG (2000 UT) capsule Take 50 mcg by mouth Once per day. 07/07/19 24 Active albuterol 108 (90 Base) MCG/ACT inhaler Inhale 2 puffs every 4 (four) hours if needed for shortness of breath. Every 4-6 hours as needed 18 g 11 03/25/19 25 Active omeprazole (PriLOSEC) [address] capsule TAKE 1 CAPSULE BY MOUTH EVERY DAY IN THE MORNING 90 capsule 3 07/24/19 25 Active meloxicam (Mobic) 7.5 MG tablet TAKE 1 TABLET BY MOUTH EVERY DAY 90 tablet 3 09/17/19 25 Active Diclofenac Sodium 1 % gel APPLY TOPICALLY TO THE AFFECTED AREA(S) TWICE DAILY IN THE MORNING AND AT BEDTIME NEEDED FOR PAIN 100 g 1 09/19/19 25 Active SUMAtriptan (Imitrex) 25 MG tablet TAKE 1 TABLET BY MOUTH AT ONSET OF MIGRAINE. MAY REPEAT ONCE AFTER 2 HOURS IF NEEDED, DO NOT EXCEED 2 TABLETS / 24 HOURS 9 tablet 3 09/19/19 25 Active lisinopril 20 MG tabletIndications: Essential hypertension Take 1 tablet (20 mg) by mouth Once per day. 90 tablet 3 11/09/19 25 Active lidocaine (Lidoderm) 5 % patchIndications:O steoarthritis, unspecified osteoarthritis type, unspecified site Apply 1 patch topically Once per day. Remove & discard patch within 12 hours or as directed by MD. 30 patch 11/09/19 025 Active Problems Problem Noted Date Diagnosed Date Arthritis of knee 11/08/2024 Assessment & Plan (11/08/2024 2:10 PM EDT): Orders: Referral to Orthopaedic Surgery; Future Visual impairment 10/12/2024 Pelvic pain 03/19/2024 [...] revaluation Hepatitis C antibody positive in blood 4 Primary osteoarthritis of both hips 11/09/2023 Vitamin D deficiency 06/21/2017 Allergic rhinitis 04/06/2015 Anxiety 04/06/2015 Essential hypertension 04/06/2015 Assessment & Plan (11/08/2024 2:10 PM EDT): Orders: lisinopril 20 MG tablet; Take [...] involving multiple joints 04/06/2015 Assessment & Plan (11/18/2024 8:18 AM EDT): Pt attended and participated in chronic pain group today - good engagement with group model of care - continue to use combination of non-pharmacological modalities to address pain - followup in 1-2 weeks for next chronic pain group Assessment & Plan (04/11/2023 1:31 PM EST): History of chronic pain associated with OA of various joints including low back and hips Following with [facility]. Previously w/ COT, not currently. [...] three times a day as needed Continue BISTRO SERVER appointments followup with Pain Mgmt for other treatment modalities Assessment & Plan (02/08/2022 11:47 AM EST): continue Tramadol 50mg three times a day as needed Continue BISTRO SERVER appointments followup with Pain Mgmt to see if they can offer her the implantable device Resolved Problems Problem Noted Date Diagnosed Date Resolved Date Osteoarthritis 11/08/2024 11/12/2024 Assessment & Plan (11/08/2024 2:10 PM EDT): Orders: Referral to Orthopaedic Surgery; Future lidocaine (Lidoderm) 5 % patch; Apply 1 patch topically Once per day. Remove & discard patch within 12 hours or as directed by . Hypertension 11/08/2024 11/12/2024 Assessment & Plan (11/08/2024 2:10 PM EDT): Orders: Hemoglobin A1c; Future Comprehensive Metabolic Panel; Future Lipid Panel, Standard; Future Obesity 04/06/2015 10/12/2024 Encounters Date Type Department Care Team Description 11/19/2024 Travel 11/11/2024 10:45 AM EDT Office Visit [address] [address] Sanaz Pope MD Primary osteoarthritis involving multiple joints (Primary Dx); Primary osteoarthritis of both hips; Arthritis of knee 11/11/2024 Travel 11/08/2024 9:45 AM EDT Office Visit [address] [address] Dona Guzman NP Osteoarthritis, unspecified osteoarthritis type, unspecified site (Primary Dx); Essential hypertension; Arthritis of knee; Hypertension, unspecified type 11/08/2024 Travel 10/11/2024 3:45 PM EDT Office Visit [address] [address] Sanaz Pope MD Primary osteoarthritis involving multiple joints (Primary Dx); Essential hypertension; Visual impairment 10/11/2024 Travel 10/09/[address] [address] Sanaz Pope MD chart prep 10/03/2024 Patient Outreach [address] [address] Sanaz Pope MD Pre-visit Planning (SDWA completed on 07/23/2024) from Last 3 Months Immunizations Immunization Administration [...] the past 12 months, has t he [employer], gas, oil or water company threatened to [...] 11/08/2024 9:46 AM EDT Plan of Treatment Health Maintenance Due Date Last Done Comments CT Colonography 1959 FIT DNA/Cologuard 1959 FIT 1959 FOBT 1959 Sigmoidoscopy 1959 Alcohol/Substance Use Screening 1971 RSV Patients and Patients Aged 60 years or older (1 - Risk 50-74 years 1-dose series) 2009 Dental Prophylaxis 05/13/2010 11/12/2009 Dental X-Ray: Bitewings 06/16/2010 06/15/2009 Dental Oral Exam 02/03/2017 08/03/2016, 08/03/2016 Dental X-Ray: Full Mouth 08/05/2019 08/03/2016, 05/0 04/2009 Mammogram 06/16/2023 06/15/2021, 11/0 06/2018, 09/13/2017 COVID-19 Vaccine ( season) 2024 11/08/2023, 06/22/2020, 05/27/2020 Influenza Vaccine (#1) 2024 , 01/26/2017, 11/12/2015, Additional history exists Cervical Cancer Screening 07/21/2025 HPV/Cotest 07/21/2025 07/21/2020 Pap Smear 07/21/2025 07/21/2020 SDOH Screening 07/23/2025 07/23/2024 Depression Screening 10/12/2025 10/12/2024, 08/30/20 25 Diabetes: Hemoglobin A1C 11/08/2025 025, 03/25/2024, 07/07/2023, Additional history exists Tobacco Screening 11/12/2025 11/12/2024 Colonoscopy 08/09/2026 08/09/2021 Colorectal Cancer Screening 08/09/2026 Lipid Panel 11/08/2029 11/08/2024, 03/16, 07/07/2023, Additional history exists DTaP/Tdap/Td Vaccines (3 - [...] Procedure Name Priority Date/Time Associated Diagnosis Comments LIPID PANEL, STANDARD Routine 11/08/2024 10:38 AM EDT Hypertension, unspecified type COMPREHENSIVE METABOLIC PANEL Routine 11/08/2024 10:38 AM EDT Hypertension, unspecified type HEMOGLOBIN A1C Routine 11/08/2024 10:38 AM EDT Hypertension, unspecified type HEPATITIS C AB W/REFL TO HCV RNA, QN, PCR Routine 03/25/2024 3:50 PM EST Sexually transmitted infection HM COLONOSCOPY Routine 08/09/2021 3:46 PM EDT [...] Recently Relevant to Health Maintenance Results * Hemoglobin A1c (11/08/2024 10:38 AM EDT) Hemoglobin A1c 5.7 <6.0 % [facility] Comment:Hemoglobin A1C Refer ence Range Adults: 4.8 - 6.0 % Non diabetic: < 6.0 % Goal: < 7.0 %Additional Action Suggested: > 8.0 %Note: Hemoglobin A1c results are invalid for patients with abnormal amounts of HbF. Blood transfusions may impact the HbA1c concentration in the patient sample. Estimated Average Glucose 117 mg/dL [facility] Comment:eAG = Estimated ave rage glucose which is %A1C expressed asaverage glucose, using the formula of the B4T-[id number] Glucose study (ADAG), Diabetes Care, Vol.31,#8,Sep. 2007 Blood Venous blood specimen / Unknown 11/08/2024 10:38 AM EDT 11/08/2024 11:21 AM EDT us Dona Guzman NP LAB BLOOD ORDERABLES Final Resul t [facility] [address] [place] [phone] * Lipid Panel, Standard (11/08/2024 10:38 AM EDT) Triglycerides 63 <150 mg/dL [facility] Comment:Desirable Triglyceri de: less than 150 mg/dLBorderline High Triglyceride 150-199 mg/dLHigh Triglyceride: 200-499 mg/dLVery High Triglyceride: greater than or equal to 5OO mg/dL Cholesterol 152 <200 mg/dL [facility] Comment:Desirable Cholestero l: less than 200 mg/dLBorderline High Cholesterol: 200-239 mg/dLHigh Cholesterol: greater than 239 mg/dL LDL Cholesterol Calculated 89 <100 mg/dL [facility] Comment:Desirable LDL: less than 100 mg/dLNear Optimal/Above Optimal LDL: 110- 129 mg/dLBorderline High LDL: 130-159 mg/dLHigh LDL: 160-189 mg/dLVery High LDL: greater than or equal to 190 mg/dL HDL Cholesterol 51 >40 mg/dL [facility] Comment:Desirable HDL: great er than 40 mg/dL Note: This HDL assay may give artificially low results in patients with liver disease. Blood Venous blood specimen / Unknown 11/08/2024 10:38 AM EDT 11/08/2024 11:27 AM EDT us Dona Guzman NP LAB BLOOD ORDERABLES Final Resul t [facility] [address] [place] [phone] * (ABNORMAL) Comprehensive Metabolic Panel (11/08/2024 10:38 AM EDT) Sodium 142 135 - 145 mmol/L [facility] Potassium 4.0 3.3 - 5.1 mmol/L [facility] Chloride 109(H) 96 - 108 mmol/L [facility] Carbon Dioxide 28 22 - 29 mmol/L [facility] Anion Gap 9(L) 12 - 20 [facility] Urea Nitrogen (BUN) 11 9 - 16 mg/dL [facility] Creatinine, Serum 0.53 0.5 - 1.4 mg/dL [facility] Estimated Glomerular Filt Rate >60 [facility] Comment:Chronic Kidney Disea se: Estimated GFR < 60 mL/min/1.01c5Bhurcf Kidney Disease: Estimated GFR < 15 mL/min/1.73m2 Glucose 103 60 - 115 mg/dL [facility] Calcium 8.9 8.4 - 10.2 mg/dL [facility] Bilirubin, Total 0.4 0.0 - 1.0 mg/dL [facility] Aspartate Amino Transferase 26 5 - 31 U/L [facility] Alanine Aminotransferase 21 0 - 31 U/L [facility] Total Protein 6.7 6.5 - 8.0 g/dL [facility] Albumin Level 4.2 3.5 - 5.0 g/dL [facility] Alkaline Phosphatase 63 39 - 117 U/L [facility] Blood Venous blood specimen / Unknown 11/08/2024 10:38 AM EDT 11/08/2024 11:27 AM EDT us Dona Guzman [employer]IL [employer]DER LAB BLOOD ORDERABLES Final Resul t Performing Organization Address [facility] de Phone Number [facility] [address] [place] [phone] * (ABNORMAL) Hepatitis C Antibody with Reflex to HCV, RNA, Quantitative, Real- Time PCR (03/25/2024 3:50 PM EST) Hepatitis C Antibody Reactive( A) Nonreactive [facility] Comment:Presumptive evidence of antibodies to HCV. Blood Venous blood specimen / Unknown 03/25/2024 3:50 PM EST 03/25/2024 5:49 PM EST us Sanaz Pope MD LAB BLOOD ORDERABLES Final Res ult Performing Organization Address [facility] Co de Phone Number [facility] [address] [place] [phone] * Hm Colonoscopy (08/09/2021 3:46 PM EDT) us Historical Provider HEALTH MAINTENANCE Final Result * [...] Legacy Procedure: Mammography Report 1 Kayla Resendez NP IMG BI PROCEDURES Final Result * THINPREP [...] along with historic and current clinical information. Experimental Rocket Sled Mechanic: SEE COMMENT [facility] Comment: RXB, CT(ASCP) CT screening location: [place] [address] Interpretation/Res ult: SEE COMMENT [facility] Comment: Negative for intraepithelial lesion or malignancy. Atrophic pattern; predominantly parabasal cells LMP: NONE [facility] Prev. BX: NONE [facility] Prev. PAP: NONE [facility] SOURCE: None given [facility] Statement Of Adequacy: SATISFACTORY FOR EVALUATION [facility] 07/21/2020 1:07 PM EDT Taryn Huang ENROLLMENT NURSE LAB PATHOLOGY ORDERABLES Fi nal Result [facility] [address] * HPV mRNA E6/E7 (07/21/2020 1:07 PM EDT) HPV nRNA E6/E7 Not Detected Not Detected [facility] Comment: Methodology: Race Starter-Mediated Amplification This assay detects E6/E7 viral messenger RNA (mRNA) from 14 high-risk HPV types (16,18,31,33,35,39,45,51,52,56,58,59,66,68). The analytical performance characteristics of this assay have been determined by [employer]. The modifications have not been cleared or approved by the FDA. This assay has been validated pursuant to the CLIA regulations and is used for clinical purposes. For additional information, please refer to http://education.[employer]St[employer]/faq/CHA993g4 (This link if provided for information/ educational purposes only.) 07/21/2020 1:07 PM EDT Taryn Huang [facility] LAB BLOOD ORDERABLES Final Result [facility] [address] from Last 3 Months or Most Recently Relevant to Health Maintenance Insurance [facility] LONG TERM OPTIONS (O D-SNP) JOSH JENKINS [id number] Care Teams Bag Hanger Relationship Specialty Start Date End Date Sanaz Pope MD [address] [place] [phone] PCP - General Family Medicine 10/13/21
--- OUTSIDE RECORDS SUMMARY | 2024-12-27 09:28 | XMS_ITS | Encounter Summary ---
Author Organization [employer] Address [address] [facility] [address] [place] [address] Care Team Providers Care Disease Management Nurse Name Role Phone Sanaz Pope MD Primary Care Provider [phone] Reason for Referral * Consultation (Routine) - Closed Specialty Diagnoses / Procedures Referred By Contshahram t Referred To Contact Otolaryngology Diagnoses Mixed conductive and sensorineural hearing loss of both ears Sanaz Pope MD [address] [place] [address] Phone: tel: fax: [facility] [address] Phone: tel: fax: Referral ID Status Reason Start Date Expiration Date V isits Requested Visits Authorized [id number] Closed Specialty Services Required 01/29/2024 01/28/2025 6 6 Encounter Details Date Type Department Care Team (Late st Contact Info) Description 01/21/2024 Orders Only [facility] MEDICINE [address] [place], [place] [phone] Sanaz Pope MD [address] [place], [place] [phone] Mixed conductive and sensorineural hearing loss of [...] as of this encounter Plan of Treatment Scheduled Referrals Name Type Priority Associated Diagnoses [...] documented as of this encounter Care Teams Disease Management Nurse Relationship Specialty Start Date End Date Sanaz Pope MD [address] [place] [address] [phone] PCP - General Family Medicine 10/13/21 documented as of this encounter
--- OUTSIDE RECORDS SUMMARY | 2024-12-27 09:28 | XMS_ITS | Encounter Summary ---
Author Organization [employer] Address [address] [facility] [address] [place] [address] Care Team Providers Care Tankroom Worker Name Role Phone Sanaz Pope MD Primary Care Provider [phone] Encounter Details Date Type Department Care Team (Late st Contact Info) Description 03/07/2023 Orders Only [facility] MEDICINE [address] [place], [place] [phone] Sanaz Pope MD [address] [place], [place] [phone] Social History Tobacco Use Types Packs/Day Years [...] on filedocumented in this encounter Care Teams Tankroom Worker Relationship Specialty Start Date End Date Sanaz Pope MD [address] [place] [id number] PCP - General Family Medicine 10/13/21 documented as of this encounter
--- OUTSIDE RECORDS SUMMARY | 2024-12-27 09:28 | XMS_ITS | Encounter Summary ---
Author Organization [employer] Address [address] [facility] [address] [place] [address] Care Team Providers Care Cleaning Attendant Name Role Phone Sanaz Pope MD Primary Care Provider [phone] Encounter Details Date Type Department Care Team (Late st Contact Info) Description 06/22/2023 Orders Only [facility] MEDICINE [address] [place], [place] [phone] Provider, MD Alisa Social History Tobacco Use [...] on filedocumented in this encounter Care Teams Cleaning Attendant Relationship Specialty Start Date End Date Sanaz Pope MD [address] [place] [id number] PCP - General Family Medicine 10/13/21 documented as of this encounter
--- OUTSIDE RECORDS SUMMARY | 2024-12-27 09:29 | XMS_ITS | Encounter Summary ---
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 TC via P/I#[id number], someone answered call X2, each time hanging up after I was introduced. Called back a 3rd time, no answer. L/M stating she needs to call back to reschedule her INSURANCE VERIFICATION REPRESENTATIVE appt she NCNS for 08/04/22. Phone number provided. Will send message to PCP requesting hold on Tramadol RX until she reschedules INSURANCE VERIFICATION REPRESENTATIVE RV appt. documented in this encounter Plan of Treatment Not on file documented as of this encounter Visit Diagnoses Diagnosis Cervicalgia documented in this encounter Care Teams Cost Consultant Relationship Specialty Start Date End Date Sanaz Pope MD [address] [place] [id number] PCP - General Family Medicine 10/13/21 documented as of this encounter
== END 2024-12-27 09:53 | disposition home or self-care (01) ==
LOC: HO.HOS 08:58
PROVIDERS: PCP General Practice; Visit Provider Physician Assistant
DX: M17.11 Unilateral primary osteoarthritis, right knee (principal)
CPT/HCPCS: 99214; G2211

== ENCOUNTER → 2024-12-27 09:15 | Outpatient (BNV) | payer OTHER, SELFPAY | PROVIDERS: PCP General Practice; Visit Provider Radiology Diagnostic Ultrasound | DX: M17.11 Unilateral primary osteoarthritis, right knee (principal) | CPT/HCPCS: 73562 ==